=== PATIENT | female | born 1960 | race Caucasian/White ===

== ENCOUNTER → 2017-10-25 14:09 | Outpatient (CLI) | payer MEDICAID, SELFPAY ==
--- NOTE | 2017-10-25 14:13 | MM_ITS ---
MM Dig screening mamm BI w/CAD CAD Screening COMPARISON: Digital mammograms with CAD X 27/09/2014 and additional views of both breasts 10/17/2014 INDICATION: There is a history of breast cancer in patient's paternal cousin diagnosed before menopause. TECHNIQUE: Standard CC and MLO images were obtained. R2 CAD reviewed. FINDINGS: Moderate diffuse fibroglandular densities are seen throughout both breasts. There are couple benign-appearing calcifications in each breast. There is no suspicious lesion in either breast and there are no suspicious microcalcifications. A nodular densities seen in the left breast on previous mammogram is not seen and likely was a cyst which is decompressed. IMPRESSION: Moderate diffuse breast density with no suspicious lesion seen BI-RADS Category: 2 Benign Finding(s) RECOMMENDED FOLLOW-UP: 1YR - 1 YEAR FOLLOW-UP (A letter has been sent to the patient regarding results of the study.)
== END ==
PROVIDERS: PCP Internal Medicine Adolescent Medicine; Visit Provider Nurse Practitioner Family
DX: Z12.31 Encounter for screening mammogram for malignant neoplasm of breast (principal)
CPT/HCPCS: 77067

== ENCOUNTER → 2017-10-26 10:10 | Outpatient (CLI) | payer MEDICAID, SELFPAY ==
[2017-10-26 11:12] LABS: Basophils % 0.4 % (0.1-2.0); Eosinophils # 0.2 K/mm3 (0.0-0.4); Eosinophils % 1.7 % (0.1-12.0); Lymphocytes # 2.8 K/mm3 (0.7-4.5); Lymphocytes % 30.3 K/mm3 (10-50); Mean Corpuscular HGB Conc 31.7 g/dL (31.8-35.4); Mean Corpuscular Hemoglobin 28.2 pg (27.0-31.2); Mean Corpuscular Volume 89.1 fl (81-99); Mean Platelet Volume 9.8 fl (7.4-10.4); Monocytes # 0.5 K/mm3 (0.1-1.0); Monocytes % 5.9 % (1.7-9.3); Neutrophils # 5.6 K/mm3 (1.8-7.8); Neutrophils % 61.7 % (37.0-80.0); Platelet Count 247 K/mm3 (142-424); Red Blood Count 4.94 M/mm3 (4.20-5.40); Red Cell Distribution Width 14.4 % (11.5-17.5); White Blood Count 9.1 K/mm3 (4.8-10.8)
[2017-10-26 11:32] LABS: Alanine Aminotransferase 100 U/L (12-78); Albumin Level 3.8 gm/dL (3.4-5.0); Alkaline Phosphatase 90 U/L (46-116); Anion Gap 10.8 mEq/L (5-15); Aspartate Amino Transferase 60 U/L (15-37); Bilirubin,Total 0.3 mg/dL (0.2-1.0); Blood Urea Nitrogen 13 mg/dL (7-18); Calcium 9.1 mg/dL (8.5-10.1); Carbon Dioxide 28 mmol/L (21.0-32.0); Chloride 103 mmol/L (98-107); Chol/HDL Ratio 6.4 (1-3.5); Cholesterol 174 mg/dL (140-200); Creatinine,Serum 0.87 mg/dL (0.55-1.02); Estimated Glomerular Filt Rate 68 ml/min (>60); GFR (African American) 82 ML/MIN (>60); Globulin 3.7 gm/dl (1.3-3.2); Glucose 218 mg/dL (74-106); HDL Cholesterol 27 mg/dL (29-89); LDL Cholesterol 77 mg/dL (0-130); Potassium 3.8 mmoL/L (3.5-5.1); Sodium 138 mmol/L (136-145); Total Protein,Serum 7.5 gm/dL (6.4-8.2); Triglycerides 351 mg/dL (30-200); VLDL Cholesterol 70 mg/dL (0-40)
[2017-10-26 11:36] LABS: Hemoglobin A1C 6.9 % (0.0-7.0)
[2017-10-26 12:00] VITALS: PULSE 84
--- NOTE | 2017-10-26 12:16 | XR_ITS ---
XR chest 2V HISTORY: ITS.REASON: COPD WITH CHRONIC BRONCHITIS . COPD cough. Current smoker. ORDERING PHYSICIAN: Aniket Martínez MD PATIENT AGE: 57 years Technique: PA and lateral chest COMPARISON: 08/23/2015 AP chest & January 2013 2 view chest FINDINGS: Nothing definitely acute. The slight coarsening markings at the medial right and left lung base appears similar to previous studies no discrete focal pneumonia. 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 Hilar and mediastinal structures unchanged. Chest wall and T-spine stable.. Perhaps mild hyperexpansion. Borderline cardiomegaly. Normal pulmonary vascularity.. IMPRESSION: Nothing definitely acute. No significant new findings Borderline cardiomegaly. . Minor chronic changes.
--- NOTE | 2017-10-26 12:16 | US_ITS ---
US soft tissue head and neck Ordering Physician: Aniket Martínez MD Patient Age: 57 years: Female HISTORY: ITS.REASON: SOFT TISSUE ANOMALY NEC enlarging soft tissue mass of back TECHNIQUE: Ultrasound back. COMPARISON :No previous CT There is a previous ultrasound study from December 2012 FINDINGS Ultrasound survey of the large bulging mass of the left back inferior to the scapula shows a diffuse fairly homogeneous hypoechoic area most compatible with a large lipoma. It now measures nearly 3 cm AP.. (. It Appear to measure up to 1.5 cm AP on the previous 2012 ultrasound, supporting interval enlargement reported by patient.) Clinically measured this bulging mass spans at least 4 inches wide x 4.5 inches. length.. With this large size it is difficult a to evaluate its overall volume with ultrasound. Although ultrasound can suggest lipoma, CT can confirm fatty lipoma if need be.. CT is excellent imaging tool for fat. And CT of be required if surgery is contemplated to provide overview. (The technologist described this area spanning space from from approximately T4-T12 at the here at lef back.) IMPRESSION Findings are compatible with a large lipoma here at the left back,, inferior to the scapula. Patient that states that this has enlarged Ultrasound Imaging supports that has significantly enlarged when compared to 2013. Although most likely a lipoma by ultrasound appearance; CT would be to be required to confirm as lipoma & confirmed fat density here.
[2017-10-27 17:12] LABS: Vitamin D 25 Hydroxy 28.9 ng/mL (30.0-100.0)
[2017-10-28 10:13] LABS: Hep A Ab, IgM Negative (Negative); Hepatitis B Core Antibody IgM Negative (Negative); Hepatitis B Surface Antigen Negative (Negative)
[2017-10-28 18:29] LABS: Hepatitis C Antibody <0.1 s/co ratio (0.0-0.9)
== END ==
PROVIDERS: Nurse Practitioner Family; PCP Internal Medicine Adolescent Medicine; Visit Provider Internal Medicine Adolescent Medicine
DX: J44.9 Chronic obstructive pulmonary disease, unspecified (principal); Q79.8 Other congenital malformations of musculoskeletal system; E11.9 Type 2 diabetes mellitus without complications; E55.9 Vitamin D deficiency, unspecified; I10 Essential (primary) hypertension; E78.5 Hyperlipidemia, unspecified; G47.33 Obstructive sleep apnea (adult) (pediatric); R06.09 Other forms of dyspnea; Z72.0 Tobacco use; I27.20 Pulmonary hypertension, unspecified; E66.9 Obesity, unspecified
CPT/HCPCS: 36415; 71046; 76536; 80053; 80061; 80074; 82043; 82652; 83036; 85025; 94060; 94640; 94727; 94729

== ENCOUNTER → 2017-11-15 11:00 | Outpatient (CLI) | payer MEDICAID, SELFPAY ==
[2017-11-15 11:31] LABS: Basophils # 0.1 K/mm3 (0-0.2); Basophils % 0.7 % (0.1-2.0); Eosinophils # 0.1 K/mm3 (0.0-0.4); Eosinophils % 1.5 % (0.1-12.0); Hematocrit 43.5 % (37.0-47.0); Hemoglobin 14.1 g/dL (12.2-16.2); Lymphocytes # 3.2 K/mm3 (0.7-4.5); Lymphocytes % 34.2 K/mm3 (10-50); Mean Corpuscular HGB Conc 32.3 g/dL (31.8-35.4); Mean Corpuscular Volume 89.8 fl (81-99); Monocytes # 0.6 K/mm3 (0.1-1.0); Monocytes % 6.8 % (1.7-9.3); Neutrophils # 5.4 K/mm3 (1.8-7.8); Neutrophils % 56.8 % (37.0-80.0); Platelet Count 255 K/mm3 (142-424); Red Blood Count 4.85 M/mm3 (4.20-5.40); Red Cell Distribution Width 14.4 % (11.5-17.5); White Blood Count 9.4 K/mm3 (4.8-10.8)
[2017-11-15 13:52] LABS: Anion Gap 15.3 mEq/L (5-15); Blood Urea Nitrogen 18 mg/dL (7-18); Carbon Dioxide 28 mmol/L (21.0-32.0); Chloride 103 mmol/L (98-107); Creatinine,Serum 0.89 mg/dL (0.55-1.02); Estimated Glomerular Filt Rate 66 ml/min (>60); GFR (African American) 80 ML/MIN (>60); Glucose 211 mg/dL (74-106); Potassium 4.3 mmoL/L (3.5-5.1); Sodium 142 mmol/L (136-145)
== END ==
PROVIDERS: Visit Provider Surgery
DX: Z01.818 Encounter for other preprocedural examination (principal); D17.1 Benign lipomatous neoplasm of skin and subcutaneous tissue of trunk
CPT/HCPCS: 36415; 80048; 85025; 93005

== ENCOUNTER → 2017-12-15 14:12 | Outpatient (CLI) | payer MEDICAID, SELFPAY | PROVIDERS: PCP Internal Medicine Adolescent Medicine; Visit Provider Internal Medicine | DX: R01.1 Cardiac murmur, unspecified (principal) | CPT/HCPCS: 93306 ==

== ENCOUNTER → 2017-12-18 14:54 | Outpatient (CLI) | payer MEDICAID, SELFPAY ==
[2017-12-18 16:30] LABS: Alanine Aminotransferase 107 U/L (12-78); Albumin Level 3.6 gm/dL (3.4-5.0); Albumin/Globulin Ratio 1.1 (1.1-1.8); Alkaline Phosphatase 100 U/L (46-116); Anion Gap 13.9 mEq/L (5-15); Aspartate Amino Transferase 64 U/L (15-37); Bilirubin,Total 0.3 mg/dL (0.2-1.0); Blood Urea Nitrogen 12 mg/dL (7-18); Calcium 9.1 mg/dL (8.5-10.1); Carbon Dioxide 28 mmol/L (21.0-32.0); Chloride 105 mmol/L (98-107); Creatinine,Serum 0.74 mg/dL (0.55-1.02); Estimated Glomerular Filt Rate 81 ml/min (>60); GFR (African American) 99 ML/MIN (>60); Globulin 3.2 gm/dl (1.3-3.2); Glucose 183 mg/dL (74-106); Potassium 4.9 mmoL/L (3.5-5.1); Sodium 142 mmol/L (136-145); Total Protein,Serum 6.8 gm/dL (6.4-8.2)
== END ==
PROVIDERS: PCP Internal Medicine Adolescent Medicine; Visit Provider Nurse Practitioner Family
DX: R74.8 Abnormal levels of other serum enzymes (principal)
CPT/HCPCS: 36415; 80053

== ENCOUNTER → 2018-01-15 08:30 | Outpatient (CLI) | payer MEDICAID, SELFPAY ==
--- NOTE | 2018-01-15 10:00 | US_ITS ---
US liver HISTORY: ITS.REASON: ELEVATED LIVER ENZYMES ORDERING PHYSICIAN: Annabella Maradiaga PATIENT AGE: 57 years COMPARISON: None FINDINGS: PANCREAS:Unremarkable. No obvious mass or abnormal fluid collection. No ductal dilatation LIVER:No focal liver lesions demonstrated. Homogeneous echogenicity. No intrahepatic biliary ductal dilatation evident. There is appropriate directional blood flow within a nondilated portal vein. There is increased echogenicity of the liver suggesting hepatic steatosis. RIGHT KIDNEY:Unremarkable. Normal size and echogenicity. No hydronephrosis GALLBLADDER:Gallbladder is mildly distended at 9.5 x 3 cm. There is a small polyp lung stress. The gallbladder wall does not appear to move or shadow measuring 6 mm. Echogenic focus is present along the upper aspect of the gallbladder with some mild posterior acoustical shadowing which represent small stone. No biliary dilatation. No gallbladder wall thickening or pericholecystic fluid. IMPRESSION: 1. Small gallbladder polyp with possible cyst small adherent stone 2. Mildly distended gallbladder. 3. Increased echogenicity of liver suggesting fatty liver
== END ==
PROVIDERS: PCP Internal Medicine Adolescent Medicine; Visit Provider Nurse Practitioner Family
DX: R74.8 Abnormal levels of other serum enzymes (principal)
CPT/HCPCS: 76705

== ENCOUNTER → 2018-01-23 10:07 | Outpatient (CLI) | payer MEDICAID, SELFPAY ==
[2018-01-23 11:53] LABS: Basophils # 0.1 K/mm3 (0-0.2); Basophils % 0.6 % (0.1-2.0); Eosinophils # 0.2 K/mm3 (0.0-0.4); Eosinophils % 2.4 % (0.1-12.0); Hematocrit 38.8 % (37.0-47.0); Hemoglobin 12.6 g/dL (12.2-16.2); Lymphocytes # 2.8 K/mm3 (0.7-4.5); Lymphocytes % 32.9 K/mm3 (10-50); Mean Corpuscular HGB Conc 32.6 g/dL (31.8-35.4); Mean Corpuscular Hemoglobin 29.4 pg (27.0-31.2); Mean Corpuscular Volume 90.3 fl (81-99); Mean Platelet Volume 8.7 fl (7.4-10.4); Monocytes # 0.5 K/mm3 (0.1-1.0); Monocytes % 6.2 % (1.7-9.3); Neutrophils # 4.9 K/mm3 (1.8-7.8); Neutrophils % 57.9 % (37.0-80.0); Platelet Count 245 K/mm3 (142-424); Red Cell Distribution Width 14.3 % (11.5-17.5); White Blood Count 8.5 K/mm3 (4.8-10.8)
[2018-01-23 12:39] LABS: Alanine Aminotransferase 64 U/L (12-78); Albumin Level 3.9 gm/dL (3.4-5.0); Albumin/Globulin Ratio 1.2 (1.1-1.8); Alkaline Phosphatase 80 U/L (46-116); Aspartate Amino Transferase 45 U/L (15-37); Bilirubin,Total 0.4 mg/dL (0.2-1.0); Blood Urea Nitrogen 32 mg/dL (7-18); Calcium 9.3 mg/dL (8.5-10.1); Carbon Dioxide 30 mmol/L (21.0-32.0); Chloride 101 mmol/L (98-107); Creatinine,Serum 1.41 mg/dL (0.55-1.02); Estimated Glomerular Filt Rate 39 ml/min (>60); GFR (African American) 47 ML/MIN (>60); Globulin 3.2 gm/dl (1.3-3.2); Glucose 131 mg/dL (74-106); Sodium 140 mmol/L (136-145); Total Protein,Serum 7.1 gm/dL (6.4-8.2)
== END ==
PROVIDERS: PCP Internal Medicine Adolescent Medicine; Visit Provider Surgery
DX: K80.20 Calculus of gallbladder without cholecystitis without obstruction (principal)
CPT/HCPCS: 36415; 80053; 85025

== ENCOUNTER → 2018-05-22 10:38 | Outpatient (POV) | payer MEDICAID, SELFPAY | PROVIDERS: Visit Provider Internal Medicine | DX: Z00.00 Encounter for general adult medical examination without abnormal findings (principal) ==

== ENCOUNTER → 2018-06-20 12:58 | Outpatient (CLI) | payer MEDICAID, SELFPAY ==
--- NOTE | 2018-06-20 13:03 | CT_ITS ---
CT lung screening EXAM: CT LUNG LOW DOSE WO CONTRAST HISTORY: 30 pack-year smoking history, asymptomatic for lung cancer ITS.REASON: NICOTINE DEPENDENCE ORDERING PHYSICIAN: Gonzalez Bermudez MD PATIENT AGE: 58 years COMPARISON: None TECHNIQUE: The exam was performed on a GE Light Speed [address] scanner using 2.90 mGy CTDI. A low dose helical CT CHEST was performed on a multi-detector scanner. All CT scans at the facility use one or more dose reduction, viz: automated exposure control, ma/kV adjustment per patient size (including targeted exams where dose is matched to indication, i.e. head), or iterative reconstruction technique. The LDCT was performed in a facility that meets the criteria for the screening program. Data regarding this exam was submitted to ACR which is an approved registry. The order for this exam indicates that it came as a result of a lung cancer screening counseling shard decision-making visit that included all the elements required of such a visit including smoking cessation. The radiologist interpreting this exam meets the [facility] criteria for the LDCT lung cancer screening program. The exam is reported using the Lung-RADS classification scale and reported to the ACR registry. NOTE: This study was performed for the specific purposes of lung cancer screening and is not an alternative to diagnostic chest CT. RADIATION DOSE: CTDI vol(CT dose Index-volume) = 2.90mG DLP (Dose Length Product) = 110.20 mGcm FINDINGS: There are scattered calcified granulomas. Mild hyperinflation with attenuation of the peripheral pulmonary vessels and some coarsening of bronchovascular markings consistent with COPD. No suspicious pulmonary nodules. There are some scattered areas of scarring IMPRESSION: 1. Lung RADS Category: 2, benign 2. Other findings: COPD RECOMMENDATIONS: 12 month LDCT follow-up
[2018-06-20 15:45] VITALS: PULSE 76; PULSE 80
[2018-06-20 16:17] VITALS: BP 115/75; BP 135/90; PULSE 102; PULSE 76; RESP 14; RESP 20; O2SAT 96; O2SAT 98
== END ==
PROVIDERS: PCP Internal Medicine Adolescent Medicine; Visit Provider Internal Medicine
DX: Z12.2 Encounter for screening for malignant neoplasm of respiratory organs (principal); Z87.891 Personal history of nicotine dependence
CPT/HCPCS: 94060; 94618; 94640; 94726; 94729

== ENCOUNTER → 2018-06-26 08:54 | Outpatient (CLI) | payer MEDICAID, SELFPAY ==
--- NOTE | 2018-06-26 09:00 | XR_ITS ---
XR knee RT 4V HISTORY: Knee pain, arthritis ITS.REASON: 4 views weightbearing ORDERING PHYSICIAN: Lexie Garrison MD PATIENT AGE: 58 years COMPARISON: 08/11/2016 FINDINGS: Weightbearing views are performed along with patellar view. There are moderate to severe osteoarthritic changes of the medial compartment with loss of joint space and osteophyte formation. Osteophytes are also present at the intercondylar region and the posterior patella. There is a small knee joint effusion in the suprapatellar region. No fracture or dislocation. Probably no significant change in the osteoarthritis concerning the difference in technique. IMPRESSION: Osteoarthritis of the right knee with knee joint effusion as described above
--- NOTE | 2018-06-26 09:00 | XR_ITS ---
XR knee LT 4V HISTORY: Knee pain, osteoarthritis ITS.REASON: 4 views weightbearing ORDERING PHYSICIAN: Lexie Garrison MD PATIENT AGE: 58 years COMPARISON: 08/11/2016 FINDINGS: There are moderate osteoarthritic changes of the medial compartment of left knee with loss of joint space and osteophyte formation. Osteophytes are present at the posterior patella and intercondylar region of the distal femur. Small suprapatellar effusion noted. IMPRESSION: Overall no significant change in the osteoarthritis of the left knee with small knee joint effusion
== END ==
PROVIDERS: PCP Internal Medicine Adolescent Medicine; Visit Provider Orthopaedic Surgery
DX: M25.561 Pain in right knee (principal); M25.562 Pain in left knee
CPT/HCPCS: 73564

== ENCOUNTER → 2019-03-25 15:35 | Outpatient (CLI) | payer OTHER, SELFPAY ==
[2019-03-25 16:02] LABS: Basophils # 0.1 K/mm3 (0-0.2); Basophils % 0.6 % (0.1-2.0); Eosinophils # 0.2 K/mm3 (0.0-0.4); Eosinophils % 1.4 % (0.1-12.0); Hemoglobin 13.8 g/dL (12.2-16.2); Lymphocytes # 3.9 K/mm3 (0.7-4.5); Lymphocytes % 33.9 % (10-50); Mean Corpuscular Hemoglobin 29.3 pg (27.0-31.2); Mean Corpuscular Volume 91.5 fl (81-99); Monocytes # 0.7 K/mm3 (0.1-1.0); Monocytes % 5.7 % (1.7-9.3); Neutrophils # 6.6 K/mm3 (1.8-7.8); Neutrophils % 58.4 % (37.0-80.0); Platelet Count 307 K/mm3 (142-424); Red Blood Count 4.71 M/mm3 (4.20-5.40); Red Cell Distribution Width 15.1 % (11.5-17.5); White Blood Count 11.4 K/mm3 (4.8-10.8)
[2019-03-25 17:01] LABS: Hemoglobin A1C 8.1 % (0.0-7.0)
[2019-03-25 18:30] LABS: Alanine Aminotransferase 63 U/L (12-78); Albumin Level 3.7 gm/dL (3.4-5.0); Albumin/Globulin Ratio 1.1 (1.1-1.8); Alkaline Phosphatase 95 U/L (46-116); Aspartate Amino Transferase 45 U/L (15-37); Bilirubin,Total 0.3 mg/dL (0.2-1.0); Blood Urea Nitrogen 30 mg/dL (7-18); Carbon Dioxide 26 mmol/L (21.0-32.0); Chloride 101 mmol/L (98-107); Chol/HDL Ratio 5.7 (1-3.5); Cholesterol 177 mg/dL (140-200); Creatinine,Serum 1.41 mg/dL (0.55-1.02); Estimated Glomerular Filt Rate 38 ml/min (>60); GFR (African American) 47 ML/MIN (>60); Globulin 3.4 gm/dl (1.3-3.2); Glucose 145 mg/dL (74-106); HDL Cholesterol 31 mg/dL (29-89); LDL Cholesterol 84 mg/dL (0-130); Sodium 140 mmol/L (136-145); Thyroid Stimulating Hormone 2.02 uIU/ml (0.358-3.740); Total Protein,Serum 7.1 gm/dL (6.4-8.2); Triglycerides 312 mg/dL (30-200); VLDL Cholesterol 62 mg/dL (0-40)
[2019-03-27 08:21] LABS: Microalbumin, Urine 6.2 ug/mL (Not Estab.)
[2019-03-27 13:17] LABS: Vitamin D 25 Hydroxy 22.8 ng/mL (30.0-100.0)
== END ==
PROVIDERS: Visit Provider Nurse Practitioner Family
DX: E66.01 Morbid (severe) obesity due to excess calories (principal); J44.9 Chronic obstructive pulmonary disease, unspecified; E55.9 Vitamin D deficiency, unspecified; E11.9 Type 2 diabetes mellitus without complications; Z79.84 Long term (current) use of oral hypoglycemic drugs
CPT/HCPCS: 36415; 80053; 80061; 82043; 82570; 82652; 83036; 84443; 85025

== ENCOUNTER → 2019-07-24 18:45 | Outpatient (CLI) | payer OTHER, SELFPAY | PROVIDERS: PCP Internal Medicine Adolescent Medicine; Visit Provider Nurse Practitioner Family | DX: J44.9 Chronic obstructive pulmonary disease, unspecified (principal); G47.33 Obstructive sleep apnea (adult) (pediatric); I27.20 Pulmonary hypertension, unspecified; F17.200 Nicotine dependence, unspecified, uncomplicated | CPT/HCPCS: 94762 ==

== ENCOUNTER → 2019-08-14 15:30 | Outpatient (CLI) | payer OTHER, SELFPAY ==
[2019-08-14 15:50] LABS: Basophils # 0.1 K/mm3 (0-0.2); Basophils % 0.9 % (0.1-2.0); Eosinophils # 0.2 K/mm3 (0.0-0.4); Eosinophils % 1.3 % (0.1-12.0); Hematocrit 40.6 % (37.0-47.0); Hemoglobin 12.9 g/dL (12.2-16.2); Lymphocytes # 4.6 K/mm3 (0.7-4.5); Lymphocytes % 33.9 % (10-50); Mean Corpuscular HGB Conc 31.8 g/dL (31.8-35.4); Mean Corpuscular Hemoglobin 29.4 pg (27.0-31.2); Mean Corpuscular Volume 92.5 fl (81-99); Monocytes # 0.8 K/mm3 (0.1-1.0); Monocytes % 6.2 % (1.7-9.3); Neutrophils # 7.8 K/mm3 (1.8-7.8); Neutrophils % 57.6 % (37.0-80.0); Platelet Count 304 K/mm3 (142-424); Red Blood Count 4.38 M/mm3 (4.20-5.40); Red Cell Distribution Width 15.3 % (11.5-17.5); White Blood Count 13.6 K/mm3 (4.8-10.8)
[2019-08-14 17:29] LABS: Alanine Aminotransferase 24 U/L (12-78); Albumin Level 4.4 g/dl (3.5-5.0); Albumin/Globulin Ratio 1.8 (1.1-1.8); Alkaline Phosphatase 71 U/L (38-126); Anion Gap 8.7 mEq/L (5-15); Aspartate Amino Transferase 22 U/L (14-36); Blood Urea Nitrogen 19 mg/dl (7-17); Calcium 9.7 mg/dl (8.4-10.2); Carbon Dioxide 29 mmol/L (22.0-30.0); Chloride 105 mmol/L (98-107); Estimated Glomerular Filt Rate 46 ml/min (>60); GFR (African American) 56 ML/MIN (>60); Globulin 2.4 g/dL (1.3-3.2); Glucose 117 mg/dl (74-100); Potassium 4.7 mmoL/L (3.5-5.1); Sodium 138 mmol/L (136-145); Total Protein,Serum 6.8 g/dl (6.3-8.2)
[2019-08-14 17:30] LABS: Bilirubin,Total < 0.1 mg/dl (0.2-1.3)
[2019-08-14 18:16] LABS: Hemoglobin A1C 6.6 % (4.0-6.0)
[2019-08-16 09:58] LABS: Creatinine, Urine 153.2 mg/dL (Not Estab.); Microalbumin, Urine 4.6 ug/mL (Not Estab.)
== END ==
PROVIDERS: Visit Provider Nurse Practitioner Family
DX: E11.9 Type 2 diabetes mellitus without complications (principal); G47.33 Obstructive sleep apnea (adult) (pediatric); Z79.84 Long term (current) use of oral hypoglycemic drugs
CPT/HCPCS: 36415; 80053; 82043; 82570; 83036; 85025

== ENCOUNTER 2019-09-04 23:36 | Emergency (ER) | payer OTHER, SELFPAY ==
[2019-09-04 23:54] VITALS: BP 128/83; PULSE 78; RESP 18; TEMP 36.8; O2SAT 98; BMI 46.3
--- NOTE | 2019-09-05 00:05 | XR_ITS ---
PROCEDURE: XR SHOULDER RT MIN 2V CLINICAL INDICATION: swelling Right shoulder mass COMPARISON: CT SHOULDER RT W CON from 09/05/2019 FINDINGS: Minimal osteoarthritic change acromioclavicular joint with mild subacromial stenosis. No fracture or dislocation. No lytic or blastic change. No soft tissue calcification. There is reported soft tissue mass of the shoulder for which CT or MRI suggested for more thorough evaluation. IMPRESSION: Mild degenerative changes Dictated by: Nuno Pisano MD 09/05/2019 07:16 Electronically signed by Nuno Pisano MD in [place] 09/05/2019 07:16
--- NOTE | 2019-09-05 01:16 | HMH.EDSKAF ---
ED Disposition Clinical Impression: Mass of arm Qualifiers: Laterality: right Qualified Code(s): R22.31 - Localized swelling, mass and lump, right upper limb Disposition: Home, Self-Care Condition on Discharge: Good Instructions: DI for Skin Abscess Additional Instructions: call pcp and surg in am Referrals: Aniket Martínez MD [Primary Care Provider] - Zaid Zimmerman MD [Staff Physician] - - Critical Care Critical Care Time: No Attestation: On 09/04/19, the high probability of a clinically significant, sudden or life threatening deterioration of the following system(s) required my full and direct attention, intervention and personal management. The time I documented below is in addition to time spent performing reported procedures but includes the following listed in this critical care notation. Medical Decision Making - Medical Records Medical records reviewed: Yes: I reviewed the patient's medical records. - Karsten Inquiry Pt receiving controlled substance: No Vital Signs: 09/04/19 23:54 Temperature 98.3 F Temperature Source Oral Pulse Rate [Right] 78 Respiratory Rate 18 Blood Pressure [Right Arm] 128/83 Blood Pressure Mean [Right Arm] 98 Blood Pressure Source [Right Arm] Automatic Cuff Blood Pressure Position [Right Arm] Sitting 02 Sat by Pulse Oximetry 98 Oxygen Delivery Method Room Air - Lab Data Lab results reviewed: Yes: I reviewed the patient's lab results. Lab Results 09/05/19 01:25: WBC 13.4 H, RBC 4.27, Hgb 13.0, Hct 38.5, MCV 90.0, MCH 30.4, MCHC 33.8, RDW 15.8, Plt Count 275, MPV 8.9, Neut % (Auto) 54.7, Lymph % (Auto) 38.0, [place] % (Auto) 4.9, Eos % (Auto) 1.4, Baso % (Auto) 1.0, Neut # (Auto) 7.4, Lymph # (Auto) 5.1 H, Teton # (Auto) 0.7, Eos # (Auto) 0.2, Baso # (Auto) 0.1 09/05/19 01:25: Sodium 138, Potassium 3.7, Chloride 104, Carbon Dioxide 27, Anion Gap 10.7, BUN 19 H, Creatinine 1.10 H, Estimated Creat Clear 45, Estimated GFR 51 L, Est GFR ( Amer) 62, Glucose 176 H, Calcium 9.5 Result diagrams: 09/05/19 01:25 09/05/19 01:25 Orders (Tests/Meds): ED MEDICATIONS Discontinued Medications Generic Name Dose Route Start Last Admin Trade Name Anastasia PRN Reason Stop Dose Admin Ioversol 70 ml 09/05/19 02:28 09/05/19 02:29 Rad-Optiray 350 100ml Vial IV 09/05/19 02:29 70 ml ONCE ONE Administration Protocol Sodium Chloride 10 ml 09/05/19 02:28 09/05/19 02:28 Rad-Saline Flush 10ml Syringe IV 09/05/19 02:29 10 ml ONCE ONE Administration ORDERS Category Date Time Status CT shoulder RT w con Stat Cat Scan 09/05/19 01:21 Taken XR shoulder RT min 2V Stat Exams 09/05/19 00:05 Taken - Radiology Data #1 Image(s): Shoulder Image Reviewed: Yes I reviewed the patient's radiology image Preliminary Findings: No Fracture Seen - CT Data CT Scan: Other (rt shoulder) Time Received: 02:[address] Reviewed: Yes: I have viewed the radiologist's interpretation Preliminary Findings: Abnormal (mass rt deltoid ) Skin/Abscess/FB HPI - General Chief complaint: Extremity Problem,Nontraumatic Stated complaint: Knot on right shoulder red and swollen Time Seen by Provider: 09/05/19 01:00 Mode of Arrival: Ambulatory Source of Information: Patient, Medical Record Limitations: No Limitations Description of Symptoms (Recalled from ER Triage Doc. by RN): Pt states she noticed swelling to her right shoulder tonight, denies pain or injury - History of Present Illness HPI narrative: swelling to rt shoulder which pt states started yesterday - no fever or trauma - MD complaint: lesion Onset (ago): day(s) Tetanus up to date: unsure Location: RUE Severity: moderate Associated symptoms: denies other symptoms Treatments prior to arrival: none - Related Data Home Medications Medication Instructions Recorded Confirmed canagliflozin 100 mg tablet 100 mg PO QAM 08/14/17 06/27/19 cetirizine 10 mg tablet 10 mg PO DAILY tab 08/14/17 06/27/19 fl
--- NOTE | 2019-09-05 01:21 | CT_ITS ---
PROCEDURE: CT SHOULDER RT W CON CLINICAL HISTORY: mass Palpable right shoulder mass COMPARISON: No exams were available for comparison TECHNIQUE: 70 mL Optiray 350 IV Axial images obtained with sagittal and coronal reformats. All CT scans at the facility use one or more dose reduction, viz: automated exposure control, ma/kV adjustment per patient size (including targeted exams where dose is matched to indication, i.e. head), or iterative reconstruction technique. FINDINGS: Patient was scanned with the arm above the head which somewhat distorts the anatomy of the shoulder. There is a fairly well-circumscribed oval soft tissue mass involving the central aspect of the deltoid muscle. This measures 3.7 x 3 x 3.3 cm and is homogeneous without significant enhancement. This does not involve the bone. No other significant anomalies are evident. There is calcified granuloma in the right upper lobe. There are few small nodes in the right axilla. Differential diagnosis for muscle soft tissue masses differential diagnosis for muscle masses IMPRESSION: 3.7 x 3 cm soft tissue mass contiguous with the central aspect of the right deltoid muscle suspicious for neoplasm. This has a nonspecific appearance and could be malignant or benign. Consider MRI without and with contrast for further evaluation. Dictated by: Nuno Pisano MD 09/05/2019 07:47 Electronically signed by Nuno Pisano MD in [place] 09/05/2019 07:47
[2019-09-05 01:42] LABS: Basophils # 0.1 K/mm3 (0-0.2); Eosinophils # 0.2 K/mm3 (0.0-0.4); Eosinophils % 1.4 % (0.1-12.0); Hematocrit 38.5 % (37.0-47.0); Lymphocytes # 5.1 K/mm3 (0.7-4.5); Mean Corpuscular HGB Conc 33.8 g/dL (31.8-35.4); Mean Corpuscular Hemoglobin 30.4 pg (27.0-31.2); Mean Platelet Volume 8.9 fl (7.4-10.4); Monocytes # 0.7 K/mm3 (0.1-1.0); Monocytes % 4.9 % (1.7-9.3); Neutrophils # 7.4 K/mm3 (1.8-7.8); Neutrophils % 54.7 % (37.0-80.0); Platelet Count 275 K/mm3 (142-424); Red Blood Count 4.27 M/mm3 (4.20-5.40); Red Cell Distribution Width 15.8 % (11.5-17.5); White Blood Count 13.4 K/mm3 (4.8-10.8)
[2019-09-05 01:46] LABS: Anion Gap 10.7 mEq/L (5-15); Blood Urea Nitrogen 19 mg/dl (7-17); Calcium 9.5 mg/dl (8.4-10.2); Carbon Dioxide 27 mmol/L (22.0-30.0); Chloride 104 mmol/L (98-107); Creatinine Clearance Estimated 45 mL/min (50-200); Estimated Glomerular Filt Rate 51 ml/min (>60); GFR (African American) 62 ML/MIN (>60); Glucose 176 mg/dl (74-100); Potassium 3.7 mmoL/L (3.5-5.1); Sodium 138 mmol/L (136-145)
[2019-09-05 02:58] VITALS: BP 130/78; PULSE 70; RESP 16; TEMP 36.8; O2SAT 100
== END 2019-09-05 02:59 | disposition home or self-care (01) ==
PROVIDERS: Emergency Provider Emergency Medicine; PCP Internal Medicine Adolescent Medicine
DX: R22.31 Localized swelling, mass and lump, right upper limb (principal); F41.8 Other specified anxiety disorders; K21.9 Gastro-esophageal reflux disease without esophagitis; J44.9 Chronic obstructive pulmonary disease, unspecified; E78.5 Hyperlipidemia, unspecified; I10 Essential (primary) hypertension; F17.210 Nicotine dependence, cigarettes, uncomplicated; Z79.899 Other long term (current) drug therapy
CPT/HCPCS: 73030; 73201; 80048; 85025; 99282; Q9967

== ENCOUNTER → 2019-09-16 10:22 | Outpatient (CLI) | payer OTHER, SELFPAY ==
--- NOTE | 2019-09-16 10:27 | MR_ITS ---
PROCEDURE: MR HUMERUS RT WO CON CLINICAL INDICATION: MASS OF DELTOID MUSCLE The radiology of muscle COMPARISON: CT SHOULDER RT W CON from 09/05/2019 TECHNIQUE: Routine multiplanar multi echo sequences are performed without gadolinium enhancement. FINDINGS: There is a well-circumscribed spindle shaped small soft tissue mass involving the junction the mid and anterior aspect of the deltoid muscle at the level of the humeral head. This lesion is isointense to muscle on T1 and hyperintense on T2 with some heterogeneous characteristics on the T2 images. This is peripheral in nature. The mass measures 5 cm longitudinal, 2.7 cm AP, and 3 cm transverse. Contrast was not utilized therefore enhancement pattern is not able to be assessed. No neurovascular involvement. This does not involve the bone and does not extend to the deepest portion of the muscle adjacent to the humeral head. There is some minimal amount fluid along the posterior and lateral aspect of the lesion. No obvious axillary adenopathy or other significant anomalies evident. IMPRESSION: Superficial spindle shaped well-circumscribed soft tissue mass of the deltoid muscle. Mass does show some heterogeneity on the T2 weighted images. Differential diagnosis would include low-grade sarcoma versus nerve sheath tumor such as schwannoma, neurofibroma or fibrous histiocytoma. This does not have fat characteristics and is not consistent with a lipoma or liposarcoma. Dictated by: Nuno Pisano MD 09/17/2019 17:02 Electronically signed by Nuno Pisano MD in [place] 09/17/2019 17:02
== END ==
PROVIDERS: PCP Internal Medicine Adolescent Medicine; Visit Provider Internal Medicine Adolescent Medicine
DX: M62.89 Other specified disorders of muscle (principal); R22.31 Localized swelling, mass and lump, right upper limb
CPT/HCPCS: 73218

== ENCOUNTER → 2019-09-18 14:51 | Outpatient (CLI) | payer OTHER, SELFPAY ==
--- NOTE | 2019-09-18 15:10 | ECG_ITS ---
APPROVED REPORT Exam: Resting ECG HR:70 bpm ECG Measurements Heart Rate 70 AXES TN 162 P 60 QRSd 88 QRS 9 QT 420 T 55 QTc 453 <Conclusion> Normal sinus rhythm Possible Left atrial enlargement Borderline ECG Electronically signed by : Lawrence Molina, 09/18/2019 17:31:46
[2019-09-18 15:12] LABS: Basophils # 0.2 K/mm3 (0-0.2); Basophils % 1.2 % (0.1-2.0); Eosinophils # 0.3 K/mm3 (0.0-0.4); Eosinophils % 1.5 % (0.1-12.0); Hematocrit 41.2 % (37.0-47.0); Hemoglobin 13.9 g/dL (12.2-16.2); Lymphocytes # 6.4 K/mm3 (0.7-4.5); Lymphocytes % 38.2 % (10-50); Mean Corpuscular HGB Conc 33.9 g/dL (31.8-35.4); Mean Corpuscular Hemoglobin 30.6 pg (27.0-31.2); Mean Corpuscular Volume 90.4 fl (81-99); Mean Platelet Volume 8.5 fl (7.4-10.4); Monocytes # 0.8 K/mm3 (0.1-1.0); Monocytes % 4.9 % (1.7-9.3); Neutrophils % 54.1 % (37.0-80.0); Platelet Count 362 K/mm3 (142-424); Red Blood Count 4.55 M/mm3 (4.20-5.40); Red Cell Distribution Width 15.2 % (11.5-17.5); White Blood Count 16.6 K/mm3 (4.8-10.8)
[2019-09-18 15:13] LABS: MANUAL DIFFERENTIAL MANUAL DIFFERENTIAL (MANUAL DIFF)
[2019-09-18 15:40] LABS: Chloride 101 mmol/L (98-107)
[2019-09-18 15:41] LABS: Lymphocytes % 36 % (10-50); Monocytes % 5 % (2-9); Neutrophils % 59 % (42-76); Platelet Estimate Normal; Potassium 4.1 mmoL/L (3.5-5.1); RBC Morphology Normal; Sodium 139 mmol/L (136-145); Total Cells Counted 100
[2019-09-18 15:43] LABS: Alanine Aminotransferase 39 U/L (12-78); Alkaline Phosphatase 97 U/L (38-126); Aspartate Amino Transferase 29 U/L (14-36); Bilirubin,Total 0.4 mg/dl (0.2-1.3); Blood Urea Nitrogen 15 mg/dl (7-17); Estimated Glomerular Filt Rate 51 ml/min (>60); GFR (African American) 62 ML/MIN (>60)
[2019-09-18 15:44] LABS: Albumin Level 4.5 g/dl (3.5-5.0); Albumin/Globulin Ratio 1.6 (1.1-1.8); Anion Gap 13.1 mEq/L (5-15); Calcium 9.9 mg/dl (8.4-10.2); Carbon Dioxide 29 mmol/L (22.0-30.0); Globulin 2.8 g/dL (1.3-3.2); Glucose 120 mg/dl (74-100); Total Protein,Serum 7.3 g/dl (6.3-8.2)
[2019-09-18 16:13] LABS: Coronavirus 19 IgG Antibody Negative (Negative); Coronavirus 19 IgM Antibody Negative (Negative)
== END ==
PROVIDERS: Visit Provider Surgery
DX: Z01.818 Encounter for other preprocedural examination (principal); D17.9 Benign lipomatous neoplasm, unspecified
CPT/HCPCS: 36415; 80053; 85007; 85025; 86328; 93005

== ENCOUNTER 2019-09-20 06:10 | Day surgery (SDC) | payer OTHER, SELFPAY ==
[2019-09-20] VITALS (9 sets, daily range): BP systolic 104–140; BP diastolic 67–84; PULSE 76–86; RESP 12–18; TEMP 36.1–36.6; O2SAT 90–98; BMI 45.3
[2019-09-20 06:39] LABS: POC Glucose,Bedside 178 (70-110)
--- NOTE | 2019-09-20 07:32 | P.PN_ITS ---
[facility] Anesthesia Checklist - Structural Data Admitted From: Home Planned Operative Procedure/s: excision neoplasm r shoulder Consent for Planned Operative Procedure(s) Verified: Yes - Additional verifications Anesthesia Reactions: No Hx Blood Transfusions: No Blood Transfusion Reaction: No - Airway Assessment C-Spine Mobility Assessed: Yes TMJ Mobility Assessed: Yes Dentition: Poor Dentition - Neurological Assessment Level of Consciousness: Awake, Alert, Appropriate - Anesthesia Plan Anesthesia Risk discussed: Yes Anesthesia Plan: Verified ASA Class: III Anesthesia Type: General [facility] History I have reviewed the patient's past medical history: Yes Medical History: Reports:: Anxiety, Asthma, Chronic Obstructive Pulmonary Disease (COPD), Depression, Diabetes Mellitus Type 2, Gastroesophageal Reflux Disease(GERD), Hyperlipidemia, Hypertension, Ulcer Denies:: Cancer, Diabetes Mellitus Type 1, Internal Pacemaker, MRSA, Seizures *Have you ever received a pneumonia vaccine?: No *Have you received a flu vaccine this season?: Yes Other Medical History: Reports: Other. Denies: Blood Transfusion Reaction Anesthesia experience/problems:: none Laterality Cases: Bilateral: Other Other Surgeries: Yes: Cancer Surgery, Cholecystectomy, Colonoscopy, , Tubal Ligation. No: Pacemaker Amputation: No Fractures: No - *Social History Educational Level: Attended High School Smoking Status: Current every day smoker Tobacco Type: cigarettes # Packs/Day (cigarettes): 1 Alcohol Intake: never Alcohol Intake Frequency:: other Substance Use Type: denies use *Occupational Status:: disabled Housing: apartment Household Members: none *Travel in the last 8 weeks: None - Psychiatric History Pschychiatric History:: Reports:: Anxiety, Depression Family Hx:: Diabetes, Heart Attack
--- NOTE | 2019-09-20 07:40 | HMH.ANESI ---
[facility] Anesthesia Record Part I Intake, IV Amount: 1,000 Estimated blood loss (mL): 0 Urine output (mL): 0 Blood Pressure: 126/67 SaO2: 90 Pulse Rate: 79 Respiratory Rate: 12 Temperature: 97 F Patient is:: Awake, Stable Stable to PACU at:: 07:35
--- NOTE | 2019-09-20 07:48 | HMH.OPNOTE ---
Date of procedure: 09/20/19 Pre-op Diagnosis:: Right deltoid lipoma (6 cm) Post-op Diagnosis:: Right deltoid mass (intramuscular lymphoid mass Procedure performed:: Excision of right intramuscular right deltoid mass (6 cm) Surgeon:: Zaid Zimmerman MD PHLEBOTOMY TECHNOLOGIST:: Kareem Gómez Anesthesia: LMA Estimated blood loss (mL): 10 Operative findings:: Lobulated intramuscular right deltoid mass with findings consistent with lymphoid tissue (not lipoma) Operative note:: After informed consent was obtained the patient was taken to the operating room and placed in the supine position. General anesthesia with laryngeal mask airway was achieved. The patient's right upper arm/deltoid region was prepped and draped in a sterile fashion. After infiltration local anesthetic an incision was made overlying the longitudinal axis of the mass. The deep subcutaneous tissue was dissected with electrocautery. The fascia overlying the deltoid was carefully opened. An intramuscular mass was carefully elevated and excised with a combination of blunt dissection and electrocautery. It was freed from surrounding tissue and passed off for pathologic evaluation. A small portion of the mass was placed in RPMI solution as it had findings more consistent with lymphoid tissue as opposed to lipoma. The fascia was reapproximated with interrupted Vicryl. Electrocautery was utilized to achieve hemostasis and skin was then closed with interrupted 4-0 nylon. Dressings were applied and the patient was transferred recovery in stable condition after removal of her laryngeal mask airway. Condition: stable Disposition: PACU Specimens:: Intramuscular right deltoid mass Complications:: No immediate
[2019-09-20 07:50] LABS: POC Glucose,Bedside 159 (70-110)
--- NOTE | 2019-09-20 07:50 | PC.NURSE ---
0736-oral airway removed by ENDY Phillip upon arrival to pacu-o2 @ 3l/nc in place, sats stable
--- NOTE | 2019-09-20 07:53 | PC.NURSE ---
0742-checked fsbs with results of 159-notified APPELLATE COURT JUDGE-no further orders
--- NOTE | 2019-09-20 08:18 | PC.NURSE ---
0802-detailed report called to MARNI Flower 0805-pt transported to post op via stretcher with araceli rails up and left in care of MARNI lFower with bed locked in lowest position, vss, pt stable
--- NOTE | 2019-09-20 08:50 | HMH.ANESII ---
[facility] Anesthesia Record Part II Discharge Time: 08:05 Destination: Surgical Day Care (OP Surgery) PACU nurse assessment reviewed?: Yes Patient Condition:: Good Anesthesia Complications:: None Swallowing reflex intact?: Yes Cyanosis?: No Blood Pressure: 127/73 Pulse Rate: 82 Temperature: 97.8 F Mental Status: Alert & Oriented Pain level:: 0 Nausea and/or vomitting:: None Intake, IV Amount: 0
== END 2019-09-20 08:40 | disposition home or self-care (01) ==
LOC: OR 06:11
PROVIDERS: PCP Internal Medicine Adolescent Medicine; Visit Provider Surgery
PROC: (CPT 23073; principal; 2019-09-20 07:30)
DX: D36.0 Benign neoplasm of lymph nodes; Z79.899 Other long term (current) drug therapy; Z79.84 Long term (current) use of oral hypoglycemic drugs; J44.9 Chronic obstructive pulmonary disease, unspecified; F41.9 Anxiety disorder, unspecified; I10 Essential (primary) hypertension; E78.5 Hyperlipidemia, unspecified; Z85.9 Personal history of malignant neoplasm, unspecified; Z72.0 Tobacco use; Z82.49 Family history of ischemic heart disease and other diseases of the circulatory system
CPT/HCPCS: 23073; 82962; 96374; J2405

== ENCOUNTER 2019-09-26 18:19 | Emergency (ER) | payer OTHER, SELFPAY ==
[2019-09-26 18:20] VITALS: BP 132/91; PULSE 87; RESP 18; TEMP 36.8; O2SAT 98; BMI 45.3
--- NOTE | 2019-09-26 18:37 | XR_ITS ---
PROCEDURE: XR FOOT RT 2V CLINICAL INDICATION: PAIN/SWELLING The COMPARISON: XR FOOT LT MIN 3V from 02/28/2019 XR FOOT LT MIN 3V from 07/08/2019 FINDINGS: No fracture or dislocation. No lytic or blastic change. There is normal mineralization. The joint spaces are well-preserved. No significant degenerative/arthritic changes. No erosive changes evident. Other findings:None. IMPRESSION: No acute findings. Dictated by: Nuno Pisano MD 09/27/2019 07:29 Electronically signed by Nuno Pisano MD in [place] 09/27/2019 07:29
--- NOTE | 2019-09-26 19:14 | HMH.EDEXTP ---
ED Disposition Clinical Impression: Cellulitis Disposition: Home Health Service Condition on Discharge: Good Instructions: Cellulitis Prescriptions: Sulfamethoxazole/Trimethoprim [Bactrim DS tablet] 1 each PO BID 10 Days #20 tab Transmission Status: Pending to [facility] Nabumetone 750 mg PO BID 10 Days #20 tab Transmission Status: Pending to [facility] Referrals: Aniket Martínez MD [Primary Care Provider] - - Critical Care Critical Care Time: No Attestation: On 09/26/19, the high probability of a clinically significant, sudden or life threatening deterioration of the following system(s) required my full and direct attention, intervention and personal management. The time I documented below is in addition to time spent performing reported procedures but includes the following listed in this critical care notation. Medical Decision Making - Medical Records Medical records reviewed: Yes: I reviewed the patient's medical records. - Karsten Inquiry Pt receiving controlled substance: No Vital Signs: 09/26/19 18:20 Temperature 98.3 F Temperature Source Oral Pulse Rate [Left Radial] 87 Respiratory Rate 18 Blood Pressure [Left Arm] 132/91 H Blood Pressure Mean [Left Arm] 104 Blood Pressure Source [Left Arm] Automatic Cuff Blood Pressure Position [Left Arm] Sitting 02 Sat by Pulse Oximetry 98 Oxygen Delivery Method Room Air - Lab Data Lab results reviewed: Yes: I reviewed the patient's lab results. Orders (Tests/Meds): ORDERS Category Date Time Status Foot XR right 2 views [XR foot RT 2V] Stat Exams 09/26/19 18:37 Taken - Radiology Data #1 Image(s): Foot/Toes Preliminary Findings: Normal/NAD Extremity Problem HPI - General Chief complaint: Extremity Injury, Lower Stated complaint: R Leg pain,burning,swollen,red Time Seen by Provider: 09/26/19 19:00 Mode of Arrival: Wheelchair Source of Information: Patient Limitations: No Limitations Description of Symptoms (Recalled from ER Triage Doc. by RN): PT C/O PAIN AND SWELLING IN THE RT FOOT THAT SHOOTS UP HER LEG WITH PRESSURE UPON STANDING - History of Present Illness HPI Narrative: Patient comes in with a 3-day history of right foot pain with no injury. Patient states that she has difficulty ambulating on the foot and swollen and also has some redness on the top of her foot. Patient denies any recent fever shakes or chills. Patient denies any sort of infectious process. Patient does state the pain is 7 out of 10 and sharp. Alleviating factors include rest and exacerbating factors include ambulation. - Related Data Home Medications Medication Instructions Recorded Confirmed canagliflozin 100 mg tablet 100 mg PO QAM 08/14/17 09/25/19 cetirizine 10 mg tablet 10 mg PO DAILY tab 08/14/17 09/25/19 fluticasone furoate 200 1 inh INHALATION Q24H 08/14/17 09/25/19 mcg-vilanterol 25 mcg/dose inhalation powder Losartan Potassium [Cozaar 100mg 100 mg PO ONCE 12/07/17 09/25/19 Tablets] Omeprazole [Omeprazole 40mg 40 mg PO DAILY 12/07/17 09/25/19 Capsule] metformin 500 mg tablet 1,000 mg PO BID tab 12/26/17 09/25/19 escitalopram oxalate 10 mg tablet 10 mg PO DAILY 30 Days #30 tab 06/05/18 09/25/19 venlafaxine 37.5 mg 1 tab PO DAILY 30 Days #30 cap 06/05/18 09/25/19 capsule,extended release 24 hr Previous Rx's Medication Instructions Recorded spironolactone 50 mg tablet 50 mg PO QAM #30 tab 04/06/18 carvedilol 6.25 mg tablet 6.25 mg PO BID #180 tab 08/20/18 furosemide 80 mg tablet 80 mg PO DAILY #90 tab 08/20/18 atorvastatin 20 mg tablet 20 mg PO DAILY #30 tab 10/29/18 Nabumetone 750 mg PO BID 10 Days #20 tab 09/26/19 Sulfamethoxazole/Trimethoprim 1 each PO BID 10 Days #20 tab 09/26/19 [Bactrim DS tablet] Allergies Allergy/AdvReac Type Severity Reaction Status Date / Time No Known Allergies Allergy Verified 09/25/19 14:21 [facility] History - Hepatitis A Screen Drug use history
[2019-09-26 19:26] VITALS: BP 132/91; PULSE 87; RESP 18; TEMP 36.8; O2SAT 98
== END 2019-09-26 19:27 | disposition home health service (06) ==
PROVIDERS: Emergency Provider Family Medicine; PCP Internal Medicine Adolescent Medicine
DX: L03.115 Cellulitis of right lower limb (principal); E11.9 Type 2 diabetes mellitus without complications; J44.9 Chronic obstructive pulmonary disease, unspecified; F41.8 Other specified anxiety disorders; I10 Essential (primary) hypertension; K21.9 Gastro-esophageal reflux disease without esophagitis; E78.5 Hyperlipidemia, unspecified; Z90.49 Acquired absence of other specified parts of digestive tract; Z79.84 Long term (current) use of oral hypoglycemic drugs; Z79.899 Other long term (current) drug therapy; F17.210 Nicotine dependence, cigarettes, uncomplicated
CPT/HCPCS: 73620; 99282

== ENCOUNTER → 2019-10-31 10:31 | Outpatient (CLI) | payer OTHER, SELFPAY ==
[2019-11-01 14:43] LABS: Covid-19 Nasal PCR Sendout Lex Not Detected
== END ==
DX: Z01.818 Encounter for other preprocedural examination (principal)
CPT/HCPCS: U0004

== ENCOUNTER → 2020-04-22 18:14 | Outpatient (CLI) | payer OTHER, SELFPAY ==
[2020-04-22 19:07] LABS: Basophils # 0.1 K/mm3 (0-0.2); Basophils % 1.1 % (0.1-2.0); Eosinophils # 0.1 K/mm3 (0.0-0.4); Hematocrit 51.3 % (37.0-47.0); Hemoglobin 16.5 g/dL (12.2-16.2); Lymphocytes # 4.4 K/mm3 (0.7-4.5); Lymphocytes % 34.7 % (10-50); Mean Corpuscular HGB Conc 32.2 g/dL (31.8-35.4); Mean Corpuscular Hemoglobin 29.1 pg (27.0-31.2); Mean Corpuscular Volume 90.3 fl (81-99); Mean Platelet Volume 9.1 fl (7.4-10.4); Monocytes # 0.8 K/mm3 (0.1-1.0); Monocytes % 6.4 % (1.7-9.3); Neutrophils # 7.1 K/mm3 (1.8-7.8); Neutrophils % 56.9 % (37.0-80.0); Platelet Count 360 K/mm3 (142-424); Red Blood Count 5.68 M/mm3 (4.20-5.40); Red Cell Distribution Width 15.5 % (11.5-17.5); White Blood Count 12.5 K/mm3 (4.8-10.8)
[2020-04-22 19:11] LABS: Alanine Aminotransferase 24 U/L (12-78); Albumin Level 4.9 g/dl (3.5-5.0); Albumin/Globulin Ratio 1.6 (1.1-1.8); Alkaline Phosphatase 117 U/L (38-126); Anion Gap 16.7 mEq/L (5-15); Aspartate Amino Transferase 25 U/L (14-36); Bilirubin,Total 0.6 mg/dl (0.2-1.3); Blood Urea Nitrogen 18 mg/dl (7-17); Calcium 10.6 mg/dl (8.4-10.2); Carbon Dioxide 30 mmol/L (22.0-30.0); Chloride 94 mmol/L (98-107); Chol/HDL Ratio 7.1 (1-3.5); Cholesterol 242 mg/dl (140-200); Estimated Glomerular Filt Rate 46 ml/min (>60); GFR (African American) 56 ML/MIN (>60); Globulin 3.1 g/dL (1.3-3.2); Glucose 174 mg/dl (74-100); HDL Cholesterol 34 mg/dl (40-60); Potassium 4.7 mmoL/L (3.5-5.1); Sodium 136 mmol/L (136-145); Triglycerides 393 mg/dl (30-150); VLDL Cholesterol 79 mg/dL (0-40)
[2020-04-22 19:22] LABS: Direct LDL Cholesterol 152.01 mg/dL (100-129)
[2020-04-22 19:31] LABS: 25-OH Vitamin D, Total 20.1 ng/mL (30-100)
[2020-04-22 19:31] LABS: Hemoglobin A1C 7.1 % (4.0-6.0)
[2020-04-22 19:34] LABS: Free T4 (Free Thyroxine) 0.91 ng/dl (0.78-2.19)
[2020-04-22 19:43] LABS: Thyroid Stimulating Hormone 1.78 uIU/mL (0.465-4.68)
== END ==
PROVIDERS: Visit Provider Emergency Medicine
DX: E11.9 Type 2 diabetes mellitus without complications (principal); E55.9 Vitamin D deficiency, unspecified; Z79.84 Long term (current) use of oral hypoglycemic drugs
CPT/HCPCS: 80053; 80061; 82306; 83036; 84439; 84443; 85025

== ENCOUNTER 2020-06-21 13:55 | Emergency (ER) | payer OTHER, SELFPAY ==
[2020-06-21 13:57] VITALS: BP 110/77; PULSE 74; RESP 18; TEMP 36.9; O2SAT 97; BMI 44.8
--- NOTE | 2020-06-21 14:26 | HMH.EDGENADL ---
ED Disposition Clinical Impression: Tendinitis of left foot Disposition: Home, Self-Care Condition on Discharge: Good Instructions: DI for Foot Pain Additional Instructions: Use orthopedic boot. Ibuprofen as prescribed. Ice and elevation to reduce any swelling. Follow-up with Dr. Christianson as scheduled. Prescriptions: Ibuprofen [Ibuprofen 800mg Tablet] 800 mg PO Q8HP PRN #15 tab PRN Reason: Moderate Pain Transmission Status: Received by [facility] Referrals: Wisam Foster MD [Primary Care Provider] - - Critical Care Critical Care Time: No Attestation: On 06/21/20, the high probability of a clinically significant, sudden or life threatening deterioration of the following system(s) required my full and direct attention, intervention and personal management. The time I documented below is in addition to time spent performing reported procedures but includes the following listed in this critical care notation. Medical Decision Making - Karsten Inquiry Pt receiving controlled substance: No Vital Signs: 06/21/20 13:57 06/21/20 15:30 Temperature 98.4 F 98.4 F Temperature Source Oral Oral Pulse Rate 77 Pulse Rate [Left Radial] 74 Respiratory Rate 18 20 Blood Pressure 125/84 Blood Pressure [Left Arm] 110/77 Blood Pressure Mean [Left Arm] 88 Blood Pressure Source [Left Arm] Automatic Cuff Blood Pressure Position Sitting Blood Pressure Position [Left Arm] Sitting 02 Sat by Pulse Oximetry 97 Oxygen Delivery Method Room Air Room Air Orders (Tests/Meds): ED MEDICATIONS Discontinued Medications Generic Name Dose Route Start Last Admin Trade Name Freq PRN Reason Stop Dose Admin Ibuprofen 800 mg 06/21/20 15:09 06/21/20 15:17 Ibuprofen 400 Mg Tablet PO 06/21/20 15:10 800 mg ONCE ONE Administration ORDERS Category Date Time Status Foot XR left minimum 3 views [XR foot LT min 3V] Stat Exams 06/21/20 14:36 Taken - Radiology Data #1 Image(s): Foot/Toes Image Reviewed: Yes I reviewed the patient's radiology image Preliminary Findings: Normal/NAD General Adult HPI - General Chief complaint: PAIN Stated complaint: Sharp pain in left foot Time Seen by Provider: 06/21/20 14:27 Mode of Arrival: Wheelchair Limitations: No Limitations Description of Symptoms (Recalled from ER Triage Doc. by RN): Pt reports L foot pain that began lastnight. Pt reports when trying to bear weight or any touch to L foot sends sharp pains up into her ankle and leg area. Pt denies any injury. Pulses present with doppler. - History of Present Illness HPI narrative: Left foot pain that began yesterday afternoon. No injury, trauma, unusual activity. Locates the pain as being across her midfoot in the region of the metatarsals, more to the lateral aspect, most intense over the area of the fifth metatarsal. Pain increases when she dorsiflexes her foot and toes and when she tries to bear weight. No fever or redness. She says she had a similar thing a little over a year ago, saw her primary care doctor, that was Dr. Martínez at the time. She has an appointment to see Dr. Christianson, crystal machining coordinator, in a couple of weeks for what sounds like diabetic foot care. She has crutches and a walker at home. - Related Data Home Medications Medication Instructions Recorded Confirmed venlafaxine 37.5 mg 1 tab PO DAILY 30 Days #30 cap 06/05/18 06/15/20 capsule,extended release 24 hr buspirone 5 mg tablet 5 mg PO BID 04/22/20 06/15/20 Previous Rx's Medication Instructions Recorded spironolactone 50 mg tablet 50 mg PO QAM #30 tab 04/06/18 atorvastatin 40 mg tablet 40 mg PO HS #90 tab 04/23/20 cholecalciferol (vitamin D3) 25 25 mcg PO DAILY 90 Days #90 cap 04/23/20 mcg (1,000 unit) capsule ergocalciferol (vitamin D2) 1,250 1,250 mcg PO WEEKLY #18 cap 04/23/20 mcg (50,000 unit) capsule albuterol sulfate 90 mcg/actuation 2 puff INHALATION Q6H PRN #8.5 g 06/05/20 aerosol inhaler
--- NOTE | 2020-06-21 14:36 | XR_ITS ---
PROCEDURE: XR FOOT LT MIN 3V CLINICAL INDICATION: pain The COMPARISON: CR XR FOOT LT MIN 3V from 02/28/2019 CR XR FOOT LT MIN 3V from 07/08/2019 CR XR FOOT RT 2V from 09/26/2019 FINDINGS: No fracture or dislocation. No lytic or blastic change. There is normal mineralization. The joint spaces are well-preserved. No significant degenerative/arthritic changes. No erosive changes evident. Other findings:None. IMPRESSION: No acute findings. Dictated by: Nuno Pisano MD 06/22/2020 05:53 Nuno Pisano MD in [place] 06/22/2020 05:53
[2020-06-21 15:30] VITALS: BP 125/84; PULSE 77; RESP 20; TEMP 36.9; O2SAT 96
== END 2020-06-21 15:30 | disposition home or self-care (01) ==
PROVIDERS: Emergency Provider Emergency Medicine; PCP Emergency Medicine
DX: M77.52 Other enthesopathy of left foot and ankle (principal); I10 Essential (primary) hypertension; E11.9 Type 2 diabetes mellitus without complications; E78.5 Hyperlipidemia, unspecified; K21.9 Gastro-esophageal reflux disease without esophagitis; F41.8 Other specified anxiety disorders; F17.210 Nicotine dependence, cigarettes, uncomplicated
CPT/HCPCS: 29515; 73630; 99282

== ENCOUNTER → 2020-06-23 09:18 | Outpatient (CLI) | payer OTHER, SELFPAY ==
--- NOTE | 2020-06-23 09:18 | MM_ITS ---
PROCEDURE: MM DIG SCREENING MAMM BI W/CAD Digital Breast Tomosynthesis Included CLINICAL INDICATION: screening There is no personal or family history of breast cancer. COMPARISON: MG DMSB DIG MAMM-SCREEN TC from 10/03/2014 MG DMBAV DIG MAMM- TC ADD VIEWS from 10/17/2014 MG SCBI MM Dig screening mamm BI w/CAD from 10/25/2017 TECHNIQUE: Standard CC and MLO images and 3D Tomosynthesis was obtained. R2 CAD reviewed. FINDINGS: Moderate scattered fibroglandular densities are seen throughout both breasts. There are few benign-appearing microcalcifications in each breast. There is no suspicious lesion in either breast and no suspicious microcalcifications. IMPRESSION: Fibrofatty parenchyma of with no suspicious lesions seen BI-RAD Category: 2 Benign Finding(s) FOLLOW-UP: 1YR 1 Year Follow-up (A letter has been sent to the patient regarding results of the study.) Dictated by: Dr. Buddy Jorge MD 06/27/2020 08:55 Dr. Buddy Jorge MD in [place] 06/27/2020 08:55
== END ==
PROVIDERS: PCP Emergency Medicine; Visit Provider Emergency Medicine
DX: Z12.31 Encounter for screening mammogram for malignant neoplasm of breast (principal)
CPT/HCPCS: 77063; 77067

== ENCOUNTER → 2021-09-10 10:05 | Outpatient (CLI) | payer OTHER, SELFPAY ==
[2021-09-10 17:19] LABS: Basophils # 0.2 K/mm3 (0-0.2); Basophils % 1.8 % (0.1-2.0); Eosinophils # 0.2 K/mm3 (0.0-0.4); Eosinophils % 1.6 % (0.1-12.0); Hematocrit 42.6 % (37.0-47.0); Hemoglobin 13.9 g/dL (12.2-16.2); Lymphocytes % 39.8 % (10-50); Mean Corpuscular HGB Conc 32.6 g/dL (31.8-35.4); Mean Corpuscular Hemoglobin 29.1 pg (27.0-31.2); Mean Corpuscular Volume 89.1 fl (81-99); Mean Platelet Volume 8.9 fl (7.4-10.4); Monocytes # 0.5 K/mm3 (0.1-1.0); Monocytes % 5.1 % (1.7-9.3); Neutrophils # 5.2 K/mm3 (1.8-7.8); Neutrophils % 51.7 % (37.0-80.0); Platelet Count 339 K/mm3 (142-424); Red Blood Count 4.78 M/mm3 (4.20-5.40); Red Cell Distribution Width 15.4 % (11.5-17.5); White Blood Count 10.1 K/mm3 (4.8-10.8)
[2021-09-10 17:35] LABS: Alanine Aminotransferase 37 U/L (12-78); Albumin Level 4.4 g/dl (3.5-5.0); Albumin/Globulin Ratio 1.7 (1.1-1.8); Alkaline Phosphatase 89 U/L (38-126); Anion Gap 17.9 mEq/L (5-15); Aspartate Amino Transferase 38 U/L (14-36); Blood Urea Nitrogen 20 mg/dl (7-17); Calcium 10.1 mg/dl (8.4-10.2); Carbon Dioxide 25 mmol/L (22.0-30.0); Chloride 95 mmol/L (98-107); Chol/HDL Ratio 5.7 (1-3.5); Cholesterol 195 mg/dl (140-200); Estimated Glomerular Filt Rate 64 ml/min (>60); GFR (African American) 78 ML/MIN (>60); Globulin 2.6 g/dL (1.3-3.2); Glucose 208 mg/dl (74-100); HDL Cholesterol 34 mg/dl (40-60); Potassium 3.9 mmoL/L (3.5-5.1); Sodium 134 mmol/L (136-145)
[2021-09-10 17:43] LABS: Bilirubin,Total < 0.1 mg/dl (0.2-1.3); Triglycerides 485 mg/dl (30-150)
[2021-09-10 17:47] LABS: Direct LDL Cholesterol 91.68 mg/dL (100-129)
[2021-09-10 17:53] LABS: 25-OH Vitamin D, Total 28.3 ng/mL (30-100)
[2021-09-10 18:06] LABS: Thyroid Stimulating Hormone 3.34 uIU/mL (0.465-4.68)
[2021-09-10 18:12] LABS: Hemoglobin A1C 8.2 % (4.0-6.0)
== END ==
PROVIDERS: PCP Emergency Medicine; Visit Provider Emergency Medicine
DX: R53.83 Other fatigue (principal); E11.9 Type 2 diabetes mellitus without complications; I10 Essential (primary) hypertension; E55.9 Vitamin D deficiency, unspecified; E66.9 Obesity, unspecified; Z68.41 Body mass index [BMI] 40.0-44.9, adult; Z79.84 Long term (current) use of oral hypoglycemic drugs
CPT/HCPCS: 80053; 80061; 82306; 83036; 84443; 85025

== ENCOUNTER → 2021-12-20 16:59 | Outpatient (CLI) | payer OTHER, SELFPAY ==
[2021-12-20 21:33] LABS: Vitamin B12 388 pg/mL (239-931)
== END ==
PROVIDERS: PCP Internal Medicine Adolescent Medicine; Visit Provider Specialist
DX: R53.83 Other fatigue (principal)
CPT/HCPCS: 36415; 82607

== ENCOUNTER → 2021-12-22 15:38 | Outpatient (CLI) | payer OTHER, SELFPAY | PROVIDERS: PCP Internal Medicine Adolescent Medicine; Visit Provider Specialist | DX: G47.33 Obstructive sleep apnea (adult) (pediatric) (principal); G47.34 Idiopathic sleep related nonobstructive alveolar hypoventilation | CPT/HCPCS: 94762 ==

== ENCOUNTER 2022-03-11 11:13 | Emergency (ER) | payer OTHER, SELFPAY ==
[2022-03-11] VITALS (8 sets, daily range): BP systolic 81–122; BP diastolic 57–79; PULSE 60–84; RESP 16–20; TEMP 36.8–36.9; O2SAT 95–98; BMI 45.7
--- NOTE | 2022-03-11 11:13 | ECG_ITS ---
APPROVED REPORT Exam: Resting ECG HR:69 bpm ECG Measurements Heart Rate 69 AXES ME 180 P 64 QRSd 92 QRS 5 QT 379 T 68 QTc 398 Conclusion SINUS RHYTHM LOW QRS VOLTAGE IN PRECORDIAL LEADS [QRS DEFLECTION < 1.0 mV IN CHEST LEADS] BORDERLINE ECG UNCONFIRMED REPORT Electronically signed by : Aniket Martínez MD 03/12/2022 12:14:32
--- NOTE | 2022-03-11 11:25 | HMH.EDGENADL ---
Discharge Plan Disposition Patient Disposition: Home, Self-Care Condition: Good Prescriptions Prescriptions: New benzonatate 100 mg capsule 100 mg PO TID PRN (Reason: Cough) Qty: 10 0RF azithromycin [Zithromax Z-Reese] 250 mg tablet See Rx Instructions PO .COMPLEX Qty: 6 0RF Rx Instructions: For 250 mg dose pack: take 500 mg today (day 1), then 250 mg for 4 days (days 2-5) No Action nicotine 21 mg/24 hr patch 24 hour 1 patch TD DAILY Qty: 28 0RF acetaminophen-codeine 300-30 mg tablet 1 tab PO BID albuterol sulfate [ProAir HFA] 90 mcg/actuation HFA aerosol inhaler 2 puff inhalation PRN furosemide 80 mg tablet 80 mg PO DAILY PRN (Reason: Fluid) cholecalciferol (vitamin D3) 25 mcg (1,000 unit) capsule 25 mcg PO DAILY 90 Days Qty: 90 2RF cetirizine [Zyrtec] 10 mg tablet 10 mg PO DAILY Qty: 90 2RF spironolactone [Aldactone] 50 mg tablet 50 mg PO QAM Qty: 30 5RF Dulera 100-5 mcg/actuation HFA aerosol inhaler 2 puff INHALATION BID Qty: 13 2RF aspirin 81 mg tablet,delayed release (DR/EC) See Rx Instructions .ROUTE .COMPLEX Qty: 90 0RF Dose Instruction: TAKE ONE TABLET BY MOUTH EVERY DAY Rx Instructions: TAKE ONE TABLET BY MOUTH EVERY DAY atorvastatin 40 mg tablet 40 mg PO HS Qty: 90 3RF ergocalciferol (vitamin D2) [Vitamin D2] 1,250 mcg (50,000 unit) capsule See Rx Instructions .ROUTE .COMPLEX Qty: 18 1RF Dose Instruction: TAKE 1 CAPSULE BY MOUTH ONCE WEEKLY Rx Instructions: TAKE 1 CAPSULE BY MOUTH ONCE WEEKLY carvedilol 6.25 mg tablet See Rx Instructions .ROUTE .COMPLEX Qty: 180 2RF Dose Instruction: TAKE ONE TABLET BY MOUTH TWICE A DAY FOR BLOOD PRESSURE Rx Instructions: TAKE ONE TABLET BY MOUTH TWICE A DAY FOR BLOOD PRESSURE fluoxetine 20 mg capsule See Rx Instructions .ROUTE .COMPLEX Qty: 30 2RF Dose Instruction: TAKE 1 CAPSULE BY MOUTH ONCE DAILY Rx Instructions: TAKE 1 CAPSULE BY MOUTH ONCE DAILY trazodone 50 mg tablet See Rx Instructions .ROUTE .COMPLEX Qty: 90 0RF Dose Instruction: TAKE ONE TABLET BY MOUTH EVERY DAY (USUALLY AT BEDTIME) Rx Instructions: TAKE ONE TABLET BY MOUTH EVERY DAY (USUALLY AT BEDTIME) losartan 100 mg tablet See Rx Instructions .ROUTE .COMPLEX Qty: 90 3RF Dose Instruction: TAKE ONE TABLET BY MOUTH EVERY DAY FOR BLOOD PRESSURE Rx Instructions: TAKE ONE TABLET BY MOUTH EVERY DAY FOR BLOOD PRESSURE omeprazole 40 mg capsule,delayed release(DR/EC) See Rx Instructions .ROUTE .COMPLEX Qty: 90 3RF Dose Instruction: TAKE 1 CAPSULE BY MOUTH EVERY DAY FOR STOMACH Rx Instructions: TAKE 1 CAPSULE BY MOUTH EVERY DAY FOR STOMACH metformin 500 mg tablet See Rx Instructions .ROUTE .COMPLEX Qty: 360 3RF Dose Instruction: TAKE 2 TABLETS BY MOUTH TWICE A DAY FOR DIABETES Rx Instructions: TAKE 2 TABLETS BY MOUTH TWICE A DAY FOR DIABETES glipizide 10 mg tablet extended release 24hr 10 mg PO DAILY Qty: 90 3RF Referrals Follow up/Referrals: Aniket Martínez MD [Primary Care Provider] - See instructions Activity Restrictions/Add. Instructions Additional Instructions/Restrictions: Zithromax and Tessalon pearls as prescribed. Additional instructions for ACUTE BRONCHITIS: Use Tylenol or Ibuprofen for pain or fever. Rest and plenty of fluids. Return immediately if you have an uncontrollable fever greater than 102 degrees, severe headache or neck stiffness, difficulty breathing or shortness of breath, persistent vomiting, severe sore throat or inability to swallow. See your physician if not improving in 4-5 days. Clinical Impressions Clinical Impression: Acute bronchitis Instructions Patient Instructions: DI for Acute Bronchitis, DI for Atypical Chest Pain Discharge ED Provider: Ricardo Jessica General Adult HPI General Chief complaint: Chest Pain Stated complaint: chest pain
--- NOTE | 2022-03-11 11:28 | XR_ITS ---
FINAL REPORT CLINICAL HISTORY: chest pain, coughing FINDINGS: TWO-VIEW CHEST There is mild cardiomegaly. The mediastinum is normal. There are mild chronic changes in both lungs. There is no pneumothorax. IMPRESSION: No acute cardiopulmonary process. Reviewed, Interpreted and Dictated by David Kolb MD Transcribed by Vidhi Reynolds Authenticated and [facility]
[2022-03-11 11:42] LABS: Chloride 93 mmol/L (98-107); Potassium 3.5 mmoL/L (3.5-5.1); Sodium 132 mmol/L (136-145)
[2022-03-11 11:45] LABS: Blood Urea Nitrogen 26 mg/dl (7-17); Creatinine Clearance Estimated 34 mL/min (50-200); Estimated Glomerular Filt Rate 38 ml/min (>60); GFR (African American) 46 ML/MIN (>60)
[2022-03-11 11:46] LABS: Anion Gap 12.5 mEq/L (5-15); Calcium 9.9 mg/dl (8.4-10.2); Carbon Dioxide 30 mmol/L (22.0-30.0); Glucose 195 mg/dl (74-100)
[2022-03-11 11:50] LABS: Basophils # 0.2 K/mm3 (0-0.2); Basophils % 1.5 % (0.1-2.0); Eosinophils # 0.1 K/mm3 (0.0-0.4); Eosinophils % 0.7 % (0.1-12.0); Hematocrit 43.3 % (37.0-47.0); Hemoglobin 14.1 g/dL (12.2-16.2); Lymphocytes # 3.4 K/mm3 (0.7-4.5); Lymphocytes % 29.3 % (10-50); Mean Corpuscular HGB Conc 32.6 g/dL (31.8-35.4); Mean Corpuscular Hemoglobin 28.2 pg (27.0-31.2); Mean Corpuscular Volume 86.8 fl (81-99); Mean Platelet Volume 8.9 fl (7.4-10.4); Monocytes # 0.9 K/mm3 (0.1-1.0); Monocytes % 7.6 % (1.7-9.3); Neutrophils % 60.8 % (37.0-80.0); Platelet Count 282 K/mm3 (142-424); Red Blood Count 4.99 M/mm3 (4.20-5.40); Red Cell Distribution Width 15.3 % (11.5-17.5); White Blood Count 11.4 K/mm3 (4.8-10.8)
[2022-03-11 12:33] LABS: Coronavirus 19, PCR Not Detected (NotDetected); Influenza A, PCR Not Detected (NotDetected); Influenza B, PCR Not Detected (NotDetected)
--- NOTE | 2022-03-11 13:19 | PC.NURSE ---
Rounded on pt at this time. Resting in bed, Pt updated on POC and drink provided at this time. PT had no other needs
[2022-03-11 13:23] LABS: Troponin I < 0.01 ng/ml (0.00-0.034)
== END 2022-03-11 14:35 | disposition home or self-care (01) ==
PROVIDERS: Emergency Provider Emergency Medicine; PCP Internal Medicine Adolescent Medicine
DX: J20.9 Acute bronchitis, unspecified (principal); Z79.899 Other long term (current) drug therapy; I10 Essential (primary) hypertension; E78.5 Hyperlipidemia, unspecified; G47.33 Obstructive sleep apnea (adult) (pediatric); J44.9 Chronic obstructive pulmonary disease, unspecified; Z85.828 Personal history of other malignant neoplasm of skin
CPT/HCPCS: 71046; 80048; 84484; 85025; 93005; 99283; C9803; U0003; U0005

== ENCOUNTER 2022-04-14 14:37 | Emergency (ER) | payer OTHER, SELFPAY ==
--- NOTE | 2022-04-14 14:37 | ECG_ITS ---
APPROVED REPORT Exam: Resting ECG HR:82 bpm ECG Measurements Heart Rate 82 AXES AR 177 P 60 QRSd 95 QRS -23 QT 365 T 66 QTc 404 Conclusion SINUS RHYTHM BORDERLINE LEFT AXIS DEVIATION [QRS AXIS < -20] BORDERLINE ECG UNCONFIRMED REPORT Electronically signed by : Aniket Martínez MD 04/15/2022 21:16:26
--- NOTE | 2022-04-14 14:42 | XR_ITS ---
FINAL REPORT CLINICAL HISTORY: chest pain COMPARISON: 03/11/2022 FINDINGS: Two views of the chest show scattered small calcified granulomas. Pulmonary vascularity is normal. Heart and mediastinum are unremarkable. No pleural effusion is present. IMPRESSION: No active disease. Reviewed, Interpreted and Dictated by Adrián Fuentes MD Transcribed by Cordelia Yan Authenticated and [facility]
--- NOTE | 2022-04-14 14:43 | HMH.EDGENADL ---
Discharge Plan Disposition Patient Disposition: Home, Self-Care Condition: Good Chief Complaint: Chest Pain Prescriptions Prescriptions: No Action nicotine 21 mg/24 hr patch 24 hour 1 patch TD DAILY Qty: 28 0RF acetaminophen-codeine 300-30 mg tablet 1 tab PO BID albuterol sulfate [ProAir HFA] 90 mcg/actuation HFA aerosol inhaler 2 puff inhalation PRN furosemide 80 mg tablet 80 mg PO DAILY PRN (Reason: Fluid) cholecalciferol (vitamin D3) 25 mcg (1,000 unit) capsule 25 mcg PO DAILY 90 Days Qty: 90 2RF cetirizine [Zyrtec] 10 mg tablet 10 mg PO DAILY Qty: 90 2RF spironolactone [Aldactone] 50 mg tablet 50 mg PO QAM Qty: 30 5RF Dulera 100-5 mcg/actuation HFA aerosol inhaler 2 puff INHALATION BID Qty: 13 2RF atorvastatin 40 mg tablet 40 mg PO HS Qty: 90 3RF carvedilol 6.25 mg tablet See Rx Instructions .ROUTE .COMPLEX Qty: 180 2RF Dose Instruction: TAKE ONE TABLET BY MOUTH TWICE A DAY FOR BLOOD PRESSURE Rx Instructions: TAKE ONE TABLET BY MOUTH TWICE A DAY FOR BLOOD PRESSURE fluoxetine 20 mg capsule See Rx Instructions .ROUTE .COMPLEX Qty: 30 2RF Dose Instruction: TAKE 1 CAPSULE BY MOUTH ONCE DAILY Rx Instructions: TAKE 1 CAPSULE BY MOUTH ONCE DAILY losartan 100 mg tablet See Rx Instructions .ROUTE .COMPLEX Qty: 90 3RF Dose Instruction: TAKE ONE TABLET BY MOUTH EVERY DAY FOR BLOOD PRESSURE Rx Instructions: TAKE ONE TABLET BY MOUTH EVERY DAY FOR BLOOD PRESSURE omeprazole 40 mg capsule,delayed release(DR/EC) See Rx Instructions .ROUTE .COMPLEX Qty: 90 3RF Dose Instruction: TAKE 1 CAPSULE BY MOUTH EVERY DAY FOR STOMACH Rx Instructions: TAKE 1 CAPSULE BY MOUTH EVERY DAY FOR STOMACH metformin 500 mg tablet See Rx Instructions .ROUTE .COMPLEX Qty: 360 3RF Dose Instruction: TAKE 2 TABLETS BY MOUTH TWICE A DAY FOR DIABETES Rx Instructions: TAKE 2 TABLETS BY MOUTH TWICE A DAY FOR DIABETES glipizide 10 mg tablet extended release 24hr 10 mg PO DAILY Qty: 90 3RF aspirin 81 mg tablet,delayed release (DR/EC) See Rx Instructions .ROUTE .COMPLEX Qty: 90 0RF Dose Instruction: TAKE ONE TABLET BY MOUTH EVERY DAY Rx Instructions: TAKE ONE TABLET BY MOUTH EVERY DAY trazodone 50 mg tablet See Rx Instructions .ROUTE .COMPLEX Qty: 90 0RF Dose Instruction: TAKE ONE TABLET BY MOUTH EVERY DAY (USUALLY AT BEDTIME) Rx Instructions: TAKE ONE TABLET BY MOUTH EVERY DAY (USUALLY AT BEDTIME) ergocalciferol (vitamin D2) [Vitamin D2] 1,250 mcg (50,000 unit) capsule See Rx Instructions .ROUTE .COMPLEX Qty: 18 0RF Dose Instruction: TAKE 1 CAPSULE BY MOUTH ONCE WEEKLY Rx Instructions: TAKE 1 CAPSULE BY MOUTH ONCE WEEKLY benzonatate 100 mg capsule 100 mg PO TID PRN (Reason: Cough) Qty: 10 0RF azithromycin [Zithromax Z-Reese] 250 mg tablet See Rx Instructions PO .COMPLEX Qty: 6 0RF Rx Instructions: For 250 mg dose pack: take 500 mg today (day 1), then 250 mg for 4 days (days 2-5) Referrals Follow up/Referrals: Aniket Martínez MD [Primary Care Provider] - See instructions Clinical Impressions Clinical Impression: Chest pain Instructions Patient Instructions: DI for Chest Pain Discharge ED Provider: Modesto Oneal General Adult HPI General Chief complaint: Chest Pain Stated complaint: chest pain Time Seen by Provider: 04/14/22 14:42 Mode of Arrival: Ambulatory History of Present Illness HPI narrative: 62-year-old female, past medical history of hypertension, hyperlipidemia, COPD, type 2 diabetes, morbid obesity, tobacco dependence. Review of records shows last echocardiogram was here in 2018. She does states she had a stress test a few years ago. She presents to the emergency department today with chief complaint of central chest discomfort. She describes it as a small chest pain. She states she was at home, took her b
[2022-04-14 14:44] VITALS: BP 138/72; PULSE 83; RESP 16; TEMP 36.9; O2SAT 98; BMI 45.7
--- NOTE | 2022-04-14 14:50 | PC.NURSE ---
SRIKANTH WILSON at for pt eusebioal
[2022-04-14 14:53] LABS: Basophils # 0.1 K/mm3 (0-0.2); Basophils % 1.2 % (0.1-2.0); Eosinophils # 0.1 K/mm3 (0.0-0.4); Eosinophils % 1.3 % (0.1-12.0); Hematocrit 39.9 % (37.0-47.0); Hemoglobin 13.2 g/dL (12.2-16.2); Lymphocytes # 3.1 K/mm3 (0.7-4.5); Lymphocytes % 39.2 % (10-50); Mean Corpuscular Hemoglobin 28.9 pg (27.0-31.2); Mean Corpuscular Volume 87.4 fl (81-99); Mean Platelet Volume 9.1 fl (7.4-10.4); Monocytes # 0.4 K/mm3 (0.1-1.0); Monocytes % 5.6 % (1.7-9.3); Neutrophils # 4.1 K/mm3 (1.8-7.8); Neutrophils % 52.7 % (37.0-80.0); Platelet Count 274 K/mm3 (142-424); Red Blood Count 4.57 M/mm3 (4.20-5.40); Red Cell Distribution Width 15.3 % (11.5-17.5); White Blood Count 7.8 K/mm3 (4.8-10.8)
[2022-04-14 14:56] LABS: Chloride 98 mmol/L (98-107); Sodium 135 mmol/L (136-145)
[2022-04-14 14:57] LABS: Potassium 3.6 mmoL/L (3.5-5.1)
--- NOTE | 2022-04-14 14:57 | PC.NURSE ---
pt to radiology via WC with test technician
[2022-04-14 15:00] LABS: Anion Gap 12.6 mEq/L (5-15); Blood Urea Nitrogen 20 mg/dl (7-17); Calcium 9.1 mg/dl (8.4-10.2); Carbon Dioxide 28 mmol/L (22.0-30.0); Creatinine Clearance Estimated 47 mL/min (50-200); Estimated Glomerular Filt Rate 57 ml/min (>60); GFR (African American) 68 ML/MIN (>60); Glucose 381 mg/dl (74-100)
--- NOTE | 2022-04-14 15:02 | PC.NURSE ---
pt returned from radiology via WC with nail technician teacher
[2022-04-14 15:22] LABS: Troponin I < 0.01 ng/ml (0.00-0.034)
[2022-04-14 15:31] VITALS: BP 142/88; PULSE 83; RESP 18; O2SAT 96
[2022-04-14 16:01] VITALS: BP 165/86; PULSE 69; RESP 15; O2SAT 96
[2022-04-14 16:38] VITALS: BP 168/78; PULSE 90; RESP 20; TEMP 36.8; O2SAT 97
== END 2022-04-14 16:41 | disposition home or self-care (01) ==
PROVIDERS: Emergency Provider Emergency Medicine; PCP Internal Medicine Adolescent Medicine
DX: R07.89 Other chest pain (principal); I10 Essential (primary) hypertension; E78.5 Hyperlipidemia, unspecified; J44.9 Chronic obstructive pulmonary disease, unspecified; E11.9 Type 2 diabetes mellitus without complications; F17.210 Nicotine dependence, cigarettes, uncomplicated; R01.1 Cardiac murmur, unspecified
CPT/HCPCS: 71046; 80048; 84484; 85025; 93005; 99285

== ENCOUNTER → 2022-07-27 14:16 | Outpatient (POV) | payer OTHER, SELFPAY | PROVIDERS: Visit Provider Specialist/Technologist | DX: Z00.00 Encounter for general adult medical examination without abnormal findings (principal) ==

== ENCOUNTER 2022-07-31 18:11 | Emergency (ER) | payer OTHER, SELFPAY ==
[2022-07-31 18:13] VITALS: BP 156/87; PULSE 79; RESP 20; TEMP 36.9; O2SAT 96; BMI 47.5
--- NOTE | 2022-07-31 18:19 | HMH.EDEAR ---
Discharge Plan Disposition Patient Disposition: Home, Self-Care Prescriptions Prescriptions: New triamcinolone acetonide 0.025 % cream 1 applic topical DAILY Qty: 15 0RF Rx Instructions: Apply to the affected areas once a day for 5 days. Wash your hands thoroughly after application. No Action acetaminophen-codeine 300-30 mg tablet 1 tab PO BID glipizide 10 mg tablet extended release 24hr 10 mg PO BID Qty: 180 2RF Ozempic 0.25 mg or 0.5 mg (2 mg/3 mL) pen injector 0.25 mg SQ WEEKLY Qty: 3 2RF Rx Instructions: 0.25mg weekly for 4weeks then 0.5mg weekly hydrocodone-acetaminophen 5-325 mg tablet 1 tab PO BID PRN (Reason: pain) Qty: 60 0RF metformin 500 mg tablet 500 mg PO fluticasone propionate [Flonase Allergy Relief] 50 mcg/actuation spray,suspension 2 spray intranasal BID Qty: 16 3RF Rx Instructions: administer into each nostril ipratropium bromide 21 mcg (0.03 %) spray,non-aerosol 2 spray intranasal BID Qty: 30 3RF Rx Instructions: administer into each nostril cetirizine [Zyrtec] 10 mg tablet 10 mg PO DAILY Qty: 90 2RF fluoxetine 20 mg capsule See Rx Instructions .ROUTE .COMPLEX Qty: 30 2RF Dose Instruction: TAKE 1 CAPSULE BY MOUTH ONCE DAILY Rx Instructions: TAKE 1 CAPSULE BY MOUTH ONCE DAILY losartan 100 mg tablet See Rx Instructions .ROUTE .COMPLEX Qty: 90 3RF Dose Instruction: TAKE ONE TABLET BY MOUTH EVERY DAY FOR BLOOD PRESSURE Rx Instructions: TAKE ONE TABLET BY MOUTH EVERY DAY FOR BLOOD PRESSURE omeprazole 40 mg capsule,delayed release(DR/EC) See Rx Instructions .ROUTE .COMPLEX Qty: 90 3RF Dose Instruction: TAKE 1 CAPSULE BY MOUTH EVERY DAY FOR STOMACH Rx Instructions: TAKE 1 CAPSULE BY MOUTH EVERY DAY FOR STOMACH ergocalciferol (vitamin D2) [Vitamin D2] 1,250 mcg (50,000 unit) capsule See Rx Instructions .ROUTE .COMPLEX Qty: 18 0RF Dose Instruction: TAKE 1 CAPSULE BY MOUTH ONCE WEEKLY Rx Instructions: TAKE 1 CAPSULE BY MOUTH ONCE WEEKLY carvedilol 6.25 mg tablet See Rx Instructions .ROUTE .COMPLEX Qty: 180 1RF Dose Instruction: TAKE ONE TABLET BY MOUTH TWICE A DAY FOR BLOOD PRESSURE Rx Instructions: TAKE ONE TABLET BY MOUTH TWICE A DAY FOR BLOOD PRESSURE atorvastatin 40 mg tablet See Rx Instructions .ROUTE .COMPLEX Qty: 90 2RF Dose Instruction: TAKE ONE TABLET BY MOUTH EVERY NIGHT AT BEDTIME Rx Instructions: TAKE ONE TABLET BY MOUTH EVERY NIGHT AT BEDTIME furosemide 80 mg tablet See Rx Instructions .ROUTE .COMPLEX Qty: 90 2RF Dose Instruction: TAKE ONE TABLET BY MOUTH EVERY DAY FOR FLUID Rx Instructions: TAKE ONE TABLET BY MOUTH EVERY DAY FOR FLUID trazodone 50 mg tablet See Rx Instructions .ROUTE .COMPLEX Qty: 90 0RF Dose Instruction: TAKE ONE TABLET BY MOUTH EVERY DAY (USUALLY AT BEDTIME) Rx Instructions: TAKE ONE TABLET BY MOUTH EVERY DAY (USUALLY AT BEDTIME) aspirin 81 mg tablet,delayed release (DR/EC) See Rx Instructions .ROUTE .COMPLEX Qty: 90 0RF Dose Instruction: TAKE ONE TABLET BY MOUTH EVERY DAY Rx Instructions: TAKE ONE TABLET BY MOUTH EVERY DAY (DME) OneTouch Ultra Test Strip See Rx Instructions .ROUTE .COMPLEX Qty: 100 0RF Dose Instruction: TEST THREE TIMES DAILY DIRECTED Rx Instructions: TEST THREE TIMES DAILY DIRECTED cholecalciferol (vitamin D3) 25 mcg (1,000 unit) tablet See Rx Instructions .ROUTE .COMPLEX Qty: 90 1RF Dose Instruction: TAKE ONE TABLET BY MOUTH EVERY DAY Rx Instructions: TAKE ONE TABLET BY MOUTH EVERY DAY nicotine 21 mg/24 hr patch 24 hour See Rx Instructions .ROUTE .COMPLEX Qty: 28 0RF Dose Instruction: APPLY 1 PATCH DAILY Rx Instructions: APPLY 1 PATCH DAILY Referrals Follow up/Referrals: Wisam Foster MD [Primary Care Provider] - See instructions Activ
[2022-07-31 18:32] VITALS: BP 150/72; PULSE 86; RESP 18; TEMP 36.9; O2SAT 95
== END 2022-07-31 18:34 | disposition home or self-care (01) ==
PROVIDERS: Emergency Provider Emergency Medicine; PCP Emergency Medicine
DX: L40.9 Psoriasis, unspecified (principal); F17.210 Nicotine dependence, cigarettes, uncomplicated; H91.90 Unspecified hearing loss, unspecified ear
CPT/HCPCS: 99283; 99284

== ENCOUNTER 2022-08-02 00:09 | Emergency (ER) | payer OTHER, SELFPAY ==
[2022-08-02 00:11] VITALS: BP 149/94; PULSE 84; RESP 16; TEMP 36.8; O2SAT 97; BMI 47.5
--- NOTE | 2022-08-02 00:26 | CT_ITS ---
PROCEDURE INFORMATION: Exam: CT Maxillofacial Without Contrast, Sinus Exam date and time: 08/02/2022 12:45 AM Age: 62 years old Clinical indication: Mass, lump, or swelling; Patient HX: States swelling behind right ear and right side of face; Additional info: Swelling to right side of face TECHNIQUE: Imaging protocol: CT Maxillofacial without contrast. Focus on the sinuses. Radiation optimization: All CT scans at this facility use at least one of these dose optimization techniques: automated exposure control; mA and/or kV adjustment per patient size (includes targeted exams where dose is matched to clinical indication); or iterative reconstruction. REPORTING DATA: Count of CT and Cardiac NM exams in prior 12 months: This patient has received 0 known CTs and 0 known cardiac nuclear medicine studies in the 12 months prior to the current study. COMPARISON: [facility] soft tissue head and neck 10/26/2017 1:15 PM FINDINGS: Frontal sinuses: Normal. No air-fluid levels. Ethmoid sinuses: Normal. No air-fluid levels. Sphenoid sinuses: Normal. No air-fluid levels. Maxillary sinuses: There is mild mucosal thickening. Nasal cavity: Unremarkable. Orbital cavities: Orbits are normal. Globes are unremarkable. Bones/joints: Unremarkable. Soft tissues: Unremarkable. IMPRESSION: Mild sinus disease.
[2022-08-02 00:30] VITALS: BP 141/80; PULSE 80; O2SAT 95
--- NOTE | 2022-08-02 00:32 | CT_ITS ---
PROCEDURE INFORMATION: Exam: CT Neck Without Contrast Exam date and time: 08/02/2022 12:47 AM Age: 62 years old Clinical indication: Enlarged lymph nodes and mass, lump, or swelling in neck; Patient HX: C/O swelling behind right ear and right side of face; Additional info: Swollen lymph node TECHNIQUE: Imaging protocol: Computed tomography of the neck without contrast. Radiation optimization: All CT scans at this facility use at least one of these dose optimization techniques: automated exposure control; mA and/or kV adjustment per patient size (includes targeted exams where dose is matched to clinical indication); or iterative reconstruction. REPORTING DATA: Count of CT and Cardiac NM exams in prior 12 months: This patient has received 0 known CTs and 0 known cardiac nuclear medicine studies in the 12 months prior to the current study. COMPARISON: CT SINUS WO CON 08/02/2022 12:45 AM FINDINGS: Pharynx: Unremarkable. No significant tonsillar enlargement. Larynx: Unremarkable. Epiglottis is normal. Prevertebral and retropharyngeal spaces: Unremarkable. Salivary glands: Normal. Glands are normal in size. Thyroid: Normal. No enlarged or calcified nodules. Lymph nodes: There is a right posterior auricular node measuring 1 cm x 5 mm. There is no deep cervical lymphadenopathy. Trachea: Visualized trachea is unremarkable. Lungs: Unremarkable as visualized. Bones/joints: Unremarkable. No acute fracture. Soft tissues: Unremarkable. No significant soft tissue swelling. IMPRESSION: No suspicious lesions or lymphadenopathy. Clinical scenario should determine the need for additional workup.
[2022-08-02 00:38] LABS: Basophils # 0.1 K/mm3 (0-0.2); Basophils % 0.7 % (0.1-2.0); Eosinophils # 0.2 K/mm3 (0.0-0.4); Eosinophils % 1.4 % (0.1-12.0); Hematocrit 41.9 % (37.0-47.0); Hemoglobin 13.7 g/dL (12.2-16.2); Lymphocytes # 3.8 K/mm3 (0.7-4.5); Lymphocytes % 35.5 % (10-50); Mean Corpuscular HGB Conc 32.7 g/dL (31.8-35.4); Mean Corpuscular Hemoglobin 29.2 pg (27.0-31.2); Mean Corpuscular Volume 89.2 fl (81-99); Mean Platelet Volume 8.5 fl (7.4-10.4); Monocytes # 0.7 K/mm3 (0.1-1.0); Monocytes % 6.2 % (1.7-9.3); Neutrophils # 6.1 K/mm3 (1.8-7.8); Neutrophils % 56.3 % (37.0-80.0); Platelet Count 320 K/mm3 (142-424); Red Blood Count 4.69 M/mm3 (4.20-5.40); Red Cell Distribution Width 15.5 % (11.5-17.5); White Blood Count 10.9 K/mm3 (4.8-10.8)
[2022-08-02 00:45] LABS: Anion Gap 12.7 mEq/L (5-15); Blood Urea Nitrogen 13 mg/dl (7-17); Calcium 9.2 mg/dl (8.4-10.2); Carbon Dioxide 29 mmol/L (22.0-30.0); Chloride 102 mmol/L (98-107); Creatinine Clearance Estimated 59 mL/min (50-200); Estimated Glomerular Filt Rate 73 ml/min (>60); GFR (African American) 89 ML/MIN (>60); Glucose 195 mg/dl (74-100); Potassium 3.7 mmoL/L (3.5-5.1); Sodium 140 mmol/L (136-145)
[2022-08-02 00:51] LABS: C-Reactive Protein 11.1 mg/L (0-4)
[2022-08-02 01:19] LABS: Erythrocyte Sedimentation Rate 22 mm/hr (0-30)
--- NOTE | 2022-08-02 02:18 | HMH.EDGENADL ---
Discharge Plan Disposition Patient Disposition: Home, Self-Care Prescriptions Prescriptions: New cephalexin [cephalexin] 500 mg capsule 500 mg PO TID Qty: 30 0RF clindamycin HCl 300 mg capsule 300 mg PO Q8H 10 Days Qty: 30 0RF No Action glipizide 10 mg tablet extended release 24hr 10 mg PO BID Qty: 180 2RF triamcinolone acetonide 0.025 % cream 1 applic topical DAILY Rx Instructions: Apply to the affected areas once a day for 5 days. Wash your hands thoroughly after application. atorvastatin 40 mg tablet See Rx Instructions .ROUTE .COMPLEX Rx Instructions: TAKE ONE TABLET BY MOUTH EVERY NIGHT AT BEDTIME carvedilol 6.25 mg tablet See Rx Instructions .ROUTE .COMPLEX Rx Instructions: TAKE ONE TABLET BY MOUTH TWICE A DAY FOR BLOOD PRESSURE trazodone 50 mg tablet See Rx Instructions .ROUTE .COMPLEX Rx Instructions: TAKE ONE TABLET BY MOUTH EVERY DAY (USUALLY AT BEDTIME) (DME) OneTouch Ultra Test Strip See Rx Instructions .ROUTE .COMPLEX Rx Instructions: TEST THREE TIMES DAILY DIRECTED omeprazole 40 mg capsule,delayed release(DR/EC) See Rx Instructions .ROUTE .COMPLEX Rx Instructions: TAKE 1 CAPSULE BY MOUTH EVERY DAY FOR STOMACH aspirin 81 mg tablet,delayed release (DR/EC) See Rx Instructions .ROUTE .COMPLEX Rx Instructions: TAKE ONE TABLET BY MOUTH EVERY DAY furosemide 80 mg tablet See Rx Instructions .ROUTE .COMPLEX Rx Instructions: TAKE ONE TABLET BY MOUTH EVERY DAY FOR FLUID nicotine 21 mg/24 hr patch 24 hour See Rx Instructions .ROUTE .COMPLEX Rx Instructions: APPLY 1 PATCH DAILY ergocalciferol (vitamin D2) [Vitamin D2] 1,250 mcg (50,000 unit) capsule See Rx Instructions .ROUTE .COMPLEX Rx Instructions: TAKE 1 CAPSULE BY MOUTH ONCE WEEKLY losartan 100 mg tablet See Rx Instructions .ROUTE .COMPLEX Rx Instructions: TAKE ONE TABLET BY MOUTH EVERY DAY FOR BLOOD PRESSURE fluoxetine 20 mg capsule See Rx Instructions .ROUTE .COMPLEX Rx Instructions: TAKE 1 CAPSULE BY MOUTH ONCE DAILY cholecalciferol (vitamin D3) 25 mcg (1,000 unit) tablet See Rx Instructions .ROUTE .COMPLEX Rx Instructions: TAKE ONE TABLET BY MOUTH EVERY DAY Ozempic 0.25 mg or 0.5 mg (2 mg/3 mL) pen injector 0.25 mg SQ WEEKLY Rx Instructions: 0.25mg weekly for 4weeks then 0.5mg weekly Referrals Follow up/Referrals: Wisam Foster MD [Primary Care Provider] - See instructions Discharge ED Provider: Cristian (ED)Wisam General Adult HPI General Chief complaint: PAIN Stated complaint: Right side face swelling, lump below ear; WHITE Time Seen by Provider: 08/02/22 02:18 Mode of Arrival: Ambulatory Source of Information: Patient Limitations: No Limitations Description of Symptoms (Recalled from ER Triage Doc. by RN): Pt presents with c/o right sided facial pain and swelling that started yesterday. Pt was seen in this ED 08/01/22 for bilateral ear pain as well and given a cream . Pt denies fevers, N/V/D, or any other symptoms other than pain and swelling to right side of her face near mandible. History of Present Illness HPI narrative: pt with swelling rt facial area and was seen and placed on topical - has increased swelling on rt Onset (ago): day(s) Location: face Severity: moderate Associated symptoms: denies other symptoms Related Data Home Medications Medication Instructions Recorded Confirmed aspirin 81 mg tablet,delayed See Rx Instructions .Route 08/02/22 08/02/22 release .COMPLEX Blood thinner atorvastatin 40 mg tablet See Rx Instructions .Route 08/02/22 08/02/22 .COMPLEX High cholesterol blood sugar diagnostic (OneTouch 08/02/22 08/02/22 Ultra Test strips) carvedilol 6.25 mg tablet See Rx Instructions .Route 08/02/22 08/02/22 .COMPLEX High blood pressure cholecalciferol (vitamin D3) 25 See Rx Instructions .Route
[2022-08-02 02:25] VITALS: BP 137/87; PULSE 74; RESP 16; TEMP 36.8; O2SAT 95
== END 2022-08-02 02:38 | disposition home or self-care (01) ==
PROVIDERS: Emergency Provider Emergency Medicine; PCP Emergency Medicine
DX: R51.9 Headache, unspecified (principal); R22.0 Localized swelling, mass and lump, head; F17.210 Nicotine dependence, cigarettes, uncomplicated
CPT/HCPCS: 70486; 70490; 80048; 85025; 85651; 86140; 96374; 99284; 99285; J0696

== ENCOUNTER → 2022-08-23 12:01 | Outpatient (CLI) | payer OTHER, SELFPAY ==
--- NOTE | 2022-08-23 | CA_ITS ---
APPROVED REPORT Exam: Pharmacologic Technologist: Spring Kuhn, Ht: 5 ft 2 in Wt: 261 lbs BSA: 2.14 m2 HR: 73 bpm BP: 139/70 mmHg Rhythm: NSR, LOW VOLTAGE QRS, CANNOT R/O OLD INFERIOR DE Indications: CP, ABN EKG Medical History Medical History: HTN, Hyperlipidemia, Diabetic Medications: Omeprazole,,,,, Aspirin,,,,, Trazadone,,,,, Losartan,,,,, Atorvastatin,,,,, Carvedilol,,,,, Glipizide,,,,, Nicotine patch,,,,, Albuterol,,,,, ZYRTEC,,,,, Vit D3,,,,, Fluoxetine,,,,, Allergies: EMPAGLIFLOZIN Cardiac Risk Factors: HTN, Hyperlipidemia, Diabetes Stress Test Details Test: LEXISCAN HR Resting HR: 73 bpm Max Heart Rate (APMHR): 160 bpm Max HR Achieved: 92 bpm Target HR (85% APMHR): 136 bpm % of APMHR: 58 Recovery HR: 76 bpm BP Resting BP: 139/70 mmHg Max BP: 142/75 mmHg Recovery BP: 133.0/68.0 mmHg ECG Resting ECG: NSR, LOW VOLTAGE QRS, CANNOT R/O OLD INFERIOR DE Clinical Exercise duration: 04:00 min Highest Stage Achieved: Stress ECG Conclusion PT HAD SOB, MILD HEAD AND CHEST DISCOMFORT NO SIGNIFICANT ST-CHANGES MYOVIEW IMAGES REPORTED SEPARATELY Test Summary REST . . . . . . . Resting REST 06:35 . . 73 . 139/ 70 . . Stage 1 01:00 . . 88 . . . . Stage 2 01:00 . . 90 . . . . Stage 3 01:00 . . 85 . 137/ 77 . . Stage 4 01:00 . . 82 . 141/ 75 . Stop exercise at 04:00 RECOVERY 01:00 . . 81 . 142/ 75 . . RECOVERY 02:00 . . 76 . 142/ 75 . . RECOVERY 03:00 . . 76 . 134/ 71 . . RECOVERY 04:00 . . 73 . 134/ 71 . . RECOVERY 04:40 . . 82 . 133/ 68 . . Electronically signed by : Ale Hart, 08/23/2022 18:59:32
--- NOTE | 2022-08-23 12:01 | NM_ITS ---
APPROVED REPORT Exam: Nuclear Stress Test Indication: chest pain..soa..fatigue Patient Location: Outpatient Stress Tech: Spring Bennett [place] Tech:NEENA Dai RT (R)(N)(M) Ht: 5 ft 2 in Wt: 260 lbs Bra Size: 42dd HR: 73 bpm BP: 139/70 mmHg BSA: 2.14 m2 TID: 1.08 BMI: 47.5 History: chest pain..soa..fatigue Procedure: Patient received 0.4 mg of intravenous Lexiscan, resting heart rate 73 bpm, resting blood pressure 139/70 mmHg, with Lexiscan maximum heart rate achieved was 92 bpm which is 85 % of the maximum predicted heart rate and blood pressure was 142/75 mmHg. With Lexiscan, patient denied any complaint of chest pain. Cardiac Stress and Resting SPECT Images: Cardiac Stress and Resting SPECT images were obtained using technetium 99m Myoview 31.8 mCi stress and 10.98 mCi at rest. Resting and stress images demonstrate a fixed anterior perfusion defect that is no longer visualized with prone positioning. This is consistent with breast attentuation. Gated images demosntrate normal LV global and regional systolic function. LV ejection fraction is calculcated at 70%. Conclusion: Resting and stress images demonstrate no perfusion defects. Gated images demosntrate normal LV global and regional systolic function. LV ejection fraction is calculcated at 70%. Electronically signed by : Ale Hart, 08/23/2022 19:04:39
== END ==
PROVIDERS: PCP Emergency Medicine; Visit Provider Nurse Practitioner Family
DX: R06.00 Dyspnea, unspecified (principal); R06.01 Orthopnea; R06.02 Shortness of breath; I10 Essential (primary) hypertension; R07.9 Chest pain, unspecified; E11.9 Type 2 diabetes mellitus without complications; E78.49 Other hyperlipidemia; J43.9 Emphysema, unspecified; E66.01 Morbid (severe) obesity due to excess calories; F17.200 Nicotine dependence, unspecified, uncomplicated; G47.33 Obstructive sleep apnea (adult) (pediatric); Z79.84 Long term (current) use of oral hypoglycemic drugs; Z68.42 Body mass index [BMI] 45.0-49.9, adult
CPT/HCPCS: 78452; 93017; 93306; A9502; J2785

== ENCOUNTER → 2022-09-16 14:03 | Outpatient (POV) | payer OTHER, SELFPAY | PROVIDERS: Visit Provider Specialist/Technologist | DX: Z00.00 Encounter for general adult medical examination without abnormal findings (principal) ==

== ENCOUNTER → 2022-11-18 13:40 | Outpatient (CLI) | payer OTHER, SELFPAY ==
[2022-11-18 18:28] LABS: Basophils # 0.5 K/mm3 (0-0.2); Basophils % 5.1 % (0.1-2.0); Eosinophils # 0.2 K/mm3 (0.0-0.4); Eosinophils % 2.3 % (0.1-12.0); Hematocrit 43.2 % (37.0-47.0); Hemoglobin 14.7 g/dL (12.2-16.2); Lymphocytes # 2.9 K/mm3 (0.7-4.5); Lymphocytes % 30.5 % (10-50); Mean Corpuscular Hemoglobin 30.8 pg (27.0-31.2); Mean Corpuscular Volume 90.6 fl (81-99); Mean Platelet Volume 9.3 fl (7.4-10.4); Monocytes # 0.6 K/mm3 (0.1-1.0); Monocytes % 6.7 % (1.7-9.3); Neutrophils # 5.7 K/mm3 (1.8-7.8); Neutrophils % 60.5 % (37.0-80.0); Platelet Count 308 K/mm3 (142-424); Red Blood Count 4.77 M/mm3 (4.20-5.40); Red Cell Distribution Width 14.4 % (11.5-17.5); White Blood Count 9.4 K/mm3 (4.8-10.8)
[2022-11-18 18:58] LABS: Alanine Aminotransferase 38 U/L (12-78); Albumin Level 4.3 g/dl (3.5-5.0); Albumin/Globulin Ratio 1.5 (1.1-1.8); Alkaline Phosphatase 115 U/L (38-126); Anion Gap 17.5 mEq/L (5-15); Aspartate Amino Transferase 38 U/L (14-36); Bilirubin,Total 0.2 mg/dl (0.2-1.3); Blood Urea Nitrogen 24 mg/dl (7-17); Calcium 9.4 mg/dl (8.4-10.2); Carbon Dioxide 25 mmol/L (22.0-30.0); Chloride 99 mmol/L (98-107); Chol/HDL Ratio 8.2 (1-3.5); Cholesterol 212 mg/dl (140-200); Estimated Glomerular Filt Rate 51 ml/min (>60); GFR (African American) 61 ML/MIN (>60); Globulin 2.9 g/dL (1.3-3.2); Glucose 353 mg/dl (74-100); HDL Cholesterol 26 mg/dl (40-60); Potassium 4.5 mmoL/L (3.5-5.1); Sodium 137 mmol/L (136-145); Total Protein,Serum 7.2 g/dl (6.3-8.2)
[2022-11-18 18:59] LABS: Triglycerides 466 mg/dl (30-150)
[2022-11-18 18:59] LABS: Hemoglobin A1C 7.6 % (4.0-6.0)
[2022-11-18 19:10] LABS: Direct LDL Cholesterol 118.61 mg/dL (100-129)
[2022-11-18 19:17] LABS: 25-OH Vitamin D, Total 23.4 ng/mL (30-100); T4 (Thyroxine) 9.5 ug/dl (5.53-11.0)
[2022-11-18 19:30] LABS: Thyroid Stimulating Hormone 2.55 uIU/mL (0.465-4.68)
[2022-11-18 19:49] LABS: Vitamin B12 486 pg/mL (239-931)
[2022-11-20 08:10] LABS: Estradiol 23.7 pg/mL (.); FSH 25.7 mIU/mL (.)
[2022-11-26 19:37] LABS: Estrogen 125 pg/mL (40-244)
== END ==
PROVIDERS: PCP Emergency Medicine; Visit Provider Emergency Medicine
DX: F32.A Depression, unspecified (principal); E78.5 Hyperlipidemia, unspecified; R73.09 Other abnormal glucose; E55.9 Vitamin D deficiency, unspecified; E66.9 Obesity, unspecified; Z68.42 Body mass index [BMI] 45.0-49.9, adult; F17.210 Nicotine dependence, cigarettes, uncomplicated; Z79.899 Other long term (current) drug therapy
CPT/HCPCS: 80053; 80061; 82306; 82607; 82670; 82672; 83001; 83036; 84436; 84443; 85025

== ENCOUNTER → 2022-11-30 14:56 | Outpatient (CLI) | payer OTHER, SELFPAY ==
--- NOTE | 2022-11-30 14:56 | MM_ITS ---
PROCEDURE INFORMATION: Exam: MG Bilateral Screening 3D Mammography Exam date and time: 11/30/2022 3:06 PM Age: 62 years old Clinical indication: Screening examination; No personal or family history of breast cancer TECHNIQUE: Imaging protocol: Bilateral Screening tomosynthesis and 2D mammography including computer-aided detection (CAD) when performed. COMPARISON: 1. MG MM DIG SCREENING MAMM BI W/CAD 06/23/2020 9:29 AM 2. MG SCBI MM Dig screening mamm BI w/CAD 10/25/2017 2:24 PM FINDINGS: MAMMOGRAPHY: Breast composition: There are scattered areas of fibroglandular density. Mass: None. Architectural distortion: None. Calcifications: No suspicious calcifications. Asymmetric density: None. Skin thickening: None. Axillary adenopathy: None. IMPRESSION: No mammographic evidence of malignancy. Annual screening is recommended unless otherwise clinically indicated. ASSESSMENT: BI-RADS Category 1: Negative
== END ==
PROVIDERS: PCP Emergency Medicine; Visit Provider Emergency Medicine
DX: Z12.31 Encounter for screening mammogram for malignant neoplasm of breast (principal)
CPT/HCPCS: 77063; 77067

== ENCOUNTER 2022-12-08 19:23 | Emergency (ER) | payer OTHER, SELFPAY ==
[2022-12-08 19:25] VITALS: BP 122/76; PULSE 90; RESP 20; O2SAT 97; BMI 45.7
--- NOTE | 2022-12-08 20:01 | XR_ITS ---
PROCEDURE INFORMATION: Exam: XR Right Ankle Exam date and time: 12/08/2022 8:04 PM Age: 62 years old Clinical indication: Pain; Ankle; Right; Additional info: Accident TECHNIQUE: Imaging protocol: Radiologic exam of the right ankle. Views: 3 or more views. COMPARISON: CR XR FOOT RT MIN 3V 12/08/2022 8:02 PM FINDINGS: Bones/joints: Osseous alignment is normal. No acute fracture. No significant arthritic change. Moderate plantar enthesophyte formation of the calcaneus. Soft tissues: Moderate soft tissue swelling of the ankle. IMPRESSION: No acute fracture or malalignment
--- NOTE | 2022-12-08 20:01 | XR_ITS ---
PROCEDURE INFORMATION: Exam: XR Right Foot Exam date and time: 12/08/2022 8:02 PM Age: 62 years old Clinical indication: Pain; Foot; Right; Additional info: Accdient TECHNIQUE: Imaging protocol: Radiologic exam of the right foot. Views: 3 or more views. COMPARISON: CR XR FOOT RT 2V 09/26/2019 6:44 PM FINDINGS: Bones/joints: Osseous alignment is normal. No acute fracture. Moderate plantar enthesophyte formation of the calcaneus. No significant arthritic change. Soft tissues: Normal. IMPRESSION: No acute fracture or malalignment.
--- NOTE | 2022-12-08 20:09 | HMH.EDGENADL ---
Discharge Plan Disposition Patient Disposition: Home, Self-Care Prescriptions Prescriptions: New cephalexin 500 mg capsule 500 mg PO QID 10 Days Qty: 40 0RF No Action glipizide 10 mg tablet extended release 24hr 10 mg PO BID Qty: 180 2RF esomeprazole magnesium [Nexium] 40 mg capsule,delayed release(DR/EC) 40 mg PO DAILY Qty: 30 0RF bupropion HCl 75 mg tablet 75 mg PO BID Qty: 60 0RF Rx Instructions: administer 6 hours apart clonazepam [Klonopin] 0.5 mg tablet 0.5 mg PO BID Qty: 60 0RF tramadol 50 mg tablet 50 mg PO BID Qty: 60 0RF aspirin 81 mg tablet,delayed release (DR/EC) See Rx Instructions .ROUTE .COMPLEX Qty: 90 0RF Dose Instruction: TAKE ONE TABLET BY MOUTH EVERY DAY Rx Instructions: TAKE ONE TABLET BY MOUTH EVERY DAY trazodone 50 mg tablet See Rx Instructions .ROUTE .COMPLEX Qty: 90 0RF Dose Instruction: TAKE ONE TABLET BY MOUTH EVERY DAY (USUALLY AT BEDTIME) Rx Instructions: TAKE ONE TABLET BY MOUTH EVERY DAY (USUALLY AT BEDTIME) (DME) OneTouch Ultra Test Strip See Rx Instructions .ROUTE .COMPLEX Qty: 100 0RF Dose Instruction: TEST THREE TIMES DAILY DIRECTED Rx Instructions: TEST THREE TIMES DAILY DIRECTED (DME) lancets [OneTouch Delica Plus Lancet] 30 gauge misc See Rx Instructions .ROUTE .COMPLEX Qty: 100 0RF Dose Instruction: USE THREE TIMES DAILY Rx Instructions: USE THREE TIMES DAILY Ozempic 0.25 mg or 0.5 mg (2 mg/3 mL) pen injector 0.5 mg SQ WEEKLY Qty: 3 2RF Farxiga 10 mg tablet 10 mg PO DAILY Qty: 30 2RF atorvastatin [Lipitor] 80 mg tablet 80 mg PO DAILY Qty: 30 2RF triamcinolone acetonide 0.025 % cream 1 applic topical DAILY Rx Instructions: Apply to the affected areas once a day for 5 days. Wash your hands thoroughly after application. carvedilol 6.25 mg tablet See Rx Instructions .ROUTE .COMPLEX Rx Instructions: TAKE ONE TABLET BY MOUTH TWICE A DAY FOR BLOOD PRESSURE furosemide 80 mg tablet See Rx Instructions .ROUTE .COMPLEX Rx Instructions: TAKE ONE TABLET BY MOUTH EVERY DAY FOR FLUID nicotine 21 mg/24 hr patch 24 hour See Rx Instructions .ROUTE .COMPLEX Rx Instructions: APPLY 1 PATCH DAILY ergocalciferol (vitamin D2) [Vitamin D2] 1,250 mcg (50,000 unit) capsule See Rx Instructions .ROUTE .COMPLEX Rx Instructions: TAKE 1 CAPSULE BY MOUTH ONCE WEEKLY losartan 100 mg tablet See Rx Instructions .ROUTE .COMPLEX Rx Instructions: TAKE ONE TABLET BY MOUTH EVERY DAY FOR BLOOD PRESSURE cholecalciferol (vitamin D3) 25 mcg (1,000 unit) tablet See Rx Instructions .ROUTE .COMPLEX Rx Instructions: TAKE ONE TABLET BY MOUTH EVERY DAY Referrals Follow up/Referrals: Wisam Foster MD [Primary Care Provider] - See instructions Activity Restrictions/Add. Instructions Additional Instructions/Restrictions: There is no evidence of fracture dislocation or x-ray. If soft tissue swelling over the medial aspect of the heel and a heel spur on your x-ray which could be from plantar fasciitis or developing soft tissue infection. An antibiotic has been prescribed as this may be a brewing infection. Return with worsening redness fevers or other concerns. Take [id number] medications as discussed and follow-up with primary care doctor as discussed as well as you may need an outpatient MRI if you are not improving. Clinical Impressions Clinical Impression: Acute pain of right foot Discharge ED Provider: Christian Mayers General Adult HPI General Chief complaint: PAIN Stated complaint: PAIN RIGHT FOOT Time Seen by Provider: 12/08/22 19:56 Mode of Arrival: Ambulatory Source of Information: Patient Limitations: Physical Limitations Description of Symptoms (Recalled from ER Triage Doc. by RN): Monday at son's home climbing swimming pool steps that were very narrow. Next day ida
[2022-12-08 20:56] VITALS: BP 118/73; PULSE 82; RESP 18; TEMP 36.7; O2SAT 98
== END 2022-12-08 20:56 | disposition home or self-care (01) ==
PROVIDERS: Emergency Provider Student in an Organized Health Care Education/Training Program; PCP Emergency Medicine
DX: M79.671 Pain in right foot (principal); M79.661 Pain in right lower leg; E66.9 Obesity, unspecified; J44.9 Chronic obstructive pulmonary disease, unspecified; E78.5 Hyperlipidemia, unspecified; I10 Essential (primary) hypertension; R01.1 Cardiac murmur, unspecified; G47.33 Obstructive sleep apnea (adult) (pediatric); F17.210 Nicotine dependence, cigarettes, uncomplicated
CPT/HCPCS: 73610; 73630; 99284

== ENCOUNTER 2022-12-22 17:04 | Observation (INO) | payer OTHER, SELFPAY ==
[2022-12-22] VITALS (8 sets, daily range): BP systolic 97–170; BP diastolic 58–107; PULSE 78–91; RESP 18–20; TEMP 36.7; O2SAT 93–100; BMI 30.7; BMI 41.4
--- NOTE | 2022-12-22 18:05 | HMH.EDGENADL ---
Discharge Plan Disposition Patient Disposition: Admitted Condition: Good Clinical Impressions Clinical Impression: Nausea vomiting and diarrhea, ALEXUS (acute kidney injury), Hypomagnesemia, Hypokalemia Discharge ED Provider: Zoë Leon General Adult HPI General Chief complaint: Weakness Stated complaint: SOB,Vomiting,nausa Time Seen by Provider: 12/22/22 17:14 History of Present Illness HPI narrative: This patient is a 62-year-old female with a history of poorly controlled diabetes who was recently restarted on metformin, CKD, CLYDE, hypertension, tobacco use disorder, hyperlipidemia, and morbid obesity presenting to the emergency department for evaluation with concern for 1 week of nausea, vomiting, poor oral intake, diarrhea, and generalized weakness. She states that she feels like her mouth is very dry. She also states that she is fatigued and feels like she could fall asleep anywhere. She states that ever since she started the metformin, she has been having loose, watery diarrhea. She denies any hematochezia, melena, or other concerns. She denies any fevers, chest pain, shortness of breath, or abdominal pain associated with this. Related Data Home Medications Medication Instructions Recorded Confirmed cholecalciferol (vitamin D3) 25 See Rx Instructions .Route 08/02/22 12/16/22 mcg (1,000 unit) tablet .COMPLEX Supplement ergocalciferol (vitamin D2) 1,250 See Rx Instructions .Route 08/02/22 12/16/22 mcg (50,000 unit) capsule (Vitamin .COMPLEX Supplement D2) furosemide 80 mg tablet See Rx Instructions .Route 08/02/22 12/16/22 .COMPLEX Fluid nicotine 21 mg/24 hr daily See Rx Instructions .Route 08/02/22 12/16/22 transdermal patch .COMPLEX smoking triamcinolone acetonide 0.025 % 1 applic topical DAILY Infection 08/02/22 12/16/22 topical cream Previous Rx's Medication Instructions Recorded glipizide 10 mg tablet, extended 10 mg PO BID diabetes #180 tabs 05/24/22 release 24 hr blood sugar diagnostic (OneTouch #100 ea 09/16/22 Ultra Test strips) lancets 30 gauge (OneTouch Delica #100 ea 09/16/22 Plus Lancet) atorvastatin 80 mg tablet (Lipitor) 80 mg PO DAILY #30 tabs 11/21/22 dapagliflozin propanediol 10 mg 10 mg PO DAILY #30 tabs 11/21/22 tablet (Farxiga) aspirin 81 mg tablet,delayed See Rx Instructions .Route 12/16/22 release .COMPLEX #90 tabs bupropion HCl 75 mg tablet 75 mg PO BID #60 tabs 12/16/22 carvedilol 6.25 mg tablet See Rx Instructions .Route 12/16/22 .COMPLEX #180 tabs clonazepam 0.5 mg tablet (Klonopin) 0.5 mg PO BID #60 tabs 12/16/22 esomeprazole magnesium 40 mg 40 mg PO DAILY #30 caps 12/16/22 capsule,delayed release (Nexium) losartan 100 mg tablet See Rx Instructions .Route 12/16/22 .COMPLEX #90 tabs metformin 500 mg tablet 500 mg PO BID #60 tabs 12/16/22 semaglutide 1 mg/dose (4 mg/3 mL) 1 mg (0.75 mL) SQ WEEKLY #3 mL 12/16/22 subcutaneous pen injector (Ozempic) tramadol 50 mg tablet 50 mg PO BID #60 tabs 12/16/22 trazodone 50 mg tablet See Rx Instructions .Route 12/16/22 .COMPLEX #90 tabs Allergies Allergy/AdvReac Type Severity Reaction Status Date / Time empagliflozin AdvReac Mild Bones Verified 12/16/22 13:14 [From Jardiance] would ache [facility] Disclaimer: The information contained in this section may have been updated after the patient was seen, as this information can be updated by other users. Medical History (Updated 12/22/22 @ 23:10 by Jada Palomino RN) Abnormal electrocardiogram [ECG] [EKG] Anxiety Chronic obstructive lung disease Dysphonia Fatigue History of skin cancer History of skin cancer Hoarseness Hyperlipidemia Hypertension Murmur, heart CLYDE (obstructive sleep apnea) Surgical History History of History of cholecystectomy Hx of tubal ligation Family History Other Coronary artery disease Diabetes
--- NOTE | 2022-12-22 18:09 | ECG_ITS ---
APPROVED REPORT Exam: Resting ECG HR:82 bpm ECG Measurements Heart Rate 82 AXES AK 160 P 71 QRSd 102 QRS -36 QT 395 T 65 QTc 434 Conclusion SINUS RHYTHM LEFT AXIS DEVIATION [QRS AXIS < -30] LOW QRS VOLTAGE IN PRECORDIAL LEADS [QRS DEFLECTION < 1.0 mV IN CHEST LEADS] PATTERN CONSISTENT WITH PULMONARY DISEASE Isolated Q in III ABNORMAL ECG UNCONFIRMED REPORT Electronically signed by : Aniket Martínez MD 12/23/2022 15:58:25
[2022-12-22 18:30] LABS: Basophils # 0.1 K/mm3 (0-0.2); Basophils % 0.6 % (0.1-2.0); Eosinophils # 0.1 K/mm3 (0.0-0.4); Hematocrit 44.1 % (37.0-47.0); Hemoglobin 14.2 g/dL (12.2-16.2); Lymphocytes # 3.4 K/mm3 (0.7-4.5); Lymphocytes % 27.3 % (10-50); Mean Corpuscular HGB Conc 32.3 g/dL (31.8-35.4); Mean Corpuscular Hemoglobin 27.8 pg (27.0-31.2); Mean Corpuscular Volume 86.2 fl (81-99); Mean Platelet Volume 9.7 fl (7.4-10.4); Monocytes # 0.8 K/mm3 (0.1-1.0); Monocytes % 6.5 % (1.7-9.3); Neutrophils % 64.7 % (37.0-80.0); Platelet Count 305 K/mm3 (142-424); Red Blood Count 5.12 M/mm3 (4.20-5.40); Red Cell Distribution Width 15.3 % (11.5-17.5); White Blood Count 12.3 K/mm3 (4.8-10.8)
[2022-12-22 18:33] LABS: VBG Base Excess 1.5 mmol/L (-2.4-2.3); VBG HCO3 25.9 mmol/L (23-30); VBG Oxygen Saturation 87.9 % (50-70); VBG PCO2 40.7 mmol/L (35-51); VBG PH 7.42 mmol/L (7.31-7.41); VBG PO2 48.8 mmol/L (28-40); VBG Total CO2 27.2 mmol/L (23-27)
[2022-12-22 18:35] LABS: Chloride 95 mmol/L (98-107); Potassium 3.1 mmoL/L (3.5-5.1); Sodium 139 mmol/L (136-145)
[2022-12-22 18:37] LABS: Alanine Aminotransferase 42 U/L (12-78); Alkaline Phosphatase 136 U/L (38-126); Aspartate Amino Transferase 43 U/L (14-36); Bilirubin,Total 0.6 mg/dl (0.2-1.3); Blood Urea Nitrogen 33 mg/dl (7-17); Creatinine Clearance Estimated 50 mL/min (50-200); Estimated Glomerular Filt Rate 33 ml/min (>60); GFR (African American) 40 ML/MIN (>60)
[2022-12-22 18:38] LABS: Albumin Level 4.3 g/dl (3.5-5.0); Albumin/Globulin Ratio 1.3 (1.1-1.8); Anion Gap 16.1 mEq/L (5-15); Calcium 9.4 mg/dl (8.4-10.2); Carbon Dioxide 31 mmol/L (22.0-30.0); Globulin 3.2 g/dL (1.3-3.2); Glucose 191 mg/dl (74-100); Lipase 195 U/L (23-300); Magnesium 1.5 mg/dl (1.6-2.3); Total Protein,Serum 7.5 g/dl (6.3-8.2)
[2022-12-22 18:39] LABS: Lactic Acid 1.6 mmol/L (0.7-2.1)
--- NOTE | 2022-12-22 19:33 | PC.NURSE ---
V/O per MD for 1L LR IV
--- NOTE | 2022-12-22 19:50 | PC.NURSE ---
Rounded on patient; call light within reach of patient. Pillow provided nothing needed at this time
--- NOTE | 2022-12-22 20:23 | PC.NURSE ---
Rounded on patient nothing needed at this time. Call pop within reach
--- NOTE | 2022-12-22 20:54 | PC.NURSE ---
Rounded on patient; call light within reach of patient
--- NOTE | 2022-12-22 21:04 | PC.NURSE ---
Patient stated her second bag of potassium IV was burning. Warm compress applied. Patient states it feels much better. Call light within reach
--- NOTE | 2022-12-22 21:46 | PC.NURSE ---
OBSERVATION ADMISSION TO 202 WITH DX OF ALEXUS, HYPOMAGNESIUM, AND LOW POTASSIUM TO SERVICE OF HOSPITALIST.
--- NOTE | 2022-12-22 21:53 | EXP.HP ---
History of Present Illness *Admission Date: 12/22/22 *Reason for visit:: Weakness *History of present illness: This is a 62-year-old female with PMHx of poorly controlled diabetes who was recently restarted on metformin, CKD, CLYDE, hypertension, tobacco use disorder, hyperlipidemia, and morbid obesity presenting to the emergency department for evaluation with concern for 1 week of nausea, vomiting, poor oral intake, watery diarrhea, and generalized weakness, after recent started on metformin. She stated that she feels dry and increased fatigue. She denies any hematochezia, melena, or other concerns. She denies any fevers, chest pain, shortness of breath, or abdominal pain associated with this. Admitted for observation. [facility] Disclaimer: The information contained in this section may have been updated after the patient was seen, as this information can be updated by other users. Medical History (Updated 12/23/22 @ 03:49 by Rony Adler APRN) Abnormal electrocardiogram [ECG] [EKG] Anxiety Chronic obstructive lung disease Dysphonia Fatigue History of skin cancer History of skin cancer Hoarseness Hyperlipidemia Hypertension Murmur, heart CLYDE (obstructive sleep apnea) Surgical History History of History of cholecystectomy Hx of tubal ligation Family History Other Coronary artery disease Diabetes Hyperlipidemia Hypertension Social History Smoking Status: Never smoker second hand exposure: Yes alcohol intake: never substance use type: denies use current occupational status: disabled Travel in the last 8 weeks: None household members: none housing: apartment current occupational exposures/hazards: No caffeine: Yes Review of Systems Review of Systems Review of systems:: pertinent systems reviewed and negative unless documented below Meds Home Medications and Allergies Home Medications Medication Instructions Recorded Confirmed Type glipizide 10 mg tablet, extended 10 mg PO BID diabetes #180 tabs 05/24/22 12/16/22 Rx release 24 hr cholecalciferol (vitamin D3) 25 See Rx Instructions .Route 08/02/22 12/16/22 History mcg (1,000 unit) tablet .COMPLEX Supplement ergocalciferol (vitamin D2) 1,250 See Rx Instructions .Route 08/02/22 12/16/22 History mcg (50,000 unit) capsule (Vitamin .COMPLEX Supplement D2) furosemide 80 mg tablet See Rx Instructions .Route 08/02/22 12/16/22 History .COMPLEX Fluid nicotine 21 mg/24 hr daily See Rx Instructions .Route 08/02/22 12/16/22 History transdermal patch .COMPLEX smoking triamcinolone acetonide 0.025 % 1 applic topical DAILY Infection 08/02/22 12/16/22 History topical cream blood sugar diagnostic (OneTouch #100 ea 09/16/22 12/16/22 Rx Ultra Test strips) lancets 30 gauge (OneTouch Delica #100 ea 09/16/22 12/16/22 Rx Plus Lancet) atorvastatin 80 mg tablet (Lipitor) 80 mg PO DAILY #30 tabs 11/21/22 12/16/22 Rx dapagliflozin propanediol 10 mg 10 mg PO DAILY #30 tabs 11/21/22 12/16/22 Rx tablet (Farxiga) aspirin 81 mg tablet,delayed See Rx Instructions .Route 12/16/22 12/16/22 Rx release .COMPLEX #90 tabs bupropion HCl 75 mg tablet 75 mg PO BID #60 tabs 12/16/22 12/16/22 Rx carvedilol 6.25 mg tablet See Rx Instructions .Route 12/16/22 12/16/22 Rx .COMPLEX #180 tabs clonazepam 0.5 mg tablet (Klonopin) 0.5 mg PO BID #60 tabs 12/16/22 12/16/22 Rx esomeprazole magnesium 40 mg 40 mg PO DAILY #30 caps 12/16/22 12/16/22 Rx capsule,delayed release (Nexium) losartan 100 mg tablet See Rx Instructions .Route 12/16/22 12/16/22 Rx .COMPLEX #90 tabs metformin 500 mg tablet 500 mg PO BID #60 tabs 12/16/22 12/16/22 Rx semaglutide 1 mg/dose (4 mg/3 mL) 1 mg (0.75 mL) SQ WEEKLY #3 mL 12/16/22 12/16/22 Rx subcutaneous pen injector (Ozempic) tramadol 50
--- NOTE | 2022-12-22 22:49 | PC.NURSE ---
pt to floor via wheelchair at this time
[2022-12-23] VITALS (8 sets, daily range): BP systolic 86–112; BP diastolic 52–67; PULSE 70–80; RESP 18–19; TEMP 36.6–36.9; O2SAT 92–98
--- NOTE | 2022-12-23 06:28 | PC.NURSE ---
Patient new admit this shift. patient alert and oriented, remains on 2L NC o2 sats above 90%. Patient placed on tele due to receiving potassium and mag. No complaints voiced. Call pop and personal items in reach POC ongoing.
[2022-12-23 06:48] LABS: Basophils # 0.1 K/mm3 (0-0.2); Basophils % 0.6 % (0.1-2.0); Eosinophils # 0.1 K/mm3 (0.0-0.4); Eosinophils % 1.2 % (0.1-12.0); Hematocrit 40.7 % (37.0-47.0); Hemoglobin 13.1 g/dL (12.2-16.2); Lymphocytes # 3.5 K/mm3 (0.7-4.5); Lymphocytes % 38.1 % (10-50); Mean Corpuscular HGB Conc 32.1 g/dL (31.8-35.4); Mean Corpuscular Hemoglobin 27.8 pg (27.0-31.2); Mean Corpuscular Volume 86.7 fl (81-99); Mean Platelet Volume 9.2 fl (7.4-10.4); Monocytes # 0.6 K/mm3 (0.1-1.0); Monocytes % 6.7 % (1.7-9.3); Neutrophils # 4.8 K/mm3 (1.8-7.8); Neutrophils % 53.4 % (37.0-80.0); Platelet Count 253 K/mm3 (142-424); Red Blood Count 4.69 M/mm3 (4.20-5.40); Red Cell Distribution Width 15.4 % (11.5-17.5); White Blood Count 9.1 K/mm3 (4.8-10.8)
[2022-12-23 06:59] LABS: Alanine Aminotransferase 29 U/L (12-78); Albumin Level 3.5 g/dl (3.5-5.0); Albumin/Globulin Ratio 1.3 (1.1-1.8); Alkaline Phosphatase 115 U/L (38-126); Anion Gap 11.2 mEq/L (5-15); Aspartate Amino Transferase 27 U/L (14-36); Blood Urea Nitrogen 27 mg/dl (7-17); Calcium 8.2 mg/dl (8.4-10.2); Carbon Dioxide 33 mmol/L (22.0-30.0); Chloride 99 mmol/L (98-107); Chol/HDL Ratio 4.4 (1-3.5); Cholesterol 97 mg/dl (140-200); Creatinine Clearance Estimated 37 mL/min (50-200); Estimated Glomerular Filt Rate 38 ml/min (>60); GFR (African American) 46 ML/MIN (>60); Globulin 2.7 g/dL (1.3-3.2); Glucose 195 mg/dl (74-100); HDL Cholesterol 22 mg/dl (40-60); Magnesium 1.9 mg/dl (1.6-2.3); Phosphorous 3.7 mg/dl (2.5-4.5); Potassium 3.2 mmoL/L (3.5-5.1); Sodium 140 mmol/L (136-145); Total Protein,Serum 6.2 g/dl (6.3-8.2); Triglycerides 252 mg/dl (30-150); VLDL Cholesterol 50 mg/dL (0-40)
[2022-12-23 07:02] LABS: Bilirubin,Total < 0.1 mg/dl (0.2-1.3)
[2022-12-23 07:10] LABS: Direct LDL Cholesterol 47.05 mg/dL (100-129)
[2022-12-23 14:22] LABS: Microscopic, Urine URINE MICROSCOPIC (MICROSCOPIC)
--- NOTE | 2022-12-23 15:01 | PC.NURSE ---
PT IS RESTING IN BED. ALERT AND ORIENTED X4. AMBULATES TO THE BATHROOM STANDBY ASSIST. EATING AND DRINKING WELL. O2 SATURATION 92-94% ON ROOM AIR. LUNG SOUNDS DIMINISHED. ABDOMEN SOFT/NON TENDER WITH HYPOACTIVE BOWEL SOUNDS. WILL CONTINUE TO MONITOR.
--- NOTE | 2022-12-23 15:02 | EXP.PN ---
Subjective *Date: 12/23/22 *Time: 15:02 Interval history: The patient is seen and examined at bedside. I am accompanied by nursing staff. They report that she remains afebrile with stable heart rates, some low blood pressures and saturating appropriately on room air. We have reviewed and discussed and I have personally interpreted her labs as follows: A morning CBC with a resolved leukocytoses WBC 9.1, stable hemoglobin 13.1, normal platelets and MCV 87. Her morning electrolytes identify potassium deficiency 3.2 with normal chloride, anion gap and BUN of 27 with creatinine that is improved down to 1.4. Her baseline creatinine is 1.0. A recent hemoglobin A1c in December is 9.5% which identifies uncontrolled diabetes. Her morning magnesium is 1.9 with normal LFTs. Exam Data for Last 24 hours Vital signs and Labs for Last 24 Hours: Temp Pulse Resp BP Pulse Ox O2 Del Method O2 Flow Rate 98.4 F 70 18 86/56 L 94 L Room Air 2 12/23/22 07:59 12/23/22 12:00 12/23/22 07:59 12/23/22 07:59 12/23/22 08:00 12/23/22 14:37 12/23/22 08:44 Laboratory Results - last 24 hr 12/22/22 18:11: VBG pH 7.42 H, VBG pCO2 40.7, VBG pO2 48.8 H, VBG HCO3 25.9, VBG Total CO2 27.2 H, VBG O2 Saturation 87.9 H, VBG Base Excess 1.5 12/22/22 18:21: WBC 12.3 H, RBC 5.12, Hgb 14.2, Hct 44.1, MCV 86.2, MCH 27.8, MCHC 32.3, RDW 15.3, Plt Count 305, MPV 9.7, Neut % (Auto) 64.7, Lymph % (Auto) 27.3, [place] % (Auto) 6.5, Eos % (Auto) 1.0, Baso % (Auto) 0.6, Neut # (Auto) 8.0 H, Lymph # (Auto) 3.4, [place] # (Auto) 0.8, Eos # (Auto) 0.1, Baso # (Auto) 0.1, Sodium 139, Potassium 3.1 L, Chloride 95 L, Carbon Dioxide 31 H, Anion Gap 16.1 H, BUN 33 H, Creatinine 1.60 H, Estimated Creat Clear 50, Estimated GFR 33 L, Est GFR ( Amer) 40 L, Glucose 191 H, Lactate 1.6, Calcium 9.4, Magnesium 1.5 L, Total Bilirubin 0.6, AST 43 H, ALT 42, Alkaline Phosphatase 136 H, Total Protein 7.5, Albumin 4.3, Globulin 3.2, Albumin/Globulin Ratio 1.3, Lipase 195 12/23/22 06:03: WBC 9.1 D, RBC 4.69, Hgb 13.1, Hct 40.7, MCV 86.7, MCH 27.8, MCHC 32.1, RDW 15.4, Plt Count 253, MPV 9.2, Neut % (Auto) 53.4, Lymph % (Auto) 38.1, [place] % (Auto) 6.7, Eos % (Auto) 1.2, Baso % (Auto) 0.6, Neut # (Auto) 4.8, Lymph # (Auto) 3.5, [place] # (Auto) 0.6, Eos # (Auto) 0.1, Baso # (Auto) 0.1, Sodium 140, Potassium 3.2 L, Chloride 99, Carbon Dioxide 33 H, Anion Gap 11.2, BUN 27 H, Creatinine 1.40 H, Estimated Creat Clear 37, Estimated GFR 38 L, Est GFR ( Amer) 46 L, Glucose 195 H, Calcium 8.2 L, Phosphorus 3.7, Magnesium 1.9 D, Total Bilirubin < 0.1 L, AST 27 D, ALT 29 D, Alkaline Phosphatase 115, Total Protein 6.2 L, Albumin 3.5 D, Globulin 2.7, Albumin/Globulin Ratio 1.3, Triglycerides 252 H, Cholesterol 97 L, LDL Cholesterol Direct 47.05 L, VLDL Cholesterol 50 H, HDL Cholesterol 22 L, Cholesterol/HDL Ratio 4.4 H I & O for Last 24 hours: Intake & Output 12/20/22 12/21/22 12/22/22 12/23/22 23:59 23:59 23:59 23:59 Intake Total 1502 / 1502 Output Total 100 / 100 0 / 0 Balance -100 / 562 1502 / 1502 Weight 112.763 kg Constitutional Constitutional: no acute distress, chronically ill appearing and cooperative *Routine HEENT Exam Head: Present normocephalic ENT: Present mucous membranes moist *Routine Neck Exam Neck: Present supple, full ROM and trachea midline; Absent lymphadenopathy *Routine Respiratory Exam Respiratory: Present rhonchi, normal respiratory effort and symmetric chest movement *Routine Cardiovascular Exam Cardiovascular: Present RRR *Routine Extremities Exam Extremities: Present full ROM, pulses intact and normal capillary refill *Routine Skin Exam Skin: Present intact; Absent rash *Routine Neurological Exam Neurological: Present alert, oriented X3, moving all extremities and normal speech; Absent sensory deficit or motor deficit Routine Psychiatric Exam Psychiatric: Present normal affect, normal thought process, cooperative, good insight and good judgment Assessment
[2022-12-23 15:19] LABS: Appearance,Urine CLEAR (Clear); Bilirubin,Urine Negative (Negative); Blood, Urine Negative (Negative); Color,Urine YELLOW (Yellow); Glucose,Urine (UA) 3+ (Negative); Ketones,Urine Negative (Negative); Leukocyte Esterase,Urine Negative (Negative); Nitrate,Urine Negative (Negative); PH,Urine 6.5 (5.0-8.5); Protein,Urine Negative (Negative); Urobilinogen,Urine 0.2 EU/dl (0.2)
[2022-12-23 15:22] LABS: Bacteria,Urine Trace /lpf; WBC,Urine Occasional #/hpf (0-3)
[2022-12-23 15:58] LABS: POC Glucose,Bedside 226 (70-110)
[2022-12-23 20:19] LABS: POC Glucose,Bedside 224 (70-110)
[2022-12-24] VITALS: BP 94/50; PULSE 74; PULSE 75; RESP 18; TEMP 36.7; O2SAT 94
[2022-12-24 04:00] VITALS: BP 114/78; PULSE 71; PULSE 72; RESP 20; TEMP 36.9; O2SAT 95; BMI 42.3
[2022-12-24 05:32] LABS: POC Glucose,Bedside 178 (70-110)
--- NOTE | 2022-12-24 06:39 | PC.NURSE ---
NSR ON TELE. DENIES PAIN/DISCOMFORT. UP IN CHAIR AT THIS TIME. VSS/AFEBRILE.
[2022-12-24 07:51] VITALS: BP 128/70; PULSE 70; RESP 18; TEMP 36.8; O2SAT 95
[2022-12-24 08:00] VITALS: PULSE 75
[2022-12-24 08:30] LABS: Anion Gap 13.4 mEq/L (5-15); Blood Urea Nitrogen 17 mg/dl (7-17); Calcium 8.7 mg/dl (8.4-10.2); Carbon Dioxide 32 mmol/L (22.0-30.0); Chloride 101 mmol/L (98-107); Creatinine Clearance Estimated 47 mL/min (50-200); Estimated Glomerular Filt Rate 51 ml/min (>60); GFR (African American) 61 ML/MIN (>60); Glucose 159 mg/dl (74-100); Potassium 3.4 mmoL/L (3.5-5.1); Sodium 143 mmol/L (136-145)
[2022-12-24 11:20] VITALS: BP 140/75; PULSE 71; RESP 18; TEMP 37; O2SAT 94
--- NOTE | 2022-12-24 11:44 | EXP.DC.SUM ---
General Admission date:: 12/22/22 Discharge date: 12/24/22 HPI HPI HPI: This is a 62-year-old female with PMHx of poorly controlled diabetes who was recently restarted on metformin, CKD, CLYDE, hypertension, tobacco use disorder, hyperlipidemia, and morbid obesity presenting to the emergency department for evaluation with concern for 1 week of nausea, vomiting, poor oral intake, watery diarrhea, and generalized weakness, after recent started on metformin. She stated that she feels dry and increased fatigue. She denies any hematochezia, melena, or other concerns. She denies any fevers, chest pain, shortness of breath, or abdominal pain associated with this. Admitted for observation. Hospital Course Hospital Course Hospital Course: The patient was admitted to the telemetry unit with IV fluid resuscitation. Her laboratory studies and inflammatory markers were trended. Problems addressed as follows: Acute kidney injury resolved Baseline creatinine 1.0 Trending electrolytes and creatinine Gentle IV fluid resuscitation with identified HFpEF Avoiding NSAIDs Enteritis Dehydration Concerns for viral etiology with reassuring labs Trending labs and inflammatory markers Electrolyte and mineral replacement therapy Advancing diet as tolerated Diabetes Routine blood sugar monitoring Hemoglobin A1c 9.5% Basal insulin therapy Sliding scale insulin therapy Carbohydrate controlled diet Coronary artery disease Antiplatelet therapy Statin therapy Beta-naldo therapy ARB therapy Chronic HFpEF Echocardiogram (August 2022) with EF 55% Loop diuretic therapy Beta-naldo therapy SGLT2 inhibitor therapy ARB therapy Accurate I's and O's BMI 41/OHS/CLYDE Pulse oximetry monitoring NIPPV therapy Nutrition education Calorie appropriate diet Complicates all aspects of care Tobacco dependence Tobacco cessation education Nicotine replacement therapy The patient voiced understanding on the importance of tobacco use cessation to improve her health The patient identified improvement and inquired about discharge home. I spent 35 minutes in [id number] time with the patient and nursing staff concerning the discharge process. We discussed the admitting diagnoses and hospital course. We discussed identified improvement and the patient's desire to be discharged. We reviewed inpatient studies and imaging. The patient voiced understanding on the importance of follow-up with her primary care provider and specialist(s). The patient plans to be compliant with the medication regimen prescribed and follow-up appointments. She understands that she can return to the emergency department with any sudden changes or concerns. Exam Data for Last 24 hours Vital signs and Labs for Last 24 Hours: Temp Pulse Resp BP Pulse Ox O2 Del Method O2 Flow Rate 98.6 F 71 18 140/75 94 L Room Air 2 12/24/22 11:20 12/24/22 11:20 12/24/22 11:20 12/24/22 11:20 12/24/22 11:20 12/24/22 11:20 12/23/22 08:44 Laboratory Results - last 24 hr 12/22/22 14:35: Urine Color Yellow, Urine Appearance Clear, Urine pH 6.5, Ur Specific Grant 1.010, Urine Protein Negative, Urine Glucose (UA) 3+, Urine Ketones Negative, Urine Blood Negative, Urine Nitrate Negative, Urine Bilirubin Negative, Urine Urobilinogen 0.2, Ur Leukocyte Esterase Negative, Urine RBC None, Urine WBC Occasional, Ur Squamous Epith Cells 3-5, Urine Bacteria Trace 12/23/22 15:50: POC Glucose 226 H 12/23/22 20:08: POC Glucose 224 H 12/24/22 05:25: POC Glucose 178 H 12/24/22 07:40: Sodium 143, Potassium 3.4 L, Chloride 101, Carbon Dioxide 32 H, Anion Gap 13.4, BUN 17 D, Creatinine 1.10 H D, Estimated Creat Clear 47, Estimated GFR 51 L, Est GFR ( Amer) 61 D, Glucose 159 H, Calcium 8.7 I & O for Last 24 hours: Intake & Output 12/21/22 12/22/22 12/23/22 12/24/22 23:59 23:59 23:59 23:59 Intake Total 3131 / 3131 2178 / 2178 Output Total 100 / 100 1 / 1 0 / 0 Balance -100 / 562 3130 / 3130
--- NOTE | 2022-12-26 14:46 | CARE MANAGER ---
Contacted patient related to hospital discharge. Patient had no new medications but has appt. with Dr. Foster already set up. She denies questions or concerns. MARNI Munoz
== END 2022-12-24 12:35 | disposition home or self-care (01) ==
LOC: ER 21:45 → 2ND 21:56
PROVIDERS: Nurse Practitioner Family; Admitting Provider Family Medicine; Emergency Provider Emergency Medicine; PCP Emergency Medicine; Visit Provider Family Medicine
DX: N17.9 Acute kidney failure, unspecified (principal); E86.0 Dehydration; E87.6 Hypokalemia; E83.42 Hypomagnesemia; Z79.899 Other long term (current) drug therapy; E11.9 Type 2 diabetes mellitus without complications; Z79.4 Long term (current) use of insulin; N18.9 Chronic kidney disease, unspecified; I12.9 Hypertensive chronic kidney disease with stage 1 through stage 4 chronic kidney disease, or unspecified chronic kidney disease
CPT/HCPCS: 36415; 80048; 80053; 80061; 81001; 82803; 82962; 83605; 83690; 83735; 84100; 85025; 93005; 99285; G0378; J2405; J3475

== ENCOUNTER → 2023-01-13 09:16 | Outpatient (CLI) | payer OTHER, SELFPAY ==
[2023-01-13 19:46] LABS: Amphetamine/Metha Screen,Urine Negative ng/ml (<1000); Barbiturates Screen,Urine Negative ng/ml (<200)
[2023-01-13 19:47] LABS: Benzodiazepines Screen,Urine Negative ng/ml (<200)
[2023-01-13 19:48] LABS: Cannabinoid Screen,Urine Negative ng/ml (<50); Cocaine Screen,Urine Negative ng/ml (<300)
[2023-01-13 19:49] LABS: Methadone Screen,Urine Negative ng/ml (<300)
[2023-01-13 19:50] LABS: Opiate Screen,Urine Negative ng/ml (<300)
[2023-01-13 19:51] LABS: Phencyclidine Screen,Urine Negative ng/ml (<25)
== END ==
PROVIDERS: PCP Emergency Medicine; Visit Provider Emergency Medicine
DX: F41.9 Anxiety disorder, unspecified (principal)
CPT/HCPCS: 80305

== ENCOUNTER 2023-01-24 17:57 | Emergency (ER) | payer OTHER, SELFPAY ==
--- NOTE | 2023-01-24 17:53 | ECG_ITS ---
APPROVED REPORT Exam: Resting ECG HR:82 bpm ECG Measurements Heart Rate 82 AXES IN 171 P 72 QRSd 99 QRS 4 QT 384 T 56 QTc 422 Conclusion SINUS RHYTHM Isolated q in III BORDERLINE ECG UNCONFIRMED REPORT Electronically signed by : Aniket Martínez MD 01/25/2023 07:53:43
[2023-01-24 17:57] VITALS: BP 172/115; PULSE 76; RESP 20; TEMP 36.6; O2SAT 99; BMI 44.8
[2023-01-24 18:05] VITALS: PULSE 77
--- NOTE | 2023-01-24 18:11 | XR_ITS ---
PROCEDURE INFORMATION: Exam: XR Chest Exam date and time: 01/24/2023 6:34 PM Age: 62 years old Clinical indication: Other: Cp TECHNIQUE: Imaging protocol: Radiologic exam of the chest. Views: 1 view. COMPARISON: CR XR CHEST 2V 04/14/2022 2:51 PM FINDINGS: Tubes, catheters and devices: Extensive apparatus is present over the chest wall which limits study. Lungs: There is mild prominence of the perihilar lung markings which could be related to crowding. Pleural spaces: No evidence of pleural effusion, pneumothorax, or pleural thickening in the visualized pleural spaces. Heart/Mediastinum: Stable cardiac and mediastinal contours. Bones/joints: No evidence of acute osseous abnormalities within the visualized portions of the thoracic spine and ribs. Osseous structures appear appropriate for patient age. Other findings: The examination is limited by under penetration. There is a low level of inspiration. IMPRESSION: No dense parenchymal consolidation, pleural effusion, or pneumothorax.
--- NOTE | 2023-01-24 18:11 | HMH.EDGENADL ---
Discharge Plan Disposition Patient Disposition: Home, Self-Care Chief Complaint: Chest Pain Prescriptions Prescriptions: No Action fluticasone propionate 50 mcg/actuation spray,suspension intranasal ipratropium bromide 21 mcg (0.03 %) spray,non-aerosol intranasal loperamide [Anti-Diarrheal (loperamide)] 2 mg capsule 2 mg PO Q6H PRN (DME) Dexcom G6 Sensor Device See Rx Instructions .Route Qty: 3 0RF Rx Instructions: As directed (DME) Dexcom G6 Deportation Officer Misc See Rx Instructions .Route Qty: 1 0RF Rx Instructions: As directed (DME) Dexcom G6 Transmitter Device See Rx Instructions .Route Qty: 1 0RF Rx Instructions: As directed tramadol 50 mg tablet 50 mg PO TID Qty: 90 2RF clonazepam [Klonopin] 0.5 mg tablet 0.5 mg PO BID Qty: 60 2RF glipizide 10 mg tablet extended release 24hr 10 mg PO BID Qty: 180 2RF bupropion HCl 75 mg tablet See Rx Instructions .ROUTE .COMPLEX Qty: 180 3RF Dose Instruction: TAKE 1 TABLET BY MOUTH TWICE DAILY ; ADMINISTER 6 HOURS APART Rx Instructions: TAKE 1 TABLET BY MOUTH TWICE DAILY ; ADMINISTER 6 HOURS APART esomeprazole magnesium 40 mg capsule,delayed release(DR/EC) See Rx Instructions .ROUTE .COMPLEX Qty: 90 3RF Dose Instruction: TAKE 1 CAPSULE BY MOUTH ONCE DAILY Rx Instructions: TAKE 1 CAPSULE BY MOUTH ONCE DAILY furosemide 80 mg tablet 80 mg PO DAILY Rx Instructions: TAKE ONE TABLET BY MOUTH EVERY DAY FOR FLUID cholecalciferol (vitamin D3) 25 mcg (1,000 unit) tablet 25 mcg PO DAILY atorvastatin [Lipitor] 80 mg tablet 80 mg PO HS aspirin 81 mg tablet,delayed release (DR/EC) 81 mg PO DAILY Rx Instructions: TAKE ONE TABLET BY MOUTH EVERY DAY carvedilol 6.25 mg tablet 6.25 mg PO BID Farxiga 10 mg tablet 10 mg PO DAILY trazodone 50 mg tablet 50 mg PO HS Rx Instructions: TAKE ONE TABLET BY MOUTH EVERY DAY (USUALLY AT BEDTIME) Ozempic 1 mg/dose (4 mg/3 mL) pen injector 1 mg SQ WEEKLY losartan 100 mg tablet 100 mg PO DAILY Rx Instructions: TAKE ONE TABLET BY MOUTH EVERY DAY FOR BLOOD PRESSURE Referrals Follow up/Referrals: Provider,Referral, MD [Primary Care Provider] - See instructions Activity Restrictions/Add. Instructions Additional Instructions/Restrictions: At this time it was felt you are safe to be discharged home. If new or worsening symptoms please do not hesitate to return the emergency department. If symptoms persist please follow-up with your family doctor as you are able. If your chest pain returns please return to the emergency department. Clinical Impressions Clinical Impression: Anxiety, Chest pain Discharge ED Provider: Dae Taylor General Adult HPI General Chief complaint: Chest Pain Stated complaint: CHEST PAIN Time Seen by Provider: 01/24/23 18:01 Mode of Arrival: EMS Source of Information: Patient Limitations: No Limitations Description of Symptoms (Recalled from ER Triage Doc. by RN): per ems upon arrival pt was very emotional and complaining of mid sternal chest pain that radiates to right arm, after getting calmed chest pain seemed to decrease.pt pain level was 2/10 denies any soa, nv/v, dizziness. per ems fbs was 122 History of Present Illness HPI narrative: Patient is a 62-year-old female with past medical history of hypertension, diabetes, COPD, CKD, anxiety who presents emergency department for evaluation of chest pain and anxiety. Patient states that she was made significantly upset by her son and had symptoms of chest pain, heart racing, general anxiety consistent with her previous anxiety attacks. She took an unknown pill that started with a C and called 911 to present here for continued evaluation. Patient states that her symptoms are easing up . Denies shortness of breath, abdominal pain, other acute complaints at this time. Related
[2023-01-24 18:21] LABS: Basophils # 0.1 K/mm3 (0-0.2); Basophils % 0.8 % (0.1-2.0); Eosinophils # 0.2 K/mm3 (0.0-0.4); Eosinophils % 1.6 % (0.1-12.0); Hematocrit 43.8 % (37.0-47.0); Hemoglobin 14.9 g/dL (12.2-16.2); Lymphocytes # 3.5 K/mm3 (0.7-4.5); Lymphocytes % 36.4 % (10-50); Mean Corpuscular Hemoglobin 30.1 pg (27.0-31.2); Mean Corpuscular Volume 88.5 fl (81-99); Mean Platelet Volume 8.4 fl (7.4-10.4); Monocytes # 0.7 K/mm3 (0.1-1.0); Neutrophils # 5.2 K/mm3 (1.8-7.8); Neutrophils % 54.2 % (37.0-80.0); Platelet Count 298 K/mm3 (142-424); Red Blood Count 4.95 M/mm3 (4.20-5.40); Red Cell Distribution Width 15.4 % (11.5-17.5); White Blood Count 9.6 K/mm3 (4.8-10.8)
[2023-01-24 18:26] LABS: Chloride 101 mmol/L (98-107); Sodium 140 mmol/L (136-145)
[2023-01-24 18:29] LABS: Alanine Aminotransferase 35 U/L (12-78); Albumin Level 4.4 g/dl (3.5-5.0); Albumin/Globulin Ratio 1.3 (1.1-1.8); Alkaline Phosphatase 92 U/L (38-126); Aspartate Amino Transferase 37 U/L (14-36); Bilirubin,Total 0.3 mg/dl (0.2-1.3); Blood Urea Nitrogen 12 mg/dl (7-17); Carbon Dioxide 28 mmol/L (22.0-30.0); Creatinine Clearance Estimated 53 mL/min (50-200); Estimated Glomerular Filt Rate 64 ml/min (>60); GFR (African American) 77 ML/MIN (>60); Globulin 3.3 g/dL (1.3-3.2); Total Protein,Serum 7.7 g/dl (6.3-8.2)
[2023-01-24 18:30] LABS: Calcium 9.6 mg/dl (8.4-10.2); Glucose 141 mg/dl (74-100)
[2023-01-24 18:32] VITALS: BP 97/73; PULSE 82; RESP 13; O2SAT 94
[2023-01-24 18:42] LABS: Troponin I < 0.01 ng/ml (0.00-0.034)
--- NOTE | 2023-01-24 18:51 | PC.NURSE ---
Rounded on pt. No needs voiced at this time. Pt resting in bed.
[2023-01-24 19:34] VITALS: BP 119/81; PULSE 81; RESP 18; TEMP 36.7; O2SAT 95
== END 2023-01-24 19:42 | disposition home or self-care (01) ==
PROVIDERS: Emergency Provider Emergency Medicine
DX: R07.9 Chest pain, unspecified (principal); F41.9 Anxiety disorder, unspecified; E11.9 Type 2 diabetes mellitus without complications; F17.210 Nicotine dependence, cigarettes, uncomplicated; J44.9 Chronic obstructive pulmonary disease, unspecified; N18.9 Chronic kidney disease, unspecified; E78.5 Hyperlipidemia, unspecified; G47.33 Obstructive sleep apnea (adult) (pediatric); Z79.85 Long-term (current) use of injectable non-insulin antidiabetic drugs; I12.9 Hypertensive chronic kidney disease with stage 1 through stage 4 chronic kidney disease, or unspecified chronic kidney disease
CPT/HCPCS: 71045; 80053; 84484; 85025; 93005; 96374; 99284

== ENCOUNTER → 2023-03-16 08:58 | Outpatient (CLI) | payer OTHER, SELFPAY ==
[2023-03-16 20:46] LABS: Barbiturates Screen,Urine Negative ng/ml (<200)
[2023-03-16 20:47] LABS: Amphetamine/Metha Screen,Urine Negative ng/ml (<1000); Benzodiazepines Screen,Urine Negative ng/ml (<200)
[2023-03-16 20:48] LABS: Cannabinoid Screen,Urine Negative ng/ml (<50)
[2023-03-16 20:49] LABS: Cocaine Screen,Urine Negative ng/ml (<300); Methadone Screen,Urine Negative ng/ml (<300)
[2023-03-16 20:50] LABS: Opiate Screen,Urine Negative ng/ml (<300); Phencyclidine Screen,Urine Negative ng/ml (<25)
[2023-03-16 20:52] LABS: Creatinine,Urine Random 67 mg/dL (Not Estab.); Microalbumin < 6.000 mg/L (0-16.7)
== END ==
PROVIDERS: PCP Family Medicine; Visit Provider Family Medicine
DX: E11.9 Type 2 diabetes mellitus without complications (principal); Z79.899 Other long term (current) drug therapy; Z79.84 Long term (current) use of oral hypoglycemic drugs; Z79.85 Long-term (current) use of injectable non-insulin antidiabetic drugs
CPT/HCPCS: 80305; 82043; 82570

== ENCOUNTER 2023-10-24 12:26 | Outpatient (CLI) | payer OTHER, SELFPAY ==
--- NOTE | 2023-10-24 12:30 | XR_ITS ---
FINAL REPORT CLINICAL HISTORY: knee pain FINDINGS: AP, lateral and oblique views of the right knee were obtained. There is no prior exam for comparison. There is no acute osseous abnormality of the right knee. Degenerative disease is identified. The soft tissues are normal. There is no joint effusion. IMPRESSION: Degenerative disease without acute osseous abnormality. Reviewed, Interpreted and Dictated by Jessy Castle MD Transcribed by Vidhi Reynolds Authenticated and . [facility]
--- NOTE | 2023-10-24 12:30 | XR_ITS ---
FINAL REPORT CLINICAL HISTORY: knee pain FINDINGS: AP, lateral and oblique views of the left knee were obtained. There is no prior exam for comparison. There is no acute osseous abnormality of the left knee. There is degenerative disease. The soft tissues are normal. Small joint effusion is identified. IMPRESSION: Degenerative disease with small joint effusion. Reviewed, Interpreted and Dictated by Jessy Castle MD Transcribed by Vidhi Reynolds Authenticated and [facility]
== END 2023-10-24 23:59 | disposition home or self-care (01) ==
LOC: RAD 12:28
PROVIDERS: PCP Family Medicine; Visit Provider Family Medicine
DX: M25.561 Pain in right knee (principal); M25.562 Pain in left knee
CPT/HCPCS: 73562

== ENCOUNTER 2024-01-22 11:09 | Outpatient (CLI) | payer OTHER, SELFPAY ==
[2024-01-22 18:33] LABS: Basophils # 0.1 K/mm3 (0-0.2); Eosinophils # 0.2 K/mm3 (0.0-0.4); Eosinophils % 1.6 % (0.1-12.0); Hematocrit 41.2 % (37.0-47.0); Hemoglobin 13.8 g/dL (12.2-16.2); Lymphocytes # 4.1 K/mm3 (0.7-4.5); Lymphocytes % 39.6 % (10-50); Mean Corpuscular HGB Conc 33.5 g/dL (31.8-35.4); Mean Corpuscular Volume 86.5 fl (81-99); Mean Platelet Volume 8.7 fl (7.4-10.4); Monocytes # 0.8 K/mm3 (0.1-1.0); Monocytes % 7.4 % (1.7-9.3); Neutrophils # 5.3 K/mm3 (1.8-7.8); Neutrophils % 50.4 % (37.0-80.0); Platelet Count 263 K/mm3 (142-424); Red Blood Count 4.76 M/mm3 (4.20-5.40); Red Cell Distribution Width 15.9 % (11.5-17.5); White Blood Count 10.4 K/mm3 (4.8-10.8)
[2024-01-22 18:37] LABS: Albumin Level 4.2 g/dl (3.5-5.0); Sodium 137 mmol/L (136-145)
[2024-01-22 18:40] LABS: Alanine Aminotransferase 16 U/L (12-78); Albumin/Globulin Ratio 1.8 (1.1-1.8); Alkaline Phosphatase 96 U/L (38-126); Aspartate Amino Transferase 15 U/L (14-36); Bilirubin,Total 0.5 mg/dl (0.2-1.3); Blood Urea Nitrogen 20 mg/dl (7-17); Carbon Dioxide 28 mmol/L (22.0-30.0); Estimated Glomerular Filt Rate 50 ml/min (>60); GFR (African American) 61 ML/MIN (>60); Globulin 2.4 g/dL (1.3-3.2); Total Protein,Serum 6.6 g/dl (6.3-8.2)
[2024-01-22 18:41] LABS: Calcium 9.5 mg/dl (8.4-10.2); Chol/HDL Ratio 4.8 (1-3.5); Cholesterol 114 mg/dl (140-200); Glucose 67 mg/dl (74-100); HDL Cholesterol 24 mg/dl (40-60); Triglycerides 132 mg/dl (30-150); VLDL Cholesterol 26 mg/dL (0-40)
[2024-01-22 18:56] LABS: 25-OH Vitamin D, Total 54.7 ng/mL (30-100)
[2024-01-23 03:31] LABS: Thyroid Stimulating Hormone 2.66 uIU/mL (0.465-4.68)
[2024-01-23 03:57] LABS: Chloride 102 mmol/L (98-107)
== END 2024-01-22 23:59 | disposition home or self-care (01) ==
LOC: LAB.DROPOF 01-23 11:09
PROVIDERS: PCP Family Medicine; Visit Provider Family Medicine
DX: F41.1 Generalized anxiety disorder (principal); E11.9 Type 2 diabetes mellitus without complications; E55.9 Vitamin D deficiency, unspecified
CPT/HCPCS: 80050; 80053; 80061; 82306; 83036; 84443; 85025

== ENCOUNTER 2024-01-24 13:57 | Outpatient (CLI) | payer OTHER, SELFPAY ==
--- NOTE | 2024-01-24 14:00 | XR_ITS ---
FINAL REPORT CLINICAL HISTORY: right knee pain COMPARISON: None FINDINGS: RIGHT KNEE Three views demonstrate no acute fracture or dislocation. There is advanced medial compartment joint space narrowing. Subchondral sclerosis is noted. There is osteophyte formation. There is a well-corticated ossific density in the posterior joint space measuring 17 mm and a smaller focus anteriorly that measures 4 mm. These are consistent with intra-articular loose bodies. No acute soft tissue abnormality is seen. IMPRESSION: Advanced degenerative changes without acute bony abnormality. Reviewed, Interpreted and Dictated by David Kolb MD Transcribed by Isela Musa Authenticated and . [facility]
--- NOTE | 2024-01-24 14:00 | XR_ITS ---
FINAL REPORT CLINICAL HISTORY: left knee pain COMPARISON: None FINDINGS: LEFT KNEE Three views demonstrate no acute fracture or dislocation. There is moderately advanced medial compartment joint space narrowing. There are prominent osteophytes at the medial joint margin and small osteophytes along the undersurface of the patella. No acute soft tissue abnormality is seen. IMPRESSION: Moderately advanced degenerative change without acute bony abnormality. Reviewed, Interpreted and Dictated by David Kolb MD Transcribed by Isela Musa Authenticated and [facility]
== END 2024-01-24 23:59 | disposition home or self-care (01) ==
LOC: RAD 13:58
PROVIDERS: PCP Family Medicine; Visit Provider Physician Assistant
DX: M25.561 Pain in right knee (principal); M25.562 Pain in left knee
CPT/HCPCS: 73562

== ENCOUNTER 2024-01-29 21:08 | Emergency (ER) | payer OTHER, SELFPAY ==
[2024-01-29 21:09] VITALS: BP 138/72; PULSE 91; RESP 21; TEMP 36.8; O2SAT 95; BMI 41.5
--- NOTE | 2024-01-29 21:34 | XR_ITS ---
PROCEDURE INFORMATION: Exam: XR Right Shoulder Exam date and time: 01/29/2024 9:50 PM Age: 63 years old Clinical indication: Pain; Shoulder; Right; Additional info: Pain with rotation TECHNIQUE: Imaging protocol: Radiologic exam of the right shoulder. Views: 2 or more views. COMPARISON: CT SHOULDER RT W CON 09/05/2019 2:00 AM FINDINGS: Bones/joints: Normal. Soft tissues: Surgical clips are seen in the soft tissues over the deltoid region. IMPRESSION: No visible acute fractures or malalignment.
--- NOTE | 2024-01-29 21:34 | XR_ITS ---
PROCEDURE INFORMATION: Exam: XR Right Scapula Exam date and time: 01/29/2024 9:52 PM Age: 63 years old Clinical indication: Pain; Shoulder; Right; Additional info: Pain after moving furniture TECHNIQUE: Imaging protocol: Radiologic exam of the right scapula. Complete exam. COMPARISON: CR Shoulder R 01/29/2024 9:50 PM FINDINGS: Bones/joints: Normal. Soft tissues: Normal. IMPRESSION: No acute findings.
[2024-01-29] MEDS: IBUPROFEN 600 MG TABLET PO (21:42)
[2024-01-29] MEDS: ACETAMINOPHEN 500MG TAB 1000 MG PO (21:42)
[2024-01-29] MEDS: LIDOCAINE 5% TRANSDERMAL PATCH 1 EACH TP (21:42)
--- NOTE | 2024-01-29 21:59 | PC.NURSE ---
pt to xray
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
[2024-01-29 22:53] VITALS: BP 130/75; PULSE 80; RESP 20; TEMP 36.8; O2SAT 96
== END 2024-01-29 22:54 | disposition home or self-care (01) ==
PROVIDERS: Emergency Provider Emergency Medicine; PCP Family Medicine
DX: S46.001A Unspecified injury of muscle(s) and tendon(s) of the rotator cuff of right shoulder, initial encounter (principal); M25.511 Pain in right shoulder; R06.02 Shortness of breath; X50.0XXA Overexertion from strenuous movement or load, initial encounter; Y93.89 Activity, other specified; Y92.003 Bedroom of unspecified non-institutional (private) residence as the place of occurrence of the external cause
CPT/HCPCS: 73010; 73030; 99283

== ENCOUNTER 2024-06-06 10:30 | Outpatient (CLI) | payer OTHER, SELFPAY | END 2024-06-06 23:59 | disposition home or self-care (01) | LOC: RAD 10:31 | PROVIDERS: PCP Family Medicine; Visit Provider Family Medicine | DX: Z12.31 Encounter for screening mammogram for malignant neoplasm of breast (principal) | CPT/HCPCS: 77063; 77067 ==

== ENCOUNTER 2024-07-09 21:54 | Emergency (ER) | payer OTHER, SELFPAY ==
[2024-07-09 22:03] VITALS: BP 122/81; PULSE 75; RESP 16; TEMP 37.1; O2SAT 98; BMI 43.5
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
[2024-07-09 23:13] VITALS: BP 132/87; PULSE 87; RESP 18; TEMP 36.7; O2SAT 99
== END 2024-07-09 23:17 | disposition home or self-care (01) ==
PROVIDERS: Emergency Provider Emergency Medicine; PCP Family Medicine
DX: L72.3 Sebaceous cyst (principal)
CPT/HCPCS: 99282

== ENCOUNTER 2024-07-25 09:51 | Outpatient (CLI) | payer OTHER, SELFPAY ==
--- NOTE | 2024-07-25 10:00 | US_ITS ---
FINAL REPORT CLINICAL HISTORY: .pt felt lump at area of prev lipoma surgical scar FINDINGS: ULTRASOUND SOFT TISSUES OF THE BACK Limited sonographic images of the soft tissues of the back were obtained. At the site of the clinical abnormality and adjacent to the prior surgical site, there is a small subcutaneous hypoechoic focus measuring 1.4 cm. There is increased vascularity associated with this lesion. It is unclear if this is related to hypervascular granulation tissue or separate mass lesion. IMPRESSION: 1.4 cm hypoechoic hypervascular area corresponding to the clinical abnormality. MRI could better characterize. Reviewed, Interpreted and Dictated by David Kolb MD Transcribed by Navya Alicea Authenticated and [facility]
== END 2024-07-25 23:59 | disposition home or self-care (01) ==
LOC: RAD 09:52
PROVIDERS: PCP Family Medicine; Visit Provider Surgery
DX: R93.89 Abnormal findings on diagnostic imaging of other specified body structures (principal); L98.9 Disorder of the skin and subcutaneous tissue, unspecified
CPT/HCPCS: 76604

== ENCOUNTER 2024-08-13 11:11 | Outpatient (CLI) | payer OTHER, SELFPAY ==
--- NOTE | 2024-08-13 11:49 | ECG_ITS ---
APPROVED REPORT Exam: Resting ECG HR:63 bpm ECG Measurements Heart Rate 63 AXES AK 203 P 51 QRSd 85 QRS -20 QT 399 T 49 QTc 407 Conclusion SINUS RHYTHM LOW QRS VOLTAGE IN PRECORDIAL LEADS [QRS DEFLECTION < 1.0 mV IN CHEST LEADS] PATTERN CONSISTENT WITH PULMONARY DISEASE ABNORMAL ECG UNCONFIRMED REPORT Electronically signed by : Aniket Martínez MD 08/14/2024 08:08:52
[2024-08-13 12:04] LABS: Basophils # 0.1 K/mm3 (0-0.2); Basophils % 0.6 % (0.1-2.0); Eosinophils # 0.1 Kmm3 (0.0-0.4); Eosinophils % 1.1 % (0.1-12.0); Hematocrit 38.5 % (37.0-47.0); Hemoglobin 12.7 g/dL (12.2-16.2); Immature Granulocytes # 0.03 10^3uL; Immature Granulocytes % 0.3 %; Lymphocytes # 3.6 K/mm3 (0.7-4.5); Lymphocytes % 41.5 % (10-50); Mean Corpuscular Hemoglobin 28.4 pg (27.0-31.2); Mean Corpuscular Volume 86.1 fl (81-99); Monocytes # 0.7 K/mm3 (0.1-1.0); Monocytes % 7.5 % (1.7-9.3); Neutrophils # 4.3 K/mm3 (1.8-7.8); Nucleated Red Blood Cells # 0 10^3/uL; Nucleated Red Blood Cells % 0 %; Platelet Count 248 K/mm3 (142-424); Red Blood Count 4.47 M/mm3 (4.20-5.40); Red Cell Distribution Width 15.4 % (11.5-17.5); Red Cell Distribution Width-SD 48.6 fL; White Blood Count 8.7 K/mm3 (4.8-10.8)
[2024-08-13 12:10] LABS: Chloride 103 mmol/L (98-107); Potassium 3.5 mmoL/L (3.5-5.1); Sodium 140 mmol/L (136-145)
[2024-08-13 12:13] LABS: Blood Urea Nitrogen 16 mg/dl (7-17); Estimated Glomerular Filt Rate 56 ml/min (>60); GFR (African American) 68 ML/MIN (>60)
[2024-08-13 12:14] LABS: Anion Gap 9.5 mEq/L (5-15); Calcium 9.4 mg/dl (8.4-10.2); Carbon Dioxide 31 mmol/L (22.0-30.0); Glucose 87 mg/dl (74-100)
== END 2024-08-13 23:59 | disposition home or self-care (01) ==
LOC: PREOP 11:12
PROVIDERS: PCP Family Medicine; Visit Provider Surgery
DX: Z01.810 Encounter for preprocedural cardiovascular examination (principal); J98.4 Other disorders of lung; R22.2 Localized swelling, mass and lump, trunk
CPT/HCPCS: 80048; 85025; 93005

== ENCOUNTER 2024-08-22 06:48 | Day surgery (SDC) | payer OTHER, SELFPAY ==
[2024-08-13 12:42] VITALS: BMI 42.4
[2024-08-22] VITALS (10 sets, daily range): BP systolic 101–134; BP diastolic 59–91; PULSE 65–84; RESP 16–20; TEMP 36.3–36.6; O2SAT 90–100
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
[2024-08-22] MEDS: CEFAZOLIN SODIUM 2 GM in 0.9 % SODIUM CHLORIDE 100 ML IV (07:57)
[2024-08-22] MEDS: LIDOCAINE 1% 20ML MDV 20 ML (08:15)
--- NOTE | 2024-08-22 09:07 | EXP.OP.NOTE ---
Date of procedure: 08/22/24 Pre-op Diagnosis:: Complex recurrent 1.4 cm (per ultrasound) lipoma with surrounding seroma (mid back) Post-op Diagnosis:: 10.5 cm lobulated mid back lipoma Procedure performed:: Excision of 10.5 cm lobulated mid back lipoma Surgeon:: Zaid Zimmerman MD Anesthesia: LMA Estimated blood loss (mL): 10 Operative findings:: Complex lobulated 10.5 cm mid back lipoma (just medial to prior excised lipoma) Operative note:: After informed consent was obtained the patient was taken to the operating room and placed in the supine position after general anesthesia was induced. Her back was prepped and draped in a sterile fashion. After infiltration with local anesthetic an elliptical incision was made around the palpable lesion. A combination of sharp dissection, blunt dissection, and electrocautery was utilized to transect through the deeper subcutaneous tissue. A lobulated complex 10.5 cm fatty tumor was excised from surrounding tissue and passed off for pathologic evaluation. Dissection was taken to the fascial margin. Electrocautery was utilized to achieve hemostasis. Skin was reapproximated with interrupted 4-0 nylon in a mattress fashion. Dressings were applied and the patient was transferred to recovery in stable condition. Condition: stable Disposition: PACU Specimens:: Mid back lipoma Complications:: No immediate
--- NOTE | 2024-08-22 09:19 | P.PNANES_ITS ---
[facility] Anesthesia Record Part I Anesthesia Record I Intake, IV Amount: 800 Hydration: Adequate Estimated blood loss (mL): 5 Urine output (mL): 0 Blood Products used (#): none Blood Pressure: 134/82 SaO2: 94 Pulse Rate: 76 Airway Patency: Patent Respiratory Rate: 18 Temperature: 97.7 F Patient is:: Awake, Mask O2 and Stable Stable to PACU at:: 09:22
[2024-08-22 09:22] LABS: POC Glucose,Bedside 111 (70-110)
--- NOTE | 2024-08-22 09:49 | SUR.PHASEI ---
Patient vital signs stable and no C/O pain. Blood glucose was 111 and patient tolerating drinking water. Dressing clean,dry and intact. Patient transported to post op, report given to MARNI Alcaraz.
--- NOTE | 2024-08-22 13:34 | EXP.ANES.II ---
[facility] Anesthesia Record Part II Anesthesia Record Part II Discharge Time: 09:42 Destination: Surgical Day Care (OP Surgery) PACU nurse assessment reviewed?: Yes Patient Condition:: Good Anesthesia Complications:: None Swallowing reflex intact?: Yes Airway Patency: Patent Cyanosis?: No Blood Pressure: 117/77 SaO2: 94 Respiratory Rate: 17 Pulse Rate: 70 Temperature: 97.7 F Mental Status: Alert & Oriented Pain level:: 0 Nausea and/or vomitting:: None Intake, IV Amount: 0 Hydration: Adequate
[2024-08-23 12:26] LABS: POC Glucose,Bedside 129 (70-110)
== END 2024-08-22 10:15 | disposition home or self-care (01) ==
PROVIDERS: PCP Family Medicine; Visit Provider Surgery
PROC: (CPT 21931; principal; 2024-08-22 08:15)
DX: D17.1 Benign lipomatous neoplasm of skin and subcutaneous tissue of trunk (principal)
CPT/HCPCS: 21931; 82962; J0690; J1100; J2250; J2405; J3010

== ENCOUNTER 2024-09-18 13:32 | Outpatient (CLI) | payer OTHER, SELFPAY ==
--- OUTSIDE RECORDS SUMMARY | 2024-09-18 13:36 | XMS_ITS | Clinical Summary ---
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 Role Phone Aniket Martínez MD Primary Care Provider [phone] Family History Medical History Relation Name Comments Diabetes Father Heart attack Father Hypertension Father Conversions - Other Mother scarlet fever Diabetes Mother Bone cancer Other 1 Family history of bone cancer Lung cancer Other 2 FH: lung cancer Relation Name Status Comments Father Mother Other 1 Other 2 Social History Tobacco Use Types Packs/Day Years Used Date Smoking Tobacco: Every Day Alcohol Use Standard Drinks/Week Comments No 0 (1 standard drink = 0.6 oz pure alcohol) Alcoholic Drinks/day: Denies alcohol consumption Comments Unknown Sex and Gender Information Value Date Recorded Sex Assigned at Not on file Legal Sex Female 8:33 PM EDT Gender Identity Not on file Sexual Orientation Not on file Last Filed Vital Signs Vital Sign Reading Time Taken Comments Blood Pressure 91/50 05/22/2018 11:02 AM EST Pulse 73 05/22/2018 11:02 AM EST Temperature 36.3 C (97.3 F) 05/22/2018 11:02 AM EST Respiratory Rate 16 05/22/2018 11:02 AM EST Oxygen Saturation - - Inhaled Oxygen Concentration - - Weight 124 kg (272 lb 8.2 oz) 05/22/2018 11:02 A M EST Height 157.5 cm (5' 2 ) 05/22/2018 11:02 AM EST Body Mass Index 49.84 05/22/2018 11:02 AM EST Plan of Treatment Health Maintenance Due Date Last Done Comments [facility]-Depression Screening 1962 [facility]-/Child/Adol SDOH Screenings 1960 [facility]- SDOH Screenings 02/13/1980 [facility]-Adult SDOH Screenings 02/13/1980 [facility]-DTaP,Tdap,and Td Vaccine s (1 - Tdap) 1981 [facility]-Pap Smear 1983 [facility]-Cervical Cancer Screening 02/13/1992 [facility]-HPV/Cotest 02/13/1992 CT Colonography 2007 Colonoscopy 2007 FIT-DNA 2007 FIT 2007 FOBT 2007 Sigmoidoscopy 2007 [facility]-Colorectal Cancer Screening 2007 [facility]-Pneumococcal Vaccine: 50 + Years (1 of 1 - PCV) 02/13/2012 [facility]-Zoster Vaccines (1 of 2) 02/13/2012 [id number] Vaccine (3 - 2023- season) 2023 07/29/2020, 07/01/2020 [facility]-Influenza Vaccine (Seas[place] n Ended) 2024 02/21/2022, 04/22/2020, 01/27/2017 [facility]-RSV Vaccine: 60+ Years o r (1 - 1-dose 75+ series) 2037 HPV Vaccines Aged Out No longer eligi ble based on patient's age to complete this topic [facility]-HIB Vaccines Aged Out No longer e ligible based on patient's age to complete this topic [facility]-Hepatitis A Vaccines Aged Out No longer eligible based on patient's age to complete this topic [facility]-IPV Vaccines Aged Out No longer e ligible based on patient's age to complete this topic [facility]-Rotavirus Vaccines Aged Out No lo nger eligible based on patient's age to [place] [address] [place] [address] [employer] [facility] MEDICA[employer] Care Teams Veneer Drier Tailer Relationship Specialty Start Date End Date Aniket Martínez MD [address] [place] [address] [place] [id number] PCP - General 08/21/20
--- NOTE | 2024-09-18 14:00 | CT_ITS ---
FINAL REPORT TECHNIQUE: Thin section axial images were obtained from the lung apices to the upper abdomen by computed tomography. Reformatted images were obtained and reviewed. This study was performed with techniques to keep radiation doses al low as reasonably achievable (ALARA). Individualized dose reduction techniques using automated exposure control or adjustment of mA and/or kV according to the patient's size were employed. CLINICAL HISTORY: lung cancer screening current smoker 1/2ppd x35 years COMPARISON: None FINDINGS: CHEST CT LOW DOSE 64-year-old female, current smoker, [id number] history. CTDI vol (mGy): 2.90 DLP (mGy-cm): 100.29 There is no axillary adenopathy. There is no mediastinal or hilar mass or adenopathy. There are densely calcified subcarinal and left hilar nodes present. Calcified granulomas are present in the left upper lobe and left lower lobe. The heart is normal in size. There is no pericardial or pleural effusion. There is mild emphysema and mild pulmonary scarring. Lung window images demonstrate no suspicious infiltrate or nodule. Limited images of the upper abdomen demonstrate a prior cholecystectomy.. IMPRESSION: Lung-RADS category 1. Recommend 12 month follow up low dose chest CT. Reviewed, Interpreted and Dictated by David Kolb MD Transcribed by Rosa Vazquez Authenticated and . [facility]
== END 2024-09-18 23:59 | disposition home or self-care (01) ==
LOC: RAD 13:33
PROVIDERS: PCP Family Medicine; Visit Provider Family Medicine
DX: Z12.2 Encounter for screening for malignant neoplasm of respiratory organs (principal); J43.9 Emphysema, unspecified; J84.10 Pulmonary fibrosis, unspecified; J98.4 Other disorders of lung; F17.210 Nicotine dependence, cigarettes, uncomplicated
CPT/HCPCS: 71271

== ENCOUNTER 2024-09-18 21:51 | Emergency (ER) | payer OTHER, SELFPAY ==
[2024-09-18 22:22] VITALS: BP 128/80; PULSE 79; RESP 18; TEMP 36.8; O2SAT 98; BMI 43.9
--- OUTSIDE RECORDS SUMMARY | 2024-09-18 22:29 | XMS_ITS | Clinical Summary ---
Author Organization Healthcare Address [address] [place] [address] Care Team Providers Care After School Caregiver Name Role Phone Aniket Martínez MD Primary Care Provider [phone] Family History Medical History Relation Name Comments [...] 02/13/2012 UKY-Zoster Vaccines (1 of 2) 02/13/2012 [id number] Vaccine (3 - 2023- season) 2023 07/29/2020, [...] [place] [address] AETNA [facility] MEDICAID Care Teams After School Caregiver Relationship Specialty Start Date End Date Aniket Martínez MD [address] [place] [address] [place] [id number] PCP - General 08/21/20
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
[2024-09-18] MEDS: AMOXICILLIN/CLAVULANATE POTASSIUM 875/125MG TABLET 1 EACH PO (23:10)
[2024-09-18] MEDS: ACETAMINOPHEN 500MG TAB 1000 MG PO (23:10)
[2024-09-18] MEDS: IBUPROFEN 400 MG TABLET PO (23:10)
[2024-09-18] MEDS: NEOMYCIN-POLYMYXIN-HC OTIC SUSP 10ML 10 ML OT (23:10)
[2024-09-18 23:16] VITALS: BP 114/75; PULSE 73; RESP 16; TEMP 36.9; O2SAT 94
== END 2024-09-18 23:17 | disposition home or self-care (01) ==
PROVIDERS: Emergency Provider Emergency Medicine; PCP Family Medicine
DX: H60.91 Unspecified otitis externa, right ear (principal); R51.9 Headache, unspecified
CPT/HCPCS: 99283

== ENCOUNTER 2024-09-20 13:06 | Outpatient (CLI) | payer OTHER, SELFPAY ==
[2024-09-20 18:39] LABS: Creatinine,Urine Random 137 mg/dL (Not Estab.); Microalbumin < 6.000 mg/L (0-16.7)
[2024-09-20 18:47] LABS: Anion Gap 13.5 mEq/L (5-15); Blood Urea Nitrogen 11 mg/dl (7-17); Carbon Dioxide 26 mmol/L (22.0-30.0); Chloride 99 mmol/L (98-107); Estimated Glomerular Filt Rate 63 ml/min (>60); GFR (African American) 77 ML/MIN (>60); Glucose 93 mg/dl (74-100); Potassium 3.5 mmoL/L (3.5-5.1); Sodium 135 mmol/L (136-145)
[2024-09-20 19:46] LABS: Hepatitis C Ab Qual. W/ RFX NEGATIVE (Negative)
[2024-09-20 22:11] LABS: HIV Combo NEGATIVE (Negative)
--- OUTSIDE RECORDS SUMMARY | 2024-09-20 22:57 | XMS_ITS | Clinical Summary ---
Author Organization Healthcare Address [address] [place] [address] Care Team Providers Care Securities Attorney Name Role Phone Aniket Martínez MD Primary Care Provider [phone] Family History Medical History Relation Name Comments [...] 02/13/2012 UKY-Zoster Vaccines (1 of 2) 02/13/2012 [id number] Vaccine (3 - 2023- season) 2023 07/29/2020, [...] [place] [address] AETNA [facility] MEDICAID Care Teams Securities Attorney Relationship Specialty Start Date End Date Aniket Martínez MD [address] [place] [address] [place] [id number] PCP - General 08/21/20
[2024-09-22 09:16] LABS: Hepatitis B Surface Antigen Negative (Negative)
== END 2024-09-20 23:59 | disposition home or self-care (01) ==
LOC: LAB.DROPOF 22:56
PROVIDERS: PCP Family Medicine; Visit Provider Family Medicine
DX: Z11.59 Encounter for screening for other viral diseases (principal); E11.9 Type 2 diabetes mellitus without complications
CPT/HCPCS: 80048; 82043; 82570; 86803; 87340; 87389

== ENCOUNTER 2024-12-24 09:33 | Day surgery (SDC) | payer OTHER, SELFPAY ==
[2024-12-18 14:53] VITALS: BMI 43.0
[2024-12-24] VITALS (8 sets, daily range): BP systolic 96–117; BP diastolic 59–74; PULSE 61–70; RESP 16–20; TEMP 36.1–36.2; O2SAT 92–95
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
--- NOTE | 2024-12-24 09:52 | HMH.SCOPE ---
Procedure: Date: 12/24/24 Patient Date of :: 1960 Procedure Performed:: Colonoscopy with polypectomy and excision of perianal tag Indications:: Perianal lesion (likely senescent tag) Screening colonoscopy Performing Provider:: Zaid Zimmerman MD Referring Provider:: . Sedation:: Monitored anesthesia care Procedure:: After informed consent was obtained the patient was taken to the endoscopy suite. Sedation ensued after the patient was transferred to the left lateral decubitus position. Pulse, blood pressure, and oxygen saturation were monitored throughout the procedure. Digital rectal exam revealed no significant abnormality. The colonoscope was placed in position. The entire colon was evaluated. The colonoscope was carefully removed and the patient was transferred to recovery in stable condition. Please see findings and specimens below for detail. Findings:: Bowel preparation moderate to poor Profound spasticity/lack of relaxation Significant tortuosity Fairly severe sigmoid diverticulosis Complex polyps (see specimens) Senescent perianal tag Note: Large complex right colon polyp excised via hot snare and tattoo placed distally Specimens:: Large complex lobulated sessile polyp of the right colon (hot snare and tattoo) Polyp at 50 cm (hot snare) Lobulated partially-pedunculated polyp at 40 cm (hot snare) Large complex perianal tag (hot snare) Recommendations:: Timing of repeat colonoscopy is pending pathology will likely be between 3-6 months with extended/alternate bowel preparation. Consider barium enema secondary to profound spasticity/lack of relaxation. Consider gastroenterology consultation secondary to likely chronic constipation. If gastroenterology consultation completed, repeat colonoscopy will be deferred to their service. Complications:: No immediate Estimated blood obtained (mL): 1 Colonoscopy Component Colonoscopy Component Was a colonoscopy performed during today's procedure?: Yes Recommended follow up colonoscopy of at least 10 years?: No If no, follow up colonoscopy recommended in ___ years?: (See above) Reason for not recommending >/= 10 yr follow-up interval?: (See above)
[2024-12-24 10:07] LABS: POC Glucose,Bedside 87 gm/dL (70-110)
[2024-12-24] MEDS: LACTATED RINGERS 1000ML 1,000 ML 50 ML IV (10:15)
== END 2024-12-24 13:24 | disposition home or self-care (01) ==
PROVIDERS: PCP Family Medicine; Visit Provider Surgery
PROC: 0DJD8ZZ Inspection of Lower Intestinal Tract, Via Natural or Artificial Opening Endoscopic (ICD-10-PCS; CPT 45385; principal; 2024-12-24 11:00)
DX: Z12.11 Encounter for screening for malignant neoplasm of colon (principal); D12.2 Benign neoplasm of ascending colon; D23.9 Other benign neoplasm of skin, unspecified; K62.89 Other specified diseases of anus and rectum; F17.210 Nicotine dependence, cigarettes, uncomplicated; E78.5 Hyperlipidemia, unspecified; I10 Essential (primary) hypertension; Z90.49 Acquired absence of other specified parts of digestive tract; Z79.82 Long term (current) use of aspirin; N90.89 Other specified noninflammatory disorders of vulva and perineum; K57.30 Diverticulosis of large intestine without perforation or abscess without bleeding
CPT/HCPCS: 45385; 82962; J2003; J2704; J7120

== ENCOUNTER 2025-01-28 09:45 | Outpatient (CLI) | payer OTHER, SELFPAY ==
[2025-01-28 19:35] LABS: Albumin Level 4.1 g/dl (3.5-5.0); Chloride 97 mmol/L (98-107); Potassium 3.7 mmoL/L (3.5-5.1); Sodium 142 mmol/L (136-145)
[2025-01-28 19:38] LABS: Alanine Aminotransferase 22 U/L (12-78); Albumin/Globulin Ratio 1.5 (1.1-1.8); Alkaline Phosphatase 98 U/L (38-126); Anion Gap 13.7 mEq/L (5-15); Aspartate Amino Transferase 15 U/L (14-36); Bilirubin,Total 0.4 mg/dl (0.2-1.3); Blood Urea Nitrogen 16 mg/dl (7-17); Calcium 9.4 mg/dl (8.4-10.2); Carbon Dioxide 35 mmol/L (22.0-30.0); Creatinine,Serum 1.00 mg/dl (0.52-1.04); Estimated Glomerular Filt Rate 56 ml/min (>60); GFR (African American) 68 ML/MIN (>60); Globulin 2.7 g/dL (1.3-3.2); Glucose 88 mg/dl (74-100); Total Protein,Serum 6.8 g/dl (6.3-8.2)
--- OUTSIDE RECORDS SUMMARY | 2025-01-30 09:53 | XMS_ITS | Clinical Summary ---
Author Organization Healthcare Address [address] [place] [address] Care Team Providers Care Water Chemist Name Role Phone Aniket Martínez MD Primary Care Provider [phone] Family History Medical History Relation Name Comments [...] 02/13/2012 UKY-Zoster Vaccines (1 of 2) 02/13/2012 [id number] Vaccine (3 - 2024- season) 2024 07/29/2020, 07/01/2020 UKY-Influenza Vaccine (#1) 12/09/202402/21, 04/22/2020, 01/27/2017 UKY-RSV Vaccine: 60+ Years o [...] [place] [address] [facility] MEDICAID Care Teams Water Chemist Relationship Specialty Start Date End Date Aniket Martínez MD [address] [address] [place] [id number] PCP - General 08/21/20
[2025-01-30 19:25] LABS: Hematocrit 41.0 % (37.0-47.0); Hemoglobin 13.2 g/dL (12.2-16.2); Immature Granulocytes % 0.5 %; Mean Corpuscular HGB Conc 32.2 g/dL (31.8-35.4); Mean Corpuscular Hemoglobin 28.3 pg (27.0-31.2); Mean Corpuscular Volume 88.0 fl (81-99); Nucleated Red Blood Cells % 0 %; Platelet Count 291 K/mm3 (142-424); Red Blood Count 4.66 M/mm3 (4.20-5.40); Red Cell Distribution Width-SD 49.0 fL; White Blood Count 10.9 K/mm3 (4.8-10.8)
[2025-01-30 20:24] LABS: Hemoglobin A1C 5.7 % (4.0-6.0)
== END 2025-01-28 23:59 ==
LOC: LAB.DROPOF 01-30 09:46
PROVIDERS: PCP Family Medicine; Visit Provider Family Medicine
DX: E11.9 Type 2 diabetes mellitus without complications (principal)
CPT/HCPCS: 80053; 83036; 85025

== ENCOUNTER 2025-01-30 15:24 | Outpatient (CLI) | payer OTHER, SELFPAY ==
[2025-01-30 19:25] LABS: Hematocrit 41.0 % (37.0-47.0); Hemoglobin 13.2 g/dL (12.2-16.2); Immature Granulocytes % 0.5 %; Mean Corpuscular HGB Conc 32.2 g/dL (31.8-35.4); Mean Corpuscular Hemoglobin 28.3 pg (27.0-31.2); Mean Corpuscular Volume 88.0 fl (81-99); Nucleated Red Blood Cells % 0 %; Platelet Count 291 K/mm3 (142-424); Red Blood Count 4.66 M/mm3 (4.20-5.40); Red Cell Distribution Width-SD 49.0 fL; White Blood Count 10.9 K/mm3 (4.8-10.8)
[2025-01-30 20:24] LABS: Hemoglobin A1C 5.7 % (4.0-6.0)
--- OUTSIDE RECORDS SUMMARY | 2025-01-31 09:43 | XMS_ITS | Clinical Summary ---
Author Organization Healthcare Address [address] [place] [address] Care Team Providers Care Application Counselor Name Role Phone Aniket Martínez MD Primary Care Provider [phone] Family History Medical History Relation Name Comments [...] 02/13/2012 UKY-Zoster Vaccines (1 of 2) 02/13/2012 [id number] Vaccine (3 - 2024- season) 2024 07/29/2020, [...] [place] [address] [facility] MEDICAID Care Teams Application Counselor Relationship Specialty Start Date End Date Aniket Martínez MD [address] [place] [place] [id number] PCP - General 08/21/20
== END 2025-01-30 23:59 | disposition home or self-care (01) ==
LOC: LAB.DROPOF 01-31 09:40
PROVIDERS: PCP Family Medicine; Visit Provider Family Medicine
DX: E11.9 Type 2 diabetes mellitus without complications (principal)
CPT/HCPCS: 83036; 85025

== ENCOUNTER 2025-04-01 19:22 | Emergency (ER) | payer OTHER, SELFPAY ==
[2025-04-01 19:28] VITALS: BP 131/76; PULSE 72; PULSE 81; RESP 18; TEMP 36.8; O2SAT 97; BMI 45.3
--- NOTE | 2025-04-01 19:29 | ECG_ITS ---
APPROVED REPORT Exam: Resting ECG HR:76 bpm ECG Measurements Heart Rate 76 AXES VA 184 P 46 QRSd 81 QRS -14 QT 368 T 49 QTc 398 Conclusion Normal sinus rhythm without acute ST or T wave changes concerning for ischemia Electronically signed by : Francesca Anthony, 04/02/2025 01:06:39
--- OUTSIDE RECORDS SUMMARY | 2025-04-01 19:35 | XMS_ITS | Clinical Summary ---
Author Organization Healthcare Address [address] [place] [id number] Care Team Providers Care Home Care Rn Name Role Phone Aniket Martínez MD Primary Care Provider [phone] Family History Medical History Relation Name Comments [...] 02/13/2012 UKY-Zoster Vaccines (1 of 2) 02/13/2012 [id number] Vaccine (3 - 2024- season) 2024 07/29/2020, 07/01/2020 UKY-Influenza Vaccine (#1) 12/09/202402/21, 04/22/2020, 01/27/2017 UKY-RSV Vaccine: 60+ Years o r (1 - 1-dose 75+ series) 2037 HPV Vaccines (No Doses Required) Completed UKY-HIB Vaccines Aged Out No longer e [...] age to [place] [address] [place] [address] [facility] MEDICAID Care Teams Home Care Rn Relationship Specialty Start Date End Date Aniket Martínez MD [facility] [id number] PCP - General 08/21/20
--- NOTE | 2025-04-01 19:36 | XR_ITS ---
PROCEDURE INFORMATION: Exam: XR Chest Exam date and time: 04/01/2025 7:33 PM Age: 65 years old Clinical indication: Pain; Chest pressure; Additional info: Chest pain TECHNIQUE: Imaging protocol: Radiologic exam of the chest. Views: 2 views. COMPARISON: CT LUNG SCREENING 09/18/2024 1:36 PM FINDINGS: Lungs: No focal consolidation. Stable scattered calcified granulomas. Pleural spaces: No pleural effusion. No pneumothorax. Heart/Mediastinum: The cardiac silhouette is normal in size. The mediastinal and hilar contours are normal. Bones/joints: Unremarkable. IMPRESSION: No acute cardiopulmonary findings.
[2025-04-01] MEDS: ASPIRIN 81MG CHEWABLE TABLET 162 MG PO (19:41)
[2025-04-01] MEDS: BELLADONNA ALKALOIDS 60 ML ML PO (19:41)
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
[2025-04-01 19:42] LABS: Hematocrit 42.7 % (37.0-47.0); Hemoglobin 14.3 g/dL (12.2-16.2); Immature Granulocytes % 0.4 %; Mean Corpuscular HGB Conc 33.5 g/dL (31.8-35.4); Mean Corpuscular Hemoglobin 29.4 pg (27.0-31.2); Mean Corpuscular Volume 87.7 fl (81-99); Nucleated Red Blood Cells % 0 %; Platelet Count 301 K/mm3 (142-424); Red Blood Count 4.87 M/mm3 (4.20-5.40); Red Cell Distribution Width-SD 47.4 fL; White Blood Count 11.1 K/mm3 (4.8-10.8)
[2025-04-01 19:50] LABS: Alanine Aminotransferase 24 U/L (12-78); Albumin Level 4.9 g/dl (3.5-5.0); Albumin/Globulin Ratio 1.8 (1.1-1.8); Alkaline Phosphatase 87 U/L (38-126); Anion Gap 11.3 mEq/L (5-15); Aspartate Amino Transferase 24 U/L (14-36); Bilirubin,Total 0.6 mg/dl (0.2-1.3); Blood Urea Nitrogen 19 mg/dl (7-17); Calcium 9.4 mg/dl (8.4-10.2); Carbon Dioxide 30 mmol/L (22.0-30.0); Chloride 100 mmol/L (98-107); Creatinine Clearance Estimated 41 mL/min (50-200); Creatinine,Serum 1.10 mg/dl (0.52-1.04); Estimated Glomerular Filt Rate 50 ml/min (>60); GFR (African American) 61 ML/MIN (>60); Globulin 2.8 g/dL (1.3-3.2); Glucose 73 mg/dl (74-100); INR 1.02 (0.9-1.1); Potassium 3.3 mmoL/L (3.5-5.1); Prothrombin Time 11.3 seconds (10.1-12.5); Sodium 138 mmol/L (136-145); Total Protein,Serum 7.7 g/dl (6.3-8.2)
[2025-04-01 19:52] LABS: Lipase 1003 U/L (23-300)
[2025-04-01 19:58] LABS: D-Dimer 0.73 ug/mL (0.0-0.5)
[2025-04-01 20:02] LABS: Troponin I 0.01 ng/ml (0.00-0.034)
--- NOTE | 2025-04-01 20:08 | CT_ITS ---
PROCEDURE INFORMATION: Exam: CTA Chest With Contrast Exam date and time: 04/01/2025 8:33 PM Age: 65 years old Clinical indication: Other: Elevated d-dimer TECHNIQUE: Imaging protocol: Computed tomographic angiography of the chest with contrast. Exam focused on the arteries. 3D rendering (Not supervised by radiologist): MIP and/or 3D reconstructed images were created by the technologist. Radiation optimization: All CT scans at this facility use at least one of these dose optimization techniques: automated exposure control; mA and/or kV adjustment per patient size (includes targeted exams where dose is matched to clinical indication); or iterative reconstruction. Contrast material: ISOVUE; Contrast volume: 70 ml; Contrast route: INTRAVENOUS (IV); COMPARISON: CT LUNG SCREENING 09/18/2024 1:36 PM FINDINGS: Pulmonary arteries: Evaluation for pulmonary embolism is limited by quantum mottle (image noise) related to the patient's body habitus, significantly reducing the conspicuity of small vessels. No large central PE is identified, but segmental and subsegmental emboli cannot be confidently excluded. Aorta: Unremarkable. No aortic aneurysm. No aortic dissection. Lungs: The central tracheobronchial tree is patent. No focal consolidations. Scattered calcified granulomas in the right upper lobe and left lower lobe. Pleural spaces: Unremarkable. No pneumothorax. No pleural effusion. Heart: Unremarkable. No cardiomegaly. No pericardial effusion. Lymph nodes: Multiple calcified hilar and mediastinal lymph nodes. No suspicious lymphadenopathy. Gallbladder and biliary ducts: Post cholecystectomy. Spleen: The spleen demonstrates punctate calcifications, consistent with remote granulomatous organism exposure. Bones/joints: Multilevel degenerative changes of the spine. No acute fracture. Soft tissues: Unremarkable. IMPRESSION: 1. No pulmonary emboli. 2. No acute abnormalities.
--- NOTE | 2025-04-01 20:08 | CT_ITS ---
PROCEDURE INFORMATION: Exam: CT Abdomen And Pelvis With Contrast Exam date and time: 04/01/2025 8:33 PM Age: 65 years old Clinical indication: Other: Elevated lipase; Additional info: Elevated lipase, HX of cholecystectomy TECHNIQUE: Imaging protocol: Computed tomography of the abdomen and pelvis with contrast. 3D rendering (Not supervised by radiologist): MIP and/or 3D reconstructed images were created by the technologist. Radiation optimization: All CT scans at this facility use at least one of these dose optimization techniques: automated exposure control; mA and/or kV adjustment per patient size (includes targeted exams where dose is matched to clinical indication); or iterative reconstruction. Contrast material: ISOVUE; Contrast volume: 70 ml; Contrast route: IV; COMPARISON: CT LUNG SCREENING 09/18/2024 1:36 PM FINDINGS: Lungs: Left lung base calcified granuloma. Liver: The liver is normal. Gallbladder and biliary ducts: Post cholecystectomy. No abnormal bile duct dilation. Pancreas: The pancreas is normal. Spleen: The spleen demonstrates punctate calcifications, consistent with remote granulomatous organism exposure. Adrenal glands: The adrenal glands are normal. Kidneys and ureters: Left kidney 4.1 cm cyst. Kidneys are otherwise unremarkable. No hydronephrosis. Stomach and bowel: The stomach is normal. Extensive diverticulosis is present in the distal colon. There is no evidence of intestinal perforation or obstruction. Appendix: A normal appendix is identified. Intraperitoneal space: Unremarkable. No free air. No significant fluid collection. Vasculature: The vasculature demonstrates diffuse mild atherosclerotic calcification. No abdominal aortic aneurysm. Lymph nodes: Unremarkable. No enlarged lymph nodes. Urinary bladder: The bladder is normal. Reproductive: Unremarkable as visualized. Bones/joints: Unremarkable. No acute fracture. Soft tissues: Unremarkable. IMPRESSION: No acute abnormalities in the abdomen or pelvis. COMMENTS: Consistent with the [employer] [place] [employer] [employer]'s Incidental Findings Committee white paper ([facility] [place] [employer] 2018): Any incidental renal lesion less than 1 cm or classified as too small to characterize, or any incidental cystic renal lesion characterized as simple-appearing, is likely benign. No follow-up imaging is recommended for these lesions per consensus recommendations based on imaging criteria.
[2025-04-01 20:21] LABS: Triglycerides 232 mg/dl (30-150)
[2025-04-01] MEDS: 0.9 % SODIUM CHLORIDE 50 ML VIAL IV (20:37)
[2025-04-01] MEDS: IOPAMIDOL-370 (76%);100ML BOTTLE 70 ML IV (20:37)
[2025-04-01] MEDS: SODIUM CHLORIDE 0.9% 10ML SYR (RAD ONLY) 10 ML IV (20:37)
[2025-04-01] MEDS: POTASSIUM CHLORIDE 20MEQ TAB 40 MEQ PO (21:20)
[2025-04-01 22:54] LABS: Troponin I < 0.01 ng/ml (0.00-0.034)
--- NOTE | 2025-04-01 22:54 | PC.NURSE ---
called lab about second troponin results, lab stated that they are resulting in one minute
[2025-04-01 23:02] VITALS: BP 128/68; PULSE 85; RESP 18; TEMP 36.8; O2SAT 98
== END 2025-04-01 23:03 | disposition home or self-care (01) ==
PROVIDERS: Emergency Provider Student in an Organized Health Care Education/Training Program; PCP Family Medicine
DX: K85.90 Acute pancreatitis without necrosis or infection, unspecified (principal); R07.9 Chest pain, unspecified; R74.8 Abnormal levels of other serum enzymes; E11.9 Type 2 diabetes mellitus without complications; I10 Essential (primary) hypertension; E78.5 Hyperlipidemia, unspecified; Z79.84 Long term (current) use of oral hypoglycemic drugs; F17.210 Nicotine dependence, cigarettes, uncomplicated; Z79.85 Long-term (current) use of injectable non-insulin antidiabetic drugs
CPT/HCPCS: 71046; 71275; 74177; 80053; 83690; 84478; 84484; 85025; 85378; 85610; 93005; 99285; Q9967